=== PATIENT | female | born 1935 | race Caucasian/White ===

== ENCOUNTER 2017-03-08 11:25 | Inpatient (IN) ==
[2017-03-08] MEDS ORDERED: DOCUSATE SODIUM 100 MG CAPSULE PO PRN (12:14)
[2017-03-08] MEDS ORDERED: DEXTROSE 50% 25 GM/50 ML VIAL IV PRN (12:14)
[2017-03-08] MEDS ORDERED: ACETAMINOPHEN 325 MG TABLET PO PRN (12:14)
[2017-03-08] MEDS ORDERED: ONDANSETRON 4 MG/2 ML VIAL IV PRN (12:14)
[2017-03-08] MEDS ORDERED: GLUCAGON 1 MG VIAL IM PRN (12:14)
--- NOTE | 2017-03-08 12:40 | EKG Report ---
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
[2017-03-08 12:46] LABS: Basophils % 0.3 % (0.0-0.8); Eosinophils # 0.1 10*3/uL (0.0-0.87); Hematocrit 35.5 VOL% (35.7-47.0); Hemoglobin 11.8 GM/DL (12.0-16.0); Immature Granulocytes % 0.4 %; Immature Granulocytes Absolute 0.04 #; Lymphocytes # 1.5 10*3/uL (1.4-4.0); Lymphocytes % 14.7 % (21.3-54.2); Mean Corpuscular HGB Conc 33.2 GM/DL (32-36); Mean Corpuscular Hemoglobin 30 PG (27-34); Mean Corpuscular Volume 91.5 FL (87-102); Mean Platelet Volume 10.9 FL (9.6-12.0); Monocytes # 1.1 10*3/uL (0.11-0.8); Monocytes % 10.6 % (1.7-12.7); Neutrophils # 7.4 10*3/uL (1.4-7.4); Platelet Count 221 T/CUMM (130-400); Red Blood Count 3.88 MC/CUMM (3.8-5.5); White Blood Count 10.2 T/CUMM (4-12)
[2017-03-08 13:15] LABS: Albumin 3.2 G/DL (3.4-5.0); Bilirubin,Total 0.5 MG/DL (0.2-1.0); Calcium 10.2 MG/DL (8.5-10.1); Osmolality,Calculated 282.3 MOS/KG (273-304); Total Protein 6.6 G/DL (6.4-8.3)
--- NOTE | 2017-03-08 13:20 | Family Practice History&Phys ---
Assessment and Plan (1) Atrial fibrillation Status: Acute Assessment and plan: 03/08/2017: We are slowing her heart rate down some beta-blair and will get cardiology consult in the morning. We are checking some lab tonight Current Visit: No (2) Debility Status: Acute Assessment and plan: 03/08/2017. 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 Rice is a 81 year old female Lives at [facility]. Primary care patient of Dr. Corona. She has a history of intermittent atrial fibrillation. (Lately he has been in sinus rhythm), has a history of pacemaker. She is on beta-blair for this currently. Nonetheless she was very weak and noted to be back in atrial fibrillation and has some associated shortness of breath. She initially had a little chest fullness but never had any trell chest pain.. She also has a history of diabetes which is fairly well controlled with p.o. medications. At this time she also may have a urinary tract infection and we are going to treat this. Her culture did grow back halvnia lindsey and it is sensitive to Cipro which we will keep her on. Go with this time is to slow her rate down by increasing her beta-blair. I will get a cardiology consult in the morning Home Medications Medication Instructions Recorded Confirmed Type Cholecalciferol (Vitamin D3) 1,000 mg PO DAILY 06/25/16 03/08/17 History [Vitamin D3] Cyanocobalamin (Vitamin B-12) 1,000 mcg PO DAILY 06/25/16 03/08/17 History [Vitamin B-12] Estrogens(Conj) Tab [Premarin Tab] 0.625 mg PO DAILY 06/25/16 03/08/17 History Glimepiride [Amaryl] 2 mg PO BID 06/25/16 03/08/17 History Lidocaine [Lidocaine 5% Patch] 1 patch TOP DAILY 06/25/16 03/08/17 History Meloxicam [Mobic] 7.5 mg PO DAILY 06/25/16 03/08/17 History Sotalol HCl [Sotalol] 80 mg PO BID 06/25/16 03/08/17 History metFORMIN [Glucophage] 500 mg PO BID 06/25/16 03/08/17 History Acetaminophen Tab [Tylenol Tab] 650 mg PO Q6H PRN #0 tablet 07/08/16 03/08/17 Rx Gabapentin Cap/Tab [Neurontin 200 mg PO 1600 capsule 07/08/16 03/08/17 Rx Cap/Tab] Gabapentin Cap/Tab [Neurontin 300 mg PO BEDTIME capsule 07/08/16 03/08/17 Rx Cap/Tab] Magnesium Chloride [Slow Mag] 64 mg PO BID tablet 07/08/16 03/08/17 Rx Sertraline [Zoloft] 100 mg PO BEDTIME tablet 07/08/16 03/08/17 Rx Zaleplon [Sonata] 5 mg PO BEDTIME PRN #15 capsule 07/08/16 03/08/17 Rx cloNIDine TAB [Catapres Tab] 0.1 mg PO Q6H PRN #0 tablet 07/08/16 03/08/17 Rx clonazePAM TAB [KlonoPIN] 0.25 mg PO BEDTIME #15 tablet 07/08/16 03/08/17 Rx Aspirin EC Tab 325 mg PO DAILY #30 tablet 07/16/16 03/08/17 Rx Glimepiride 2 mg PO AC SUPPER #0 07/16/16 03/08/17 Rx OLANZapine [Olanzapine] 2.5 mg PO AC SUPPER #30 tablet 07/16/16 03/08/17 Rx OLANZapine TAB [ZyPREXA Tab] 5 mg PO Q8HR 03/08/17 03/08/17 History Allergies Allergy/AdvReac Type Severity Reaction Status Date / Time Penicillins Allergy Unknown/Unable Verified 07/05/16 02:19 to obtain potassium Allergy Anxiety Verified 06/25/16 12:26 penicillin V AdvReac Unknown Anxiety Verified 06/25/16 12:26 12 point system: reviewed and no additional remarkable complaints except as stated (That mentioned in the history and physical) Medical,Surgical,& Family Hx - Medical History Cardio: History of: Cardiac Dysrhythmia (A-Fib), Hypertension, Pacemaker Psychological: History of: Anxiety Disorders, Behavior Problems (pt has episodes of combativeness), Depression, Psychiatric Problems Comment Only: Violent Behavior (reported hx) Neurology: History of: Dementia No history of: Brain Aneurysm, Cerebral Hemorrhage, Cerebrovascular Accident , Cerebral Palsy, Migraine, Multiple Sclerosis, Parkinson's Disease, Peripheral Neuropathy, Seizures, TIA, Vertigo, Neurologocal Cancer Endocrine: History of: Diabetes Mellitus (IDDM), Diabetes Mellitus (NIDDM), Thyroid Disorder Gastrointestinal: History of: Diverticulitis/ Diverticulosis Musculoskeletal: History of: Back/Neck Problems, Degenerative Disk Disease - Surgical History Neurologic Surgeries: Patient denies: Brain Aneurysm, Cerebral Hemorrhage HEENT Surgeries: Surgical HX of: Tonsilectomy & Adenoidectomy Abdominal Surgeries: Surgical HX of: Abdominal Surgery, Cholecystectomy Reproductive Surgeries: Surgical HX of;: Hysterectomy (complete), Tubal Ligation - Social History Smoking Status: Former smoker Exam - Constitutional Exam: Patient very sluggish, weak unable to stand. Is somewhat confused at present HEENT pupils are equal reactive to light neck is supple trachea midline Cardiovascular rate is regular there is 1/6 systolic ejection murmur no gallop or rub Lungs clear except for a few basal rales Abdomen soft nondistended Extremities no clubbing cyanosis edema some week pedal pulses but positive Results - Labs CBC & BMP: 03/08/17 12:30
--- NOTE | 2017-03-08 13:24 | XRay Report ---
XR chest 1V portable Indication: Shortness of breath Comparison: Chest x-ray 07/04/2016 Technique: Portable AP chest was performed. Findings: The heart size appears within normal limits. Atherosclerotic calcification of the aortic knob appears stable. Cardiac pacemaker appears stable. Pulmonary vasculature demonstrates no specific abnormality. Hilar structures demonstrate fairly symmetric appearance. The lungs demonstrate little change from comparison study. Calcified nodules are suggested within the mid upper right lung. These nodules appear stable. Bones and soft tissues demonstrate no evidence of acute pathology. Impression: 1. No evidence of acute pathology. 03/08/2017 1:18 PM PROCEDURE INTERPRETED AT [facility] DEPARTMENT OF RADIOLOGY Final Report Signed by: Dr. Rocco Hansen
[2017-03-08] MEDS ORDERED: ENOXAPARIN 30 MG/0.3 ML SYRINGE SUBCUT SCH (13:30)
[2017-03-08] MEDS: SODIUM CHLORIDE 0.9% 1,000 ML IV SCH (13:32)
[2017-03-08 13:45] LABS: Free T4 (Free Thyroxine) 1.12 NG/DL (0.76-1.46); Magnesium 1.3 MG/DL (1.8-2.4); Troponin I Only < 0.015 NG/ML (0.00-0.045)
[2017-03-08] MEDS ORDERED: MAGNESIUM SULF RIDER 2 GM in PREMIX 1 EACH IV ONE (13:51)
[2017-03-08] MEDS ORDERED: OLANZapine 5 MG TABLET PO SCH (14:00)
[2017-03-08 14:58] LABS: Apearance,Urine CLEAR (Clear); Bilirubin,Urine Negative (Negative); Blood, Urine Negative (Negative); Glucose,Urine (UA) Negative (Negative); Hyaline Casts,Urine 3 /LPF (0-3); Ketones,Urine 5 mg/dL (Negative); Mucus,Urine Occasional /LPF (Occasional); Nitrite,Urine Negative (Negative); Protein,Urine Negative; RBC,Urine 2 /HPF (0-4); Squamous Epithelial Cell,Urine Occasional /HPF (0-10); Urine Color Yellow (Yellow); Urine Specific Gravity 1.012 (1.001-1.035); Urine Urobilinogen < 2.0 EU/DL (0.2-1.0); WBC,Urine 3 /HPF (0-6)
[2017-03-08] MEDS: INSULIN LISPRO 100 UNIT/ML SUBCUT SCH ×2 (17:02→20:20)
[2017-03-08] MEDS ORDERED: SOTALOL 80 MG TABLET PO ONE (19:16)
[2017-03-08] MEDS: SOTALOL 80 MG TABLET PO SCH (20:18)
[2017-03-08] MEDS: metFORMIN 500 MG TABLET PO SCH (20:20)
[2017-03-08] MEDS: GLIMEPIRIDE 2 MG TABLET PO SCH (21:23)
[2017-03-08] MEDS: clonazePAM 0.5 MG TABLET PO SCH (21:24)
[2017-03-08] MEDS: OLANZapine 5 MG TABLET PO SCH (21:25)
[2017-03-08] MEDS: SERTRALINE 100 MG TABLET PO SCH (21:25)
[2017-03-08] MEDS: MAGNESIUM CHLORIDE 64 MG TABLET PO SCH (21:25)
[2017-03-08] MEDS: CIPROFLOXACIN 500 MG TABLET PO SCH (21:25)
[2017-03-08] MEDS: GABAPENTIN 300 MG CAPSULE PO SCH (21:25)
[2017-03-09 06:12] LABS: Calcium 9.2 MG/DL (8.5-10.1); Magnesium 1.7 MG/DL (1.8-2.4); Osmolality,Calculated 281.3 MOS/KG (273-304)
[2017-03-09] MEDS: INSULIN LISPRO 100 UNIT/ML SUBCUT SCH ×4 (08:40→20:53)
--- NOTE | 2017-03-09 08:47 | Cardiology Consult Note ---
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 Status: Chronic Assessment and plan: SEE PLAN OF CARE LISTED BELOW Current Visit: No (5) Type 2 diabetes mellitus Status: Chronic Assessment and plan: SEE PLAN OF CARE LISTED BELOW Current Visit: No (6) Debility Status: Chronic Assessment and plan: SEE PLAN OF CARE LISTED BELOW Current Visit: No (7) S/P placement of cardiac pacemaker Status: Chronic Assessment and plan: SEE PLAN OF CARE LISTED BELOW Current Visit: Yes (8) Hypomagnesemia Status: Acute Assessment and plan: SEE PLAN OF CARE LISTED BELOW Current Visit: Yes History of Present Illness - Data of Consult Patient: new to practice (formerly a patient of Dr. Whitmore) Consult date: 03/08/17 Requesting Physician: Mann Rice Primary care physician: Taiwo Estevez - Consult Narrative Reason for consult: Afib w/ RVR History of present illness: HEAD NURSE: FORMERLY DR. WHITMORE PCP: DR. ESTEVEZ Ms. Rice is a 81 year old female who is formally followed by Dr. Paulo Whitmore. She has a history of paroxysmal atrial fibrillation, tachybradycardia syndrome status post dual-chamber pacemaker, chronic long-term dementia related to Alzheimer's, hypertension, type 2 diabetes, peripheral neuropathy. Risk factors are significant for: Age, hypertension, diabetes, sedentary lifestyle. The patient is the mother of Dr. Mann Rice. She resides at [facility] living [facility] in the memory care [facility]. Her daughter is at the bedside and helps in providing much of the history as the patient does have an impaired memory. Ms. Rice was admitted to the hospital yesterday with weakness, atrial fibrillation, and shortness of breath. Apparently Ms. Rice has been having weakness for the past week or so and has been undergoing treatment for urinary tract infection. Despite treatment, she has been getting weaker. Yesterday, the staff noticed that she was a little more short of breath than usual and when her [id number] went out to check on her, she noted that her heart rate was irregular and in the 120s. She denies any trell chest pain or chest discomfort, but her daughter is present and notes that she had some mild chest fullness. Patient has poor memory and does not recall these events very well. She has been on Sotalol 80mg PO BID and her dose has since been increased to 160mg PO BID. She is not currently on any chronic anticoagulation although her daughter reports she was on Aggrenox when she was fixing her medications approximately 8 months ago. To her knowledge, she has not had any overt bleeding episodes. Her H&H is currently stable. She has no other complaints presently and the daughter denies any knowledge of dizziness, lightheadedness, syncope. According to previous records by Dr. Whitmore, she has had a remote history of heart catheterization but it did not reveal any coronary artery disease. Dr. Mackay to follow with further plan and addendum. ASSESSMENT/PLAN: 1. PAROXYSMAL ATRIAL FIBRILLATION - Has been in and out of sinus rhythm. Currently in atrial fibrillation per cabbage salter. She was in NSR at approximately 0809 this morning and went back into AF a few minutes later. Her dose of Sotalol has been increased to 160mg PO BID. She is not currently on chronic anticoagulation which we will start her on. We'll start her on a beta blair to see if we can better control her heart rate. 2. HYPERTENSION - Currently well controlled. Will continue to monitor and adjust medications as directed. 3. URINARY TRACT INFECTION - Culture revealed halvnia lindsey and is sensitive to Cipro. Family medicine is following. 4. EARLY ONSET ALZHEIMER'S - She has chronic long-term dementia and is a resident of the memory care [facility] at [facility]. 5. TYPE 2 DIABETES MELLITUS - She has been started on sliding scale insulin. Family medicine is following. 6. DEBILITY - Physical therapy and Occupational therapy has been consulted to see her. 7. 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 Gonzalez on 12/27/13. 8. HYPOMAGNESEMIA - This is being replaced. CC: Taiwo Estevez MD - Home Medications and Allergies Home Medications: Home Medications Medication Instructions Recorded Confirmed Type Cholecalciferol (Vitamin D3) 1,000 mg PO DAILY 06/25/16 03/08/17 History [Vitamin D3] Cyanocobalamin (Vitamin B-12) 1,000 mcg PO DAILY 06/25/16 03/08/17 History [Vitamin B-12] Estrogens(Conj) Tab [Premarin Tab] 0.625 mg PO DAILY 06/25/16 03/08/17 History Glimepiride [Amaryl] 2 mg PO BID 06/25/16 03/08/17 History Lidocaine [Lidocaine 5% Patch] 1 patch TOP DAILY 06/25/16 03/08/17 History Meloxicam [Mobic] 7.5 mg PO DAILY 06/25/16 03/08/17 History Sotalol HCl [Sotalol] 80 mg PO BID 06/25/16 03/08/17 History metFORMIN [Glucophage] 500 mg PO BID 06/25/16 03/08/17 History Acetaminophen Tab [Tylenol Tab] 650 mg PO Q6H PRN #0 tablet 07/08/16 03/08/17 Rx Gabapentin Cap/Tab [Neurontin 200 mg PO 1600 capsule 07/08/16 03/08/17 Rx Cap/Tab] Gabapentin Cap/Tab [Neurontin 300 mg PO BEDTIME capsule 07/08/16 03/08/17 Rx Cap/Tab] Magnesium Chloride [Slow Mag] 64 mg PO BID tablet 07/08/16 03/08/17 Rx Sertraline [Zoloft] 100 mg PO BEDTIME tablet 07/08/16 03/08/17 Rx Zaleplon [Sonata] 5 mg PO BEDTIME PRN #15 capsule 07/08/16 03/08/17 Rx cloNIDine TAB [Catapres Tab] 0.1 mg PO Q6H PRN #0 tablet 07/08/16 03/08/17 Rx clonazePAM TAB [KlonoPIN] 0.25 mg PO BEDTIME #15 tablet 07/08/16 03/08/17 Rx Aspirin EC Tab 325 mg PO DAILY #30 tablet 07/16/16 03/08/17 Rx Glimepiride 2 mg PO AC SUPPER #0 07/16/16 03/08/17 Rx OLANZapine [Olanzapine] 2.5 mg PO AC SUPPER #30 tablet 07/16/16 03/08/17 Rx OLANZapine TAB [ZyPREXA Tab] 5 mg PO Q8HR 03/08/17 03/08/17 History Allergies/Adverse Reactions: Allergies Allergy/AdvReac Type Severity Reaction Status Date / Time Penicillins Allergy Unknown/Unable Verified 07/05/16 02:19 to obtain potassium Allergy Anxiety Verified 06/25/16 12:26 penicillin V AdvReac Unknown Anxiety Verified 06/25/16 12:26 ROS unobtainable: due to mental status, due to dementia 12 point system: reviewed and no additional remarkable complaints except as stated Medical,Surgical,& Family Hx - Medical History Cardio: History of: Cardiac Dysrhythmia (A-Fib), Hypertension, Pacemaker (dual chamber) Psychological: History of: Anxiety Disorders, Behavior Problems (pt has episodes of combativeness), Depression, Psychiatric Problems Comment Only: Violent Behavior (reported hx) Neurology: History of: Dementia No history of: Brain Aneurysm, Cerebral Hemorrhage, Cerebrovascular Accident , Cerebral Palsy, Migraine, Multiple Sclerosis, Parkinson's Disease, Peripheral Neuropathy, Seizures, TIA, Vertigo, Neurologocal Cancer Endocrine: History of: Diabetes Mellitus (IDDM), Diabetes Mellitus (NIDDM), Thyroid Disorder Gastrointestinal: History of: Diverticulitis/ Diverticulosis Musculoskeletal: History of: Back/Neck Problems, Degenerative Disk Disease - Surgical History Neurologic Surgeries: Patient denies: Brain Aneurysm, Cerebral Hemorrhage HEENT Surgeries: Surgical HX of: Tonsilectomy & Adenoidectomy Abdominal Surgeries: Surgical HX of: Abdominal Surgery, Cholecystectomy Reproductive Surgeries: Surgical HX of;: Hysterectomy (complete), Tubal Ligation - Social History Smoking Status: Former smoker Frequency of Alcohol Use: None (former alcohol use) Type of Drug Use: None Marital Status: Lives With:: [facility] Functional capacity: uses cane/walker Physical Examination Vital Signs Temp Pulse Resp BP Pulse Ox 99.9 F H 113 H 18 129/69 95 03/08/17 17:04 03/08/17 17:04 03/08/17 17:04 03/08/17 17:04 03/08/17 17:04 Other: General appearance: Pleasant and cooperative. Normal weight, no acute distress. Memory impairment. - Head Head exam: Present: normal inspection, normocephalic, atraumatic. Absent: hematoma, laceration - Eye Eye exam: Present: EOMI. Absent: conjunctival injection, nystagmus, periorbital swelling, scleral icterus, laceration to eyelids Pupils: Present: PERRL. Absent: constricted, dilated, fixed, irregular, unequal - ENT ENT exam: Present: normal exam, normal external ear exam - Neck Neck exam: Present: normal inspection. Absent: lymphadenopathy, meningismus, tenderness, thyromegaly - Respiratory Respiratory exam: Present: clear to auscultation bilaterally. Absent: accessory muscle use, chest wall tenderness - Cardiovascular Cardiovascular exam: Present: Irregular rate and rhythm, tachycardia. Absent: carotid bruit, gallop, JVD, rubs, murmur - GI/Abdominal GI/Abdominal exam: Present: normal bowel sounds, soft. Absent: distended, firm , guarding, hernia, mass, tenderness, rebound. - Extremities Exam Extremities exam: Present: normal inspection, normal capillary refill. Upper extremity pulses 2+. Lower extremity pulses 2+. Absent: calf tenderness, edema -Musculoskeletal Exam Musculoskeletal: Present: No Fluid Collection, No Pain, Normal Range of Motion - Back Exam Back exam: Present: normal inspection. Absent: muscle spasm, vertebral tenderness - Neurological Exam Neurological exam: Present: alert, oriented to person, grossly intact without resting or essential tremor, moderate memory impairment - Psychiatric Psychiatric exam: Present: normal affect, normal mood - Skin Skin exam: Present: normal color, warm, dry, intact. Absent: cyanosis, diaphoretic, rash, urticaria Result/EKG - Labs CBC & BMP: 03/08/17 12:30 03/09/17 04:21 Lab Results: I have reviewed the past 24 hour labs Labs: Laboratory Results - last 24 hr 03/08/17 03/08/17 03/08/17 12:28 12:30 12:30 WBC 10.2 RBC 3.88 Hgb 11.8 L Hct 35.5 L MCV 91.5 MCH 30 MCHC 33.2 RDW 13.0 Plt Count 221 MPV 10.9 Neut % (Auto) 73.0 Lymph % (Auto) 14.7 L [place] % (Auto) 10.6 Eos % (Auto) 1.0 Baso % (Auto) 0.3 Neut # (Auto) 7.4 Lymph # (Auto) 1.5 [place] # (Auto) 1.1 H Eos # (Auto) 0.1 Baso # (Auto) 0.0 Immature Gran % 0.4 Nucleated RBC % 0.0 Immature Gran # 0.04 Nucleated RBCs # 0.00 Sodium 141 Potassium 4.0 Chloride 103 Carbon Dioxide 29 Anion Gap 13.0 BUN 14 Creatinine 0.80 GFR Calculation 59 BUN/Creatinine Ratio 17.00 Glucose 110 H POC Glucose 121 H Calculated Osmolality 282.3 Calcium 10.2 H Magnesium Total Bilirubin 0.50 AST 13 ALT 11 L Alkaline Phosphatase 87 Total Creatine Kinase CK-MB (CK-2) Troponin I B-Natriuretic Peptide Total Protein 6.6 Albumin 3.2 L Globulin 3.4 Albumin/Globulin Ratio 0.9 L Free T4 TSH 3rd Generation Urine Color Urine Appearance Urine pH Ur Specific [place] Urine Protein Urine Glucose (UA) Urine Ketones Urine Blood Urine Nitrate Urine Bilirubin Urine Urobilinogen Urine Leukocytes Urine RBC Urine WBC Ur Squamous Epith Cells Hyaline Casts Urine Mucus Ur Culture Indicated? 03/08/17 03/08/17 03/08/17 12:30 12:30 14:41 WBC RBC Hgb Hct MCV MCH MCHC RDW Plt Count MPV Neut % (Auto) Lymph % (Auto) [place] % (Auto) Eos % (Auto) Baso % (Auto) Neut # (Auto) Lymph # (Auto) [place] # (Auto) Eos # (Auto) Baso # (Auto) Immature Gran % Nucleated RBC % Immature Gran # Nucleated RBCs # Sodium Potassium Chloride Carbon Dioxide Anion Gap BUN Creatinine GFR Calculation BUN/Creatinine Ratio Glucose POC Glucose Calculated Osmolality Calcium Magnesium 1.3 L Total Bilirubin AST ALT Alkaline Phosphatase Total Creatine Kinase 30 CK-MB (CK-2) < 1.0 Troponin I < 0.015 B-Natriuretic Peptide 93 Total Protein Albumin Globulin Albumin/Globulin Ratio Free T4 1.12 TSH 3rd Generation 1.930 Urine Color Yellow Urine Appearance Clear Urine pH 5.0 Ur Specific [place] 1.012 Urine Protein Negative Urine Glucose (UA) Negative Urine Ketones 5 Urine Blood Negative Urine Nitrate Negative Urine Bilirubin Negative Urine Urobilinogen < 2.0 H Urine Leukocytes Negative Urine RBC 2 Urine WBC 3 Ur Squamous Epith Cells Occasional Hyaline Casts 3 Urine Mucus Occasional Ur Culture Indicated? Not indicated 03/08/17 03/08/17 03/09/17 16:10 20:15 04:21 WBC RBC Hgb Hct MCV MCH MCHC RDW Plt Count MPV Neut % (Auto) Lymph % (Auto) [place] % (Auto) Eos % (Auto) Baso % (Auto) Neut # (Auto) Lymph # (Auto) [place] # (Auto) Eos # (Auto) Baso # (Auto) Immature Gran % Nucleated RBC % Immature Gran # Nucleated RBCs # Sodium 141 Potassium 4.0 Chloride 105 Carbon Dioxide 27 Anion Gap 13.0 BUN 12 Creatinine 0.80 GFR Calculation 59 BUN/Creatinine Ratio 15.00 Glucose 110 H POC Glucose 276 H 85 Calculated Osmolality 281.3 Calcium 9.2 Magnesium 1.7 L Total Bilirubin AST ALT Alkaline Phosphatase Total Creatine Kinase CK-MB (CK-2) Troponin I B-Natriuretic Peptide Total Protein Albumin Globulin Albumin/Globulin Ratio Free T4 TSH 3rd Generation Urine Color Urine Appearance Urine pH Ur Specific [place] Urine Protein Urine Glucose (UA) Urine Ketones Urine Blood Urine Nitrate Urine Bilirubin Urine Urobilinogen Urine Leukocytes Urine RBC Urine WBC Ur Squamous Epith Cells Hyaline Casts Urine Mucus Ur Culture Indicated? 03/09/17 07:58 WBC RBC Hgb Hct MCV MCH MCHC RDW Plt Count MPV Neut % (Auto) Lymph % (Auto) [place] % (Auto) Eos % (Auto) Baso % (Auto) Neut # (Auto) Lymph # (Auto) [place] # (Auto) Eos # (Auto) Baso # (Auto) Immature Gran % Nucleated RBC % Immature Gran # Nucleated RBCs # Sodium Potassium Chloride Carbon Dioxide Anion Gap BUN Creatinine GFR Calculation BUN/Creatinine Ratio Glucose POC Glucose 140 H Calculated Osmolality Calcium Magnesium Total Bilirubin AST ALT Alkaline Phosphatase Total Creatine Kinase CK-MB (CK-2) Troponin I B-Natriuretic Peptide Total Protein Albumin Globulin Albumin/Globulin Ratio Free T4 TSH 3rd Generation Urine Color Urine Appearance Urine pH Ur Specific [place] Urine Protein Urine Glucose (UA) Urine Ketones Urine Blood Urine Nitrate Urine Bilirubin Urine Urobilinogen Urine Leukocytes Urine RBC Urine WBC Ur Squamous Epith Cells Hyaline Casts Urine Mucus Ur Culture Indicated? - EKG EKG results: interpreted by me EKG shows: atrial fibrillation
[2017-03-09] MEDS: OLANZapine 5 MG TABLET PO SCH ×3 (08:51→20:56)
[2017-03-09] MEDS: CYANOCOBALAMIN 500 MCG TABLET PO SCH (08:51)
[2017-03-09] MEDS: CHOLECALCIFEROL 1,000 UNIT TABLET PO SCH (08:51)
[2017-03-09] MEDS: ESTROGENS (CONJ) 0.625 MG TABLET PO SCH (08:51)
[2017-03-09] MEDS: ASPIRIN EC 325 MG TABLET PO SCH (08:52)
[2017-03-09] MEDS: CIPROFLOXACIN 500 MG TABLET PO SCH ×2 (08:52→21:02)
[2017-03-09] MEDS: MAGNESIUM CHLORIDE 64 MG TABLET PO SCH ×2 (08:52→21:02)
[2017-03-09] MEDS: metFORMIN 500 MG TABLET PO SCH ×2 (08:52→21:02)
[2017-03-09] MEDS: GLIMEPIRIDE 2 MG TABLET PO SCH ×2 (08:52→20:58)
[2017-03-09] MEDS: PANTOPRAZOLE 40 MG TABLET PO SCH (08:52)
[2017-03-09] MEDS: SOTALOL 80 MG TABLET PO SCH ×2 (08:52→20:59)
[2017-03-09] MEDS: MELOXICAM 7.5 MG TABLET PO SCH (08:53)
[2017-03-09] MEDS: SODIUM CHLORIDE 0.9% 1,000 ML IV SCH (08:54)
--- NOTE | 2017-03-09 09:06 | Internal Med Progress Note ---
Assessment and Plan (1) Atrial fibrillation Status: Acute Assessment and plan: 81-year-old female admitted to acute care * Atrial fibrillation with rapid ventricular rate. She has history of paroxysmal atrial fibrillation. She is on Lovenox and her sotalol was increased. Cardiology will see the patient * UTI. Patient will be continued on Cipro. Her cultures were done in the office. * Diabetes. Patient will be continued on metformin and glimepiride * Alzheimer's dementia. Patient will continue on olanzapine. * Discussed with her son and daughter Current Visit: No (2) Urinary tract infection Status: Acute Current Visit: Yes (3) Hypertension Status: Acute Current Visit: No (4) Type 2 diabetes mellitus Status: Acute Current Visit: No Internal Medicine - PN: Subj Interval history: Patient seen and examined. She was admitted yesterday with A. fib and rapid ventricular rate. Patient's sotalol was increased by Dr. Rice. She denies any complaints. Patient has advanced dementia and is unable to provide any history. She denies any chest pain or shortness of breath. She denies any nausea or vomiting Exam (Progress Note) - Constitutional Vitals: Period Temp Pulse Resp BP Sys/Sykes Pulse Ox Last 24 Hr 97.8 F-100.8 F 81-131 12-21 109-169/57-90 90-95 Exam: Examination: GENERAL: NAD. HEENT: PERRLA. EOMI. Mucous membranes are moist. NECK: Neck is supple. No JVD. No carotid bruit. CVS: Rhythm is irregularly irregular. S1 and S2 are normal RESPIRATORY: Lungs are clear. No rales or rhonchi. ABDOMEN: Soft and nontender. Bowel sounds are present. EXT: No edema. Peripheral pulses are present. PAY AGENT: Patient is awake and alert but extremely confused. She is moving both upper and lower extremities SKIN: Warm and dry. MSK: No obvious deformity. Results - Labs CBC & BMP: 03/08/17 12:30 03/09/17 04:21 Lab Results: I have reviewed the past 24 hour labs
[2017-03-09] MEDS ORDERED: APIXABAN 2.5 MG TABLET PO SCH (09:30)
[2017-03-09] MEDS ORDERED: METOPROLOL TARTRATE 25 MG TABLET PO SCH (09:30)
--- NOTE | 2017-03-09 09:33 | EKG Report ---
Stationary ECG Study [facility] Test Date: 03/09/2017 9:32:31 AM Pat Name: SAMINA ROMERO Department: Room: 289 Gender: F Rn Admissions: JERONIMO : 1935 Requested by: Tsering Christie Order Number: [id number] Reading MD: ALBA HANDLEY Intervals [place] Rate: 114 P: 249 NV: 238 QRS: -87 QRSD: 117 T: 58 QT: 383 QTc: 450 Interpretive Statements ECTOPIC ATRIAL TACHYCARDIA WITH PROLONGED [place] INTERVAL RIGHT BUNDLE BRANCH BLOCK POSSIBLE ANTERIOR MYOCARDIAL INFARCTION, OF INDETERMINATE AGE IF PRESENT INFERIOR MYOCARDIAL INFARCTION, PROBABLY OLD Electronically Signed On 03-09-17 11:54:06 CDT by ALBA HANDLEY [email or web address]
[2017-03-09] MEDS ORDERED: MAGNESIUM SULF RIDER 2 GM in PREMIX 1 EACH IV PRN (10:01)
[2017-03-09] MEDS ORDERED: MAGNESIUM SULF RIDER 4 GM in PREMIX 1 EACH IV PRN (10:01)
[2017-03-09] MEDS: DILTIAZEM CD 120 MG CAPSULE PO SCH (10:40)
[2017-03-09] MEDS: clonazePAM 0.5 MG TABLET PO SCH (20:55)
[2017-03-09] MEDS: GABAPENTIN 300 MG CAPSULE PO SCH (20:56)
[2017-03-09] MEDS: SERTRALINE 100 MG TABLET PO SCH (20:56)
[2017-03-10] MEDS: SODIUM CHLORIDE 0.9% 1,000 ML IV SCH (05:27)
[2017-03-10 06:12] LABS: Basophils % 0.3 % (0.0-0.8); Eosinophils # 0.2 10*3/uL (0.0-0.87); Hematocrit 34.8 VOL% (35.7-47.0); Hemoglobin 11.4 GM/DL (12.0-16.0); Immature Granulocytes % 0.4 %; Immature Granulocytes Absolute 0.03 #; Lymphocytes % 13.5 % (21.3-54.2); Mean Corpuscular HGB Conc 32.8 GM/DL (32-36); Mean Corpuscular Hemoglobin 31 PG (27-34); Mean Corpuscular Volume 93.5 FL (87-102); Mean Platelet Volume 11.1 FL (9.6-12.0); Monocytes # 0.7 10*3/uL (0.11-0.8); Neutrophils # 5.6 10*3/uL (1.4-7.4); Neutrophils % 74.8 % (38.7-73.9); Platelet Count 235 T/CUMM (130-400); Red Blood Count 3.72 MC/CUMM (3.8-5.5); Red Cell Distribution Width 12.9 % (9.3-17.3); White Blood Count 7.5 T/CUMM (4-12)
[2017-03-10 06:32] LABS: Platelet Estimate Adequate
[2017-03-10 06:53] LABS: Calcium 8.8 MG/DL (8.5-10.1); Magnesium 1.9 MG/DL (1.8-2.4); Osmolality,Calculated 286.8 MOS/KG (273-304); Potassium 4.2 MMOL/L (3.5-5.1)
--- NOTE | 2017-03-10 08:13 | EKG Report ---
Stationary ECG Study [facility] Test Date: 03/10/2017 7:35:12 AM Pat Name: SAMINA ROMERO Department: Room: 289 Gender: F Counselor Manager: JERONIMO : 1935 Requested by: sTering Christie Order Number: [id number] Reading MD: ALBA HANDLEY Intervals [place] Rate: 100 P: 999 ME: 0 QRS: 213 QRSD: 121 T: 44 QT: 396 QTc: 453 Interpretive Statements ATRIAL FIBRILLATION WITH RAPID VENTRICULAR RESPONSE MARKED RIGHT AXIS DEVIATION INFERIOR MYOCARDIAL INFARCTION, PROBABLY OLD Electronically Signed On 03-10-17 14:41:27 CDT by ALBA HANDLEY [id number]
[2017-03-10] MEDS: CIPROFLOXACIN 500 MG TABLET PO SCH ×2 (08:59→21:07)
[2017-03-10] MEDS: PANTOPRAZOLE 40 MG TABLET PO SCH (08:59)
[2017-03-10] MEDS: GLIMEPIRIDE 2 MG TABLET PO SCH ×2 (08:59→21:07)
[2017-03-10] MEDS: OLANZapine 5 MG TABLET PO SCH ×3 (08:59→21:07)
[2017-03-10] MEDS: CYANOCOBALAMIN 500 MCG TABLET PO SCH (08:59)
[2017-03-10] MEDS: ESTROGENS (CONJ) 0.625 MG TABLET PO SCH (08:59)
[2017-03-10] MEDS: ASPIRIN EC 325 MG TABLET PO SCH (08:59)
[2017-03-10] MEDS: MELOXICAM 7.5 MG TABLET PO SCH (09:00)
[2017-03-10] MEDS: SOTALOL 80 MG TABLET PO SCH ×2 (09:00→21:07)
[2017-03-10] MEDS: CHOLECALCIFEROL 1,000 UNIT TABLET PO SCH (09:00)
[2017-03-10] MEDS: INSULIN LISPRO 100 UNIT/ML SUBCUT SCH ×4 (09:00→21:08)
[2017-03-10] MEDS: metFORMIN 500 MG TABLET PO SCH ×2 (09:00→21:07)
[2017-03-10] MEDS: MAGNESIUM CHLORIDE 64 MG TABLET PO SCH ×2 (09:00→21:07)
[2017-03-10] MEDS: DILTIAZEM CD 120 MG CAPSULE PO SCH (09:00)
--- NOTE | 2017-03-10 09:48 | Internal Med Progress Note ---
Assessment and Plan (1) Atrial fibrillation Status: Acute Assessment and plan: 81-year-old female admitted to acute care * Atrial fibrillation with rapid ventricular rate. Cardizem was added. Heart rate is better controlled but still elevated. * UTI. Patient will be continued on Cipro. * Diabetes. Patient will be continued on metformin and glimepiride * Alzheimer's dementia. Patient will continue on olanzapine. * Discussed with her daughter Current Visit: No (2) Urinary tract infection Status: Acute Current Visit: Yes (3) Hypertension Status: Chronic Current Visit: No (4) Type 2 diabetes mellitus Status: Chronic Current Visit: No Internal Medicine - PN: Subj Interval history: She is feeling better this morning. She is more clear. No chest pain or shortness of breath. No nausea vomiting or diarrhea. Exam (Progress Note) - Constitutional Vitals: Period Temp Pulse Resp BP Sys/Sykes Pulse Ox Last 24 Hr 96.9 F-99.8 F 62-118 16-20 106-128/58-74 90-96 Exam: Examination: GENERAL: NAD. NECK: Neck is supple. CVS: Rhythm is irregularly irregular. S1 and S2 are normal RESPIRATORY: Lungs are clear. No rales or rhonchi. ABDOMEN: Soft and nontender. EXT: No edema. UNDER SHERIFF: Patient is awake and alert but extremely confused. SKIN: Warm and dry. Results - Labs CBC & BMP: 03/10/17 05:21 03/10/17 05:21 Lab Results: I have reviewed the past 24 hour labs
--- NOTE | 2017-03-10 15:30 | Cardiology Progress Note ---
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 WHITMORE, will need F/U with DR. HANDLEY PCP: DR. WAGNER Ms. Rice is a 81 year old female who was admitted to the hospital yesterday with weakness, atrial fibrillation, and shortness of breath. She has a history of paroxysmal atrial fibrillation, tachybradycardia syndrome status post dual-chamber pacemaker, chronic long-term dementia related to Alzheimer's, hypertension, type 2 diabetes, peripheral neuropathy. Ms. Rice was admitted with A. fib/RVR, UTI, dehydration, hypomagnesemia, malaise and chest pain. Symptoms improved with electrolyte and fluid repletion, antibiotics. We continued her Sotalol at 80mg PO BID and started her on Cardizem CD 120mg po daily. She has a CHADSVASC 7. Previously, she could not tolerate even Aggrenox due to very frail skin. She is not a candidate for anticoagulation or VASYL closure. We will continue aspirin. Overall, she is improved today. She seems a little stronger. She is much more talkative today although she still has a significant memory impairment. Dr. Mackay to follow with further plan and addendum. Upon discharge, she will need follow up with Dr. Handley. ASSESSMENT/PLAN: 1. PAROXYSMAL ATRIAL FIBRILLATION - Has been in and out of sinus rhythm. Currently sinus rhythm per lab scientist. Rates are better controlled since adding Cardizem. She has been running in the 90's this afternoon. She did complain of some chest pain but has had a negative CAD evaluation in the past. Her RVR may have contributed to this. We will continue to pursue medical management at this time. 2. HYPERTENSION - Currently well controlled. Will continue to monitor and adjust medications as directed. 3. URINARY TRACT INFECTION - Culture revealed halvnia lindsey and is sensitive to Cipro. Family medicine is following. 4. EARLY ONSET ALZHEIMER'S - She has chronic long-term dementia and is a resident of the memory care [facility] at [facility]. 5. TYPE 2 DIABETES MELLITUS - She has been started on sliding scale insulin. Family medicine is following. 6. DEBILITY - Physical therapy and Occupational therapy have been consulted to see her. Given her weakened state, neonatal social worker has discussed with her daughter the possibility of transfer to a rehab facility or swingbed unit prior to her return to assisted living. I was present for this discussion today and her daughter seemed agreeable to this plan. 7. 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 Handley on 12/27/13. We will have her PM interrogated. 8. HYPOMAGNESEMIA - Continue replacement. Exam (Progress Note) - Constitutional Vitals: Period Temp Pulse Resp BP Sys/Sykes Pulse Ox Last 24 Hr 96.9 F-99.8 F 62-118 16-18 106-128/58-74 92-96 Exam: General appearance: Pleasant and cooperative. Normal weight, no acute distress. Memory impairment. - Head Head exam: Present: normal inspection, normocephalic, atraumatic. Absent: hematoma, laceration - Eye Eye exam: Present: EOMI. Absent: conjunctival injection, nystagmus, periorbital swelling, scleral icterus, laceration to eyelids Pupils: Present: PERRL. Absent: constricted, dilated, fixed, irregular, unequal - ENT ENT exam: Present: normal exam, normal external ear exam - Neck Neck exam: Present: normal inspection. Absent: lymphadenopathy, meningismus, tenderness, thyromegaly - Respiratory Respiratory exam: Present: clear to auscultation bilaterally. Absent: accessory muscle use, chest wall tenderness - Cardiovascular Cardiovascular exam: Present: Regular rate and rhythm. Absent: carotid bruit, gallop, JVD, rubs, murmur - GI/Abdominal GI/Abdominal exam: Present: normal bowel sounds, soft. Absent: distended, firm , guarding, hernia, mass, tenderness, rebound. - Extremities Exam Extremities exam: Present: normal inspection, normal capillary refill. Upper extremity pulses 2+. Lower extremity pulses 2+. Absent: calf tenderness, edema -Musculoskeletal Exam Musculoskeletal: Present: No Fluid Collection, No Pain, Normal Range of Motion - Back Exam Back exam: Present: normal inspection. Absent: muscle spasm, vertebral tenderness - Neurological Exam Neurological exam: Present: alert, oriented to person, grossly intact without resting or essential tremor, moderate memory impairment - Psychiatric Psychiatric exam: Present: normal affect, normal mood - Skin Skin exam: Present: normal color, warm, dry, intact. Absent: cyanosis, diaphoretic, rash, urticaria Result/EKG - Labs CBC & BMP: 03/10/17 05:21 03/10/17 05:21 Lab Results: I have reviewed the past 24 hour labs Labs: Laboratory Results - last 24 hr 03/09/17 03/09/17 03/09/17 12:32 16:54 20:23 WBC RBC Hgb Hct MCV MCH MCHC RDW Plt Count MPV Neut % (Auto) Lymph % (Auto) [place] % (Auto) Eos % (Auto) Baso % (Auto) Neut # (Auto) Lymph # (Auto) [place] # (Auto) Eos # (Auto) Baso # (Auto) Immature Gran % Nucleated RBC % Immature Gran # Nucleated RBCs # Platelet Estimate Morphology Comment Sodium Potassium Chloride Carbon Dioxide Anion Gap BUN Creatinine GFR Calculation BUN/Creatinine Ratio Glucose POC Glucose 160 H 167 H 315 H Calculated Osmolality Calcium Magnesium 03/10/17 03/10/17 03/10/17 05:21 05:21 07:55 WBC 7.5 RBC 3.72 L Hgb 11.4 L Hct 34.8 L MCV 93.5 MCH 31 MCHC 32.8 RDW 12.9 Plt Count 235 MPV 11.1 Neut % (Auto) 74.8 H Lymph % (Auto) 13.5 L [place] % (Auto) 9.0 Eos % (Auto) 2.0 Baso % (Auto) 0.3 Neut # (Auto) 5.6 Lymph # (Auto) 1.0 L [place] # (Auto) 0.7 Eos # (Auto) 0.2 Baso # (Auto) 0.0 Immature Gran % 0.4 Nucleated RBC % 0.0 Immature Gran # 0.03 Nucleated RBCs # 0.00 Platelet Estimate Adequate Morphology Comment Sodium 144 Potassium 4.2 Chloride 110 H Carbon Dioxide 25 Anion Gap 13.2 BUN 14 Creatinine 0.80 GFR Calculation 59 BUN/Creatinine Ratio 17.00 Glucose 98 POC Glucose 108 H Calculated Osmolality 286.8 Calcium 8.8 Magnesium 1.9 03/10/17 11:26 WBC RBC Hgb Hct MCV MCH MCHC RDW Plt Count MPV Neut % (Auto) Lymph % (Auto) [place] % (Auto) Eos % (Auto) Baso % (Auto) Neut # (Auto) Lymph # (Auto) [place] # (Auto) Eos # (Auto) Baso # (Auto) Immature Gran % Nucleated RBC % Immature Gran # Nucleated RBCs # Platelet Estimate Morphology Comment Sodium Potassium Chloride Carbon Dioxide Anion Gap BUN Creatinine GFR Calculation BUN/Creatinine Ratio Glucose POC Glucose 230 H Calculated Osmolality Calcium Magnesium - EKG EKG results: interpreted by me, sinus rhythm
[2017-03-10] MEDS: DOCUSATE SODIUM 100 MG CAPSULE PO SCH (21:06)
[2017-03-10] MEDS: SERTRALINE 100 MG TABLET PO SCH (21:07)
[2017-03-10] MEDS: clonazePAM 0.5 MG TABLET PO SCH (21:07)
[2017-03-10] MEDS: GABAPENTIN 300 MG CAPSULE PO SCH (21:08)
[2017-03-11 06:16] LABS: Basophils % 0.5 % (0.0-0.8); Eosinophils # 0.2 10*3/uL (0.0-0.87); Eosinophils % 3.1 % (0.00-10.9); Hematocrit 31.4 VOL% (35.7-47.0); Immature Granulocytes % 0.3 %; Immature Granulocytes Absolute 0.02 #; Lymphocytes # 1.2 10*3/uL (1.4-4.0); Lymphocytes % 18.7 % (21.3-54.2); Mean Corpuscular HGB Conc 31.8 GM/DL (32-36); Mean Corpuscular Hemoglobin 30 PG (27-34); Mean Corpuscular Volume 93.2 FL (87-102); Mean Platelet Volume 11.4 FL (9.6-12.0); Monocytes # 0.8 10*3/uL (0.11-0.8); Monocytes % 12.6 % (1.7-12.7); Neutrophils # 4.2 10*3/uL (1.4-7.4); Neutrophils % 64.8 % (38.7-73.9); Platelet Count 263 T/CUMM (130-400); Red Blood Count 3.37 MC/CUMM (3.8-5.5); White Blood Count 6.5 T/CUMM (4-12)
[2017-03-11 06:45] LABS: Calcium 8.5 MG/DL (8.5-10.1); Osmolality,Calculated 288.6 MOS/KG (273-304); Potassium 4.3 MMOL/L (3.5-5.1)
--- NOTE | 2017-03-11 07:52 | EKG Report ---
Stationary ECG Study [facility] Test Date: 03/11/2017 7:51:59 AM Pat Name: SAMINA ROMERO Department: Room: 289 Gender: F Lunchroom Operator: JERONIMO : 1935 Requested by: Tsering Christie Order Number: [id number] Reading MD: DUNCAN TOUSSAINT Intervals [place] Rate: 108 P: 999 SD: 0 QRS: 259 QRSD: 105 T: 64 QT: 349 QTc: 412 Interpretive Statements ATRIAL FIBRILLATION WITH RAPID VENTRICULAR RESPONSE MARKED RIGHT AXIS DEVIATION LOW QRS VOLTAGE IN EXTREMITY LEADS ANTEROSEPTAL MYOCARDIAL INFARCTION, OF INDETERMINATE AGE Electronically Signed On 03-11-17 21:54:22 CDT by DUNCAN TOUSSAINT [email or web address]
--- NOTE | 2017-03-11 08:52 | Internal Med Progress Note ---
Assessment and Plan (1) Atrial fibrillation Status: Acute Assessment and plan: 81-year-old female admitted to acute care * Atrial fibrillation with rapid ventricular rate. Patient converted to sinus rhythm yesterday. Her heart rate has been well controlled except for this morning. * UTI. Patient will be continued on Cipro. * Diabetes. Patient will be continued on metformin and glimepiride * Alzheimer's dementia. Patient will continue on olanzapine. * Constipation. Will give her MiraLAX as needed. Hopefully home later today or tomorrow. * Discussed with her daughter Current Visit: No (2) Urinary tract infection Status: Acute Current Visit: Yes (3) Hypertension Status: Chronic Current Visit: No (4) Type 2 diabetes mellitus Status: Chronic Current Visit: No Internal Medicine - PN: Subj Interval history: She is feeling better this morning. No specific complaints. No bowel movement for several days Exam (Progress Note) - Constitutional Vitals: Period Temp Pulse Resp BP Sys/Sykes Pulse Ox Last 24 Hr 96.7 F-100.5 F 65-111 16-22 104-154/60-79 90-96 Exam: Examination: GENERAL: NAD. NECK: Neck is supple. CVS: Rhythm is regular. She is tachycardic. S1 and S2 are normal RESPIRATORY: Lungs are clear. No rales or rhonchi. ABDOMEN: Soft and nontender. EXT: No edema. PSYCHIATRIC SOCIAL WORKER SUPERVISOR: Patient is awake and alert with decreased confusion SKIN: Warm and dry. Results - Labs CBC & BMP: 03/11/17 04:19 03/11/17 04:19 Lab Results: I have reviewed the past 24 hour labs
[2017-03-11] MEDS: CYANOCOBALAMIN 500 MCG TABLET PO SCH (10:34)
[2017-03-11] MEDS: metFORMIN 500 MG TABLET PO SCH ×2 (10:35→23:06)
[2017-03-11] MEDS: SOTALOL 80 MG TABLET PO SCH ×2 (10:35→23:06)
[2017-03-11] MEDS: DILTIAZEM CD 120 MG CAPSULE PO SCH (10:35)
[2017-03-11] MEDS: OLANZapine 5 MG TABLET PO SCH ×3 (10:35→23:06)
[2017-03-11] MEDS: DOCUSATE SODIUM 100 MG CAPSULE PO SCH ×2 (10:35→23:03)
[2017-03-11] MEDS: CHOLECALCIFEROL 1,000 UNIT TABLET PO SCH (10:35)
[2017-03-11] MEDS: ASPIRIN EC 325 MG TABLET PO SCH (10:35)
[2017-03-11] MEDS: PANTOPRAZOLE 40 MG TABLET PO SCH (10:35)
[2017-03-11] MEDS: MELOXICAM 7.5 MG TABLET PO SCH (10:35)
[2017-03-11] MEDS: CIPROFLOXACIN 500 MG TABLET PO SCH ×2 (10:36→23:03)
[2017-03-11] MEDS: INSULIN LISPRO 100 UNIT/ML SUBCUT SCH ×4 (10:36→23:02)
[2017-03-11] MEDS: GLIMEPIRIDE 2 MG TABLET PO SCH ×2 (10:36→23:03)
[2017-03-11] MEDS: MAGNESIUM CHLORIDE 64 MG TABLET PO SCH ×2 (10:36→23:03)
[2017-03-11] MEDS: ESTROGENS (CONJ) 0.625 MG TABLET PO SCH (10:36)
[2017-03-11] MEDS: POLYETHYLENE GLYCOL POWDER 17 GM PACK PO PRN (10:37)
--- NOTE | 2017-03-11 16:24 | Cardiology Progress Note ---
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 WHITMORE, will need F/U with DR. HANDLEY PCP: DR. WAGNER Ms. Rice is a 81 year old female who was admitted to the hospital yesterday with weakness, atrial fibrillation, and shortness of breath. She has a history of paroxysmal atrial fibrillation, tachybradycardia syndrome status post dual-chamber pacemaker, chronic long-term dementia related to Alzheimer's, hypertension, type 2 diabetes, peripheral neuropathy. Ms. Rice was admitted with A. fib/RVR, UTI, dehydration, hypomagnesemia, malaise and chest pain. Symptoms improved with electrolyte and fluid repletion, antibiotics. We continued her Sotalol at 80mg PO BID and started her on Cardizem CD 120mg po daily. She has a CHADSVASC 7. Previously, she could not tolerate even Aggrenox due to very frail skin. She is not a candidate for anticoagulation or VASYL closure. We will continue aspirin. Overall, she is improved today. She seems a little stronger. She is much more talkative today although she still has a significant memory impairment. She did have some elevated heart rates today, but these were noted after showering and after walking in the halls. At rest, she still is borderline tachycardic. We'll increase her Cardizem to 180mg po daily. I believe she will be discharged home tomorrow. ASSESSMENT/PLAN: 1. PAROXYSMAL ATRIAL FIBRILLATION - Has been in and out of sinus rhythm. Currently sinus rhythm per software developer intern. Rates are better controlled since adding Cardizem. She has been running in the 90's this afternoon. She did complain of some chest pain but has had a negative CAD evaluation in the past. Her RVR may have contributed to this. We will continue to pursue medical management at this time. 2. HYPERTENSION - Currently well controlled. Will continue to monitor and adjust medications as directed. 3. URINARY TRACT INFECTION - Culture revealed halvnia lindsey and is sensitive to Cipro. Family medicine is following. 4. EARLY ONSET ALZHEIMER'S - She has chronic long-term dementia and is a resident of the memory care [facility] at [facility]. 5. TYPE 2 DIABETES MELLITUS - She has been started on sliding scale insulin. Family medicine is following. 6. DEBILITY - Physical therapy and Occupational therapy have been consulted to see her. Given her weakened state, social work associate has discussed with her daughter the possibility of transfer to a rehab facility or swingbed unit prior to her return to assisted living. I was present for this discussion today and her daughter seemed agreeable to this plan. 7. 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 Handley on 12/27/13. We will have her PM interrogated. 8. HYPOMAGNESEMIA - Continue replacement. Dr. Mackay to follow with further plan and addendum. Upon discharge, she will need follow up with Dr. Handley. Exam (Progress Note) - Constitutional Vitals: Period Temp Pulse Resp BP Sys/Sykes Pulse Ox Last 24 Hr 96.7 F-100.5 F 65-114 16-22 117-154/60-79 90-96 Exam: General appearance: Pleasant and cooperative. Normal weight, no acute distress. Memory impairment. - Head Head exam: Present: normal inspection, normocephalic, atraumatic. Absent: hematoma, laceration - Eye Eye exam: Present: EOMI. Absent: conjunctival injection, nystagmus, periorbital swelling, scleral icterus, laceration to eyelids Pupils: Present: PERRL. Absent: constricted, dilated, fixed, irregular, unequal - ENT ENT exam: Present: normal exam, normal external ear exam - Neck Neck exam: Present: normal inspection. Absent: lymphadenopathy, meningismus, tenderness, thyromegaly - Respiratory Respiratory exam: Present: clear to auscultation bilaterally. Absent: accessory muscle use, chest wall tenderness - Cardiovascular Cardiovascular exam: Present: Regular rate and rhythm. Absent: carotid bruit, gallop, JVD, rubs, murmur - GI/Abdominal GI/Abdominal exam: Present: normal bowel sounds, soft. Absent: distended, firm , guarding, hernia, mass, tenderness, rebound. - Extremities Exam Extremities exam: Present: normal inspection, normal capillary refill. Upper extremity pulses 2+. Lower extremity pulses 2+. Absent: calf tenderness, edema -Musculoskeletal Exam Musculoskeletal: Present: No Fluid Collection, No Pain, Normal Range of Motion - Back Exam Back exam: Present: normal inspection. Absent: muscle spasm, vertebral tenderness - Neurological Exam Neurological exam: Present: alert, oriented to person, grossly intact without resting or essential tremor, moderate memory impairment - Psychiatric Psychiatric exam: Present: normal affect, normal mood - Skin Skin exam: Present: normal color, warm, dry, intact. Absent: cyanosis, diaphoretic, rash, urticaria Result/EKG - Labs CBC & BMP: 03/11/17 04:19 03/11/17 04:19 Lab Results: I have reviewed the past 24 hour labs Labs: Laboratory Results - last 24 hr 03/10/17 03/10/17 03/11/17 16:06 20:02 04:19 WBC 6.5 RBC 3.37 L Hgb 10.0 L Hct 31.4 L MCV 93.2 MCH 30 MCHC 31.8 L RDW 13.0 Plt Count 263 MPV 11.4 Neut % (Auto) 64.8 Lymph % (Auto) 18.7 L [place] % (Auto) 12.6 Eos % (Auto) 3.1 Baso % (Auto) 0.5 Neut # (Auto) 4.2 Lymph # (Auto) 1.2 L Iron # (Auto) 0.8 Eos # (Auto) 0.2 Baso # (Auto) 0.0 Immature Gran % 0.3 Nucleated RBC % 0.0 Immature Gran # 0.02 Nucleated RBCs # 0.00 Sodium Potassium Chloride Carbon Dioxide Anion Gap BUN Creatinine GFR Calculation BUN/Creatinine Ratio Glucose POC Glucose 144 H 255 H Calculated Osmolality Calcium 03/11/17 03/11/1717 04:19 07:17 11:13 WBC RBC Hgb Hct MCV MCH MCHC RDW Plt Count MPV Neut % (Auto) Lymph % (Auto) [place] % (Auto) Eos % (Auto) Baso % (Auto) Neut # (Auto) Lymph # (Auto) [place] # (Auto) Eos # (Auto) Baso # (Auto) Immature Gran % Nucleated RBC % Immature Gran # Nucleated RBCs # Sodium 146 H Potassium 4.3 Chloride 113 H Carbon Dioxide 23 Anion Gap 14.3 BUN 12 Creatinine 0.90 GFR Calculation 51 BUN/Creatinine Ratio 13.00 Glucose 83 POC Glucose 91 248 H Calculated Osmolality 288.6 Calcium 8.5 - EKG EKG results: interpreted by me (AV paced with underlying sinus rhythm, occasional tachycardia)
[2017-03-11] MEDS: clonazePAM 0.5 MG TABLET PO SCH (22:58)
[2017-03-11] MEDS: GABAPENTIN 300 MG CAPSULE PO SCH (23:03)
[2017-03-11] MEDS: SERTRALINE 100 MG TABLET PO SCH (23:06)
[2017-03-12] MEDS ORDERED: LACTULOSE 20 GM/30 ML UDCUP PO PRN (08:16)
[2017-03-12] MEDS ORDERED: BISACODYL 10 MG SUPP RECTAL PRN (08:17)
[2017-03-12] MEDS: metFORMIN 500 MG TABLET PO SCH ×2 (08:47→22:43)
[2017-03-12] MEDS: INSULIN LISPRO 100 UNIT/ML SUBCUT SCH ×4 (08:47→22:41)
[2017-03-12] MEDS: GLIMEPIRIDE 2 MG TABLET PO SCH ×2 (08:47→22:43)
[2017-03-12] MEDS: POLYETHYLENE GLYCOL POWDER 17 GM PACK PO PRN (09:56)
[2017-03-12] MEDS: CYANOCOBALAMIN 500 MCG TABLET PO SCH (09:56)
[2017-03-12] MEDS: DILTIAZEM CD 180 MG CAPSULE PO SCH (09:56)
[2017-03-12] MEDS: DOCUSATE SODIUM 100 MG CAPSULE PO SCH ×2 (09:56→22:41)
[2017-03-12] MEDS: ESTROGENS (CONJ) 0.625 MG TABLET PO SCH (09:57)
[2017-03-12] MEDS: ASPIRIN EC 325 MG TABLET PO SCH (09:57)
[2017-03-12] MEDS: CHOLECALCIFEROL 1,000 UNIT TABLET PO SCH (09:57)
[2017-03-12] MEDS: PANTOPRAZOLE 40 MG TABLET PO SCH (09:57)
[2017-03-12] MEDS: MELOXICAM 7.5 MG TABLET PO SCH (09:57)
[2017-03-12] MEDS: MAGNESIUM CHLORIDE 64 MG TABLET PO SCH ×2 (09:57→22:42)
[2017-03-12] MEDS: CIPROFLOXACIN 500 MG TABLET PO SCH ×2 (09:57→22:43)
[2017-03-12] MEDS: OLANZapine 5 MG TABLET PO SCH ×3 (09:57→22:42)
[2017-03-12] MEDS: SOTALOL 80 MG TABLET PO SCH ×2 (09:57→22:43)
--- NOTE | 2017-03-12 12:20 | Internal Med Progress Note ---
Assessment and Plan (1) Atrial fibrillation Status: Acute Assessment and plan: 81-year-old female admitted to acute care * Atrial fibrillation with rapid ventricular rate. Patient converted to sinus rhythm yesterday. Doing fairly well * UTI. Patient will be continued on Cipro. * Patient is running low-grade fever. Will repeat blood cultures along with urinalysis. Clinically she is doing fairly well * Diabetes. Patient will be continued on metformin and glimepiride * Alzheimer's dementia. Patient will continue on olanzapine. * Constipation. Will give her MiraLAX as needed. * Discussed with her daughter Current Visit: No (2) Urinary tract infection Status: Acute Current Visit: Yes (3) Hypertension Status: Chronic Current Visit: No (4) Type 2 diabetes mellitus Status: Chronic Current Visit: No Internal Medicine - PN: Subj Interval history: She is feeling better this morning. Still has no bowel movement Exam (Progress Note) - Constitutional Vitals: Period Temp Pulse Resp BP Sys/Sykes Pulse Ox Last 24 Hr 99.2 F-100.4 F 101-114 14-20 95-159/57-93 92-100 Exam: Examination: GENERAL: NAD. NECK: Neck is supple. CVS: Rhythm is regular. S1 and S2 are normal RESPIRATORY: Lungs are clear. No rales or rhonchi. ABDOMEN: Soft and nontender. EXT: No edema. RETAIL SERVICES PROFESSIONAL: Patient is awake and alert with decreased confusion SKIN: Warm and dry. Results - Labs CBC & BMP: 03/11/17 04:19 03/11/17 04:19 Lab Results: I have reviewed the past 24 hour labs
--- NOTE | 2017-03-12 18:35 | Cardiology Progress Note ---
Assessment and Plan (1) Paroxysmal atrial fibrillation Status: Chronic Assessment and plan: 81-year-old female, with sick sinus, paroxysmal atrial fibrillation, dual- chamber pacemaker implantation, paroxysmal atrial fibrillation, dementia, h/o CVA, T2DM. She was admitted with A. fib/RVR, UTI, dehydration, hypomagnesemia, malaise and chest pain. Symptoms improved with electrolyte and fluid repletion, antibiotics. -Continue magnesium supplements. -Keep the sotalol at 80 mg twice daily. GFR 50-60. -Cont Cardizem CD. May increase if AF/RVR recurs and BP allows -CHADSVASC 7. She could not tolerate even Aggrenox in the past, due to very frail skin. She is not a candidate for anticoagulation or VASYL closure. Continue aspirin. -Normal DDD PM function -CP. Had negative CAD eval in the past. RVR may have contributed. Will pursue medical management for now. -She will need to resume FU with cardiology. Set up FU with dr. Gonzalez. From a cardiac perspective, OK to d/c to rehab Current Visit: Yes (2) Urinary tract infection Status: Acute Current Visit: Yes (3) S/P placement of cardiac pacemaker Status: Chronic Current Visit: Yes (4) Hypertension Status: Chronic Current Visit: No Cardiology - PN: Subj Interval history: She had elevated temperature, otherwise is feeling fine. Heart rate trend is much better. Atrial paced rhythm, PACs. Exam (Progress Note) - Constitutional Vitals: Period Temp Pulse Resp BP Sys/Sykes Pulse Ox Last 24 Hr 96.2 F-100.4 F 66-112 14-20 118-159/63-93 93-100 General appearance: normal weight, no acute distress - Head Head exam: Present: normal inspection, normocephalic - Eye Eye exam: Absent: conjunctival injection Pupils: Absent: dilated - ENT ENT exam: Present: normal external ear exam - Neck Neck exam: Present: normal inspection - Respiratory Respiratory exam: Present: clear to auscultation bilaterally - Cardiovascular Cardiovascular exam: Present: irregular rhythm, systolic murmur, tachycardia - GI/Abdominal GI/Abdominal exam: Present: normal bowel sounds - Extremities Exam Extremities exam: Present: normal inspection, normal capillary refill. Absent: edema - Neurological Exam Neurological exam: Present: alert - Psychiatric Psychiatric exam: Present: normal affect, normal mood - Skin Skin exam: Present: normal color, warm. Absent: cyanosis Result/EKG - Labs CBC & BMP: 03/11/17 04:19 03/11/17 04:19 Lab Results: I have reviewed the past 24 hour labs Labs: Laboratory Results - last 24 hr 03/11/17 03/12/17 03/12/17 20:58 07:36 11:23 POC Glucose 218 H 103 251 H 03/12/17 16:56 POC Glucose 187 H - EKG EKG results: interpreted by me
[2017-03-12 21:07] LABS: Apearance,Urine CLOUDY (Clear); Bacteria,Urine Moderate /HPF (Few); Bilirubin,Urine Negative (Negative); Blood, Urine Negative (Negative); Glucose,Urine (UA) Negative (Negative); Ketones,Urine Negative (Negative); Nitrite,Urine Negative (Negative); Protein,Urine Negative; RBC,Urine 14 /HPF (0-4); Squamous Epithelial Cell,Urine Many /HPF (0-10); Transitional Epi Cells,Urine Few /HPF (<1); Urine Color Yellow (Yellow); Urine Specific Gravity 1.013 (1.001-1.035); Urine Urobilinogen < 2.0 EU/DL (0.2-1.0); WBC,Urine 229 /HPF (0-6)
[2017-03-12] MEDS: clonazePAM 0.5 MG TABLET PO SCH (22:42)
[2017-03-12] MEDS: GABAPENTIN 300 MG CAPSULE PO SCH (22:42)
[2017-03-12] MEDS: SERTRALINE 100 MG TABLET PO SCH (22:43)
[2017-03-13 06:23] LABS: Basophils % 0.6 % (0.0-0.8); Eosinophils # 0.2 10*3/uL (0.0-0.87); Eosinophils % 2.2 % (0.00-10.9); Hematocrit 34.6 VOL% (35.7-47.0); Hemoglobin 11.4 GM/DL (12.0-16.0); Immature Granulocytes % 0.3 %; Immature Granulocytes Absolute 0.02 #; Lymphocytes % 14.7 % (21.3-54.2); Mean Corpuscular HGB Conc 32.9 GM/DL (32-36); Mean Corpuscular Hemoglobin 31 PG (27-34); Mean Corpuscular Volume 92.8 FL (87-102); Mean Platelet Volume 10.8 FL (9.6-12.0); Monocytes # 0.6 10*3/uL (0.11-0.8); Monocytes % 8.7 % (1.7-12.7); Neutrophils # 5.1 10*3/uL (1.4-7.4); Neutrophils % 73.5 % (38.7-73.9); Platelet Count 284 T/CUMM (130-400); Red Blood Count 3.73 MC/CUMM (3.8-5.5); Red Cell Distribution Width 12.8 % (9.3-17.3); White Blood Count 6.9 T/CUMM (4-12)
[2017-03-13 06:45] LABS: Eosinophils 3 % (0-10); Hypochromasia Slight; Lymphocytes 16 % (20-55); Platelet Estimate Adequate; Segmented Neutrophils 68 % (50-85); Total Cells Counted 100
[2017-03-13 06:52] LABS: Calcium 8.9 MG/DL (8.5-10.1); Potassium 4.3 MMOL/L (3.5-5.1)
--- NOTE | 2017-03-13 08:25 | XRay Report ---
XR chest 2V Date: 03/13/2017 4:00 AM History: Fever Comparison: 03/08/2017 Technique: PA and lateral chest Findings: The heart is normal in size with stable left subclavian atrioventricular pacemaker. Calcified granulomata/nodes with chronic scarring. Infiltration in the right middle lobe with associated atelectasis and small right pleural effusion. Degenerative changes are noted with prior cholecystectomy. Impression: Right middle lobe pneumonia with associated atelectasis and small right pleural effusion. Left subclavian atrioventricular permanent pacemaker. PROCEDURE INTERPRETED AT [facility] DEPARTMENT OF RADIOLOGY Final Report Signed by: Dr. Jyoti Alfonso
--- NOTE | 2017-03-13 08:40 | Internal Med Progress Note ---
Assessment and Plan (1) Atrial fibrillation Status: Acute Assessment and plan: 81-year-old female admitted to acute care * Atrial fibrillation with rapid ventricular rate. Patient converted to sinus rhythm yesterday. Doing fairly well * Low-grade fever for several days. Repeat urinalysis shows numerous WBCs and large leukocytes. Her chest x-ray shows possible right middle lobe pneumonia. I am concerned about aspiration. Will check bedside swallowing evaluation. Will change her antibiotics to IV Levaquin and clindamycin pending cultures. Blood cultures are negative so far * Diabetes. Patient will be continued on metformin and glimepiride * Alzheimer's dementia. Patient will continue on olanzapine. * Constipation. Resolved * Discussed with her daughter and son Current Visit: No (2) Urinary tract infection Status: Acute Current Visit: Yes (3) Hypertension Status: Chronic Current Visit: No (4) Type 2 diabetes mellitus Status: Chronic Current Visit: No Internal Medicine - PN: Subj Interval history: She is feeling okay this morning. She has had several bowel movements yesterday. Her daughter has noticed that she coughs sometimes after eating. Exam (Progress Note) - Constitutional Vitals: Period Temp Pulse Resp BP Sys/Sykes Pulse Ox Last 24 Hr 96.2 F-99.4 F 66-117 12-20 103-130/60-77 92-97 Exam: Examination: GENERAL: NAD. NECK: Neck is supple. CVS: Rhythm is regular. S1 and S2 are normal RESPIRATORY: Lungs are clear. Few rhonchi right middle lung ABDOMEN: Soft and nontender. EXT: No edema. 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 Results - Labs CBC & BMP: 03/13/17 05:47 03/13/17 05:47 Lab Results: I have reviewed the past 24 hour labs
[2017-03-13] MEDS: OLANZapine 5 MG TABLET PO SCH ×3 (09:11→22:14)
[2017-03-13] MEDS: INSULIN LISPRO 100 UNIT/ML SUBCUT SCH ×4 (09:11→22:13)
[2017-03-13] MEDS: CYANOCOBALAMIN 500 MCG TABLET PO SCH (09:11)
[2017-03-13] MEDS: MELOXICAM 7.5 MG TABLET PO SCH (09:11)
[2017-03-13] MEDS: DOCUSATE SODIUM 100 MG CAPSULE PO SCH ×2 (09:11→22:15)
[2017-03-13] MEDS: ASPIRIN EC 325 MG TABLET PO SCH (09:11)
[2017-03-13] MEDS: DILTIAZEM CD 180 MG CAPSULE PO SCH (09:12)
[2017-03-13] MEDS: metFORMIN 500 MG TABLET PO SCH ×2 (09:12→22:15)
[2017-03-13] MEDS: MAGNESIUM CHLORIDE 64 MG TABLET PO SCH ×2 (09:12→22:15)
[2017-03-13] MEDS: SOTALOL 80 MG TABLET PO SCH ×2 (09:12→22:14)
[2017-03-13] MEDS: CHOLECALCIFEROL 1,000 UNIT TABLET PO SCH (09:12)
[2017-03-13] MEDS: PANTOPRAZOLE 40 MG TABLET PO SCH (09:12)
[2017-03-13] MEDS: GLIMEPIRIDE 2 MG TABLET PO SCH ×2 (09:13→22:14)
[2017-03-13] MEDS: ESTROGENS (CONJ) 0.625 MG TABLET PO SCH (09:15)
[2017-03-13] MEDS: LEVOFLOXACIN INJ 500 MG in PREMIX 1 EACH IV SCH (10:39)
[2017-03-13] MEDS: CLINDAMYCIN INJ 300 MG in PREMIX 1 EACH IV SCH ×2 (11:14→16:18)
--- NOTE | 2017-03-13 17:20 | Cardiology Progress Note ---
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 WHITMORE, will need F/U with DR. HANDLEY PCP: DR. WAGNER Ms. Rice is a 81 year old female who was admitted to the hospital yesterday with weakness, atrial fibrillation, and shortness of breath. She has a history of paroxysmal atrial fibrillation, tachybradycardia syndrome status post dual-chamber pacemaker, chronic long-term dementia related to Alzheimer's, hypertension, type 2 diabetes, peripheral neuropathy. Ms. Rice was admitted with A. fib/RVR, UTI, dehydration, hypomagnesemia, malaise and chest pain. Symptoms improved with electrolyte and fluid repletion, antibiotics. We continued her Sotalol at 80mg PO BID and started her on Cardizem CD 120mg po daily. She has a CHADSVASC 7. Previously, she could not tolerate even Aggrenox due to very frail skin. She is not a candidate for anticoagulation or VASYL closure. We will continue aspirin. At rest, she still is borderline tachycardic. Her Cardizem has been increased. She has had a low grade fever. Repeat urinalysis shows numerous WBCs and large leukocytes. Chest x-ray shows possible right middle lobe pneumonia. Her antibiotics have been changed. There was concern for aspiration. Bedside swallow eval was performed followed by Modified Barium swallow. It is recommended she be on a mechanical soft diet with chopped meats, eat sitting upright at 90 degrees, take small bites and sips. ASSESSMENT/PLAN: 1. PAROXYSMAL ATRIAL FIBRILLATION - Has been in and out of sinus rhythm. Continue Sotalol at 80mg PO BID. GFR 50-60. We have increased her Cardizem to 180mg PO Daily. She did complain of some chest pain but has had a negative CAD evaluation in the past. Her RVR may have contributed to this. We will continue to pursue medical management at this time. 2. HYPERTENSION - Currently well controlled. Will continue to monitor and adjust medications as directed. 3. URINARY TRACT INFECTION - Culture revealed halvnia lindsey and is sensitive to Cipro. Family medicine is following. 4. EARLY ONSET ALZHEIMER'S - She has chronic long-term dementia and is a resident of the memory care [facility] at [facility]. 5. TYPE 2 DIABETES MELLITUS - She has been started on sliding scale insulin. Family medicine is following. 6. DEBILITY - Physical therapy and Occupational therapy are working with her. 7. 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 Handley on 12/27/13. Her pacemaker was interrogated and she has normal DDD PM function. 8. HYPOMAGNESEMIA - Continue replacement. Dr. Mackay to follow with further plan and addendum. Upon discharge, she will need follow up with Dr. Handley. Exam (Progress Note) - Constitutional Vitals: Period Temp Pulse Resp BP Sys/Sykes Pulse Ox Last 24 Hr 96.8 F-98.9 F 69-117 12-20 88-122/57-77 92-99 Exam: General appearance: Pleasant and cooperative. Normal weight, no acute distress. Memory impairment. - Head Head exam: Present: normal inspection, normocephalic, atraumatic. Absent: hematoma, laceration - Eye Eye exam: Present: EOMI. Absent: conjunctival injection, nystagmus, periorbital swelling, scleral icterus, laceration to eyelids Pupils: Present: PERRL. Absent: constricted, dilated, fixed, irregular, unequal - ENT ENT exam: Present: normal exam, normal external ear exam - Neck Neck exam: Present: normal inspection. Absent: lymphadenopathy, meningismus, tenderness, thyromegaly - Respiratory Respiratory exam: Present: clear to auscultation bilaterally. Absent: accessory muscle use, chest wall tenderness - Cardiovascular Cardiovascular exam: Present: Regular rate and rhythm. Absent: carotid bruit, gallop, JVD, rubs, murmur - GI/Abdominal GI/Abdominal exam: Present: normal bowel sounds, soft. Absent: distended, firm , guarding, hernia, mass, tenderness, rebound. - Extremities Exam Extremities exam: Present: normal inspection, normal capillary refill. Upper extremity pulses 2+. Lower extremity pulses 2+. Absent: calf tenderness, edema -Musculoskeletal Exam Musculoskeletal: Present: No Fluid Collection, No Pain, Normal Range of Motion - Back Exam Back exam: Present: normal inspection. Absent: muscle spasm, vertebral tenderness - Neurological Exam Neurological exam: Present: alert, oriented to person, grossly intact without resting or essential tremor, moderate memory impairment - Psychiatric Psychiatric exam: Present: normal affect, normal mood - Skin Skin exam: Present: normal color, warm, dry, intact. Absent: cyanosis, diaphoretic, rash, urticaria Result/EKG - Labs CBC & BMP: 03/13/17 05:47 03/13/17 05:47 Lab Results: I have reviewed the past 24 hour labs Labs: Laboratory Results - last 24 hr 03/12/17 03/12/17 03/12/17 16:56 20:40 21:00 WBC RBC Hgb Hct MCV MCH MCHC RDW Plt Count MPV Neut % (Auto) Lymph % (Auto) [place] % (Auto) Eos % (Auto) Baso % (Auto) Neut # (Auto) Lymph # (Auto) [place] # (Auto) Eos # (Auto) Baso # (Auto) Total Counted Immature Gran % Nucleated RBC % Immature Gran # Segmented Neutrophils Lymphocytes Monocytes Eosinophils Nucleated RBCs # Platelet Estimate Hypochromasia Morphology Comment Sodium Potassium Chloride Carbon Dioxide Anion Gap BUN Creatinine GFR Calculation BUN/Creatinine Ratio Glucose POC Glucose 187 H 239 H Calculated Osmolality Calcium Urine Color Yellow Urine Appearance Cloudy Urine pH 5.0 Ur Specific [place] 1.013 Urine Protein Negative Urine Glucose (UA) Negative Urine Ketones Negative Urine Blood Negative Urine Nitrate Negative Urine Bilirubin Negative Urine Urobilinogen < 2.0 H Urine Leukocytes Large H Urine RBC 14 Urine WBC 229 Ur Squamous Epith Cells Many Ur Transition Epith Cell Few Urine Bacteria Moderate Ur Culture Indicated? Results to follow 03/13/17 03/13/17 03/13/17 05:47 05:47 08:08 WBC 6.9 RBC 3.73 L Hgb 11.4 L Hct 34.6 L MCV 92.8 MCH 31 MCHC 32.9 RDW 12.8 Plt Count 284 MPV 10.8 Neut % (Auto) 73.5 Lymph % (Auto) 14.7 L [place] % (Auto) 8.7 Eos % (Auto) 2.2 Baso % (Auto) 0.6 Neut # (Auto) 5.1 Lymph # (Auto) 1.0 L [place] # (Auto) 0.6 Eos # (Auto) 0.2 Baso # (Auto) 0.0 Total Counted 100 Immature Gran % 0.3 Nucleated RBC % 0.0 Immature Gran # 0.02 Segmented Neutrophils 68 Lymphocytes 16 L Monocytes 13 Eosinophils 3 Nucleated RBCs # 0.00 Platelet Estimate Adequate Hypochromasia Slight Morphology Comment Sodium 143 Potassium 4.3 Chloride 110 H Carbon Dioxide 26 Anion Gap 11.3 BUN 14 Creatinine 0.90 GFR Calculation 51 BUN/Creatinine Ratio 15.00 Glucose 93 POC Glucose 144 H Calculated Osmolality 285.0 Calcium 8.9 Urine Color Urine Appearance Urine pH Ur Specific [place] Urine Protein Urine Glucose (UA) Urine Ketones Urine Blood Urine Nitrate Urine Bilirubin Urine Urobilinogen Urine Leukocytes Urine RBC Urine WBC Ur Squamous Epith Cells Ur Transition Epith Cell Urine Bacteria Ur Culture Indicated? 03/13/17 11:35 WBC RBC Hgb Hct MCV MCH MCHC RDW Plt Count MPV Neut % (Auto) Lymph % (Auto) [place] % (Auto) Eos % (Auto) Baso % (Auto) Neut # (Auto) Lymph # (Auto) [place] # (Auto) Eos # (Auto) Baso # (Auto) Total Counted Immature Gran % Nucleated RBC % Immature Gran # Segmented Neutrophils Lymphocytes Monocytes Eosinophils Nucleated RBCs # Platelet Estimate Hypochromasia Morphology Comment Sodium Potassium Chloride Carbon Dioxide Anion Gap BUN Creatinine GFR Calculation BUN/Creatinine Ratio Glucose POC Glucose 270 H Calculated Osmolality Calcium Urine Color Urine Appearance Urine pH Ur Specific [place] Urine Protein Urine Glucose (UA) Urine Ketones Urine Blood Urine Nitrate Urine Bilirubin Urine Urobilinogen Urine Leukocytes Urine RBC Urine WBC Ur Squamous Epith Cells Ur Transition Epith Cell Urine Bacteria Ur Culture Indicated? - EKG EKG results: interpreted by me, sinus rhythm (with occasional paroxysmal atrial fibrillation)
[2017-03-13] MEDS: clonazePAM 0.5 MG TABLET PO SCH (22:14)
[2017-03-13] MEDS: GABAPENTIN 300 MG CAPSULE PO SCH (22:15)
[2017-03-13] MEDS: SERTRALINE 100 MG TABLET PO SCH (22:15)
[2017-03-14] MEDS: CLINDAMYCIN INJ 300 MG in PREMIX 1 EACH IV SCH ×3 (01:18→17:12)
[2017-03-14 05:55] LABS: Basophils # 0.1 10*3/uL (0.0-0.2); Basophils % 0.8 % (0.0-0.8); Eosinophils # 0.2 10*3/uL (0.0-0.87); Eosinophils % 3.4 % (0.00-10.9); Hemoglobin 10.3 GM/DL (12.0-16.0); Immature Granulocytes % 0.3 %; Immature Granulocytes Absolute 0.02 #; Lymphocytes # 1.4 10*3/uL (1.4-4.0); Lymphocytes % 22.4 % (21.3-54.2); Mean Corpuscular HGB Conc 32.2 GM/DL (32-36); Mean Corpuscular Hemoglobin 30 PG (27-34); Monocytes # 0.6 10*3/uL (0.11-0.8); Monocytes % 9.7 % (1.7-12.7); Neutrophils % 63.4 % (38.7-73.9); Platelet Count 299 T/CUMM (130-400); Red Blood Count 3.48 MC/CUMM (3.8-5.5); Red Cell Distribution Width 12.9 % (9.3-17.3); White Blood Count 6.3 T/CUMM (4-12)
[2017-03-14 06:18] LABS: Magnesium 1.4 MG/DL (1.8-2.4); Osmolality,Calculated 286.8 MOS/KG (273-304); Potassium 4.3 MMOL/L (3.5-5.1)
--- NOTE | 2017-03-14 08:13 | Family Practice Progress Note ---
Family Practice - PN: Subj Interval history: Patient had uneventful night and her sitter tells me she had a good appetite last evening. Repeat chest x-ray shows right middle lobe pneumonia. She appears to be in sinus rhythm on the monitor this morning. She denies any pain or discomfort and is sleeping soundly when I entered the room. Exam (Progress Note) - Constitutional Vitals: Period Temp Pulse Resp BP Sys/Sykes Pulse Ox Last 24 Hr 97.2 F-99.1 F 94-117 16-20 88-126/57-77 93-99 Exam: Objectively well-developed white female no acute distress. She certainly has no dyspnea at rest. Cardiovascular: Heart rates regular I hear no murmurs or gallops. Respiratory: Patient has scattered rhonchi bilaterally. Abdomen: Abdomen soft and nontender to palpation. Results - Labs CBC & BMP: 03/14/17 04:53 03/14/17 04:53 Lab Results: I have reviewed the past 24 hour labs Assessment and Plan (1) Community acquired pneumonia Status: Acute Assessment and plan: 03/14/2017: Patient presently on antibiotics. Current Visit: Yes (2) Atrial fibrillation Status: Acute Assessment and plan: 03/14/2017: Patient is back in a normal sinus rhythm. Current Visit: No
[2017-03-14] MEDS: MAGNESIUM CHLORIDE 64 MG TABLET PO SCH ×2 (09:28→21:03)
[2017-03-14] MEDS: MELOXICAM 7.5 MG TABLET PO SCH (09:28)
[2017-03-14] MEDS: OLANZapine 5 MG TABLET PO SCH ×3 (09:28→21:03)
[2017-03-14] MEDS: GLIMEPIRIDE 2 MG TABLET PO SCH ×2 (09:28→21:03)
[2017-03-14] MEDS: CYANOCOBALAMIN 500 MCG TABLET PO SCH (09:28)
[2017-03-14] MEDS: ESTROGENS (CONJ) 0.625 MG TABLET PO SCH (09:28)
[2017-03-14] MEDS: CHOLECALCIFEROL 1,000 UNIT TABLET PO SCH (09:28)
[2017-03-14] MEDS: SOTALOL 80 MG TABLET PO SCH ×2 (09:28→21:02)
[2017-03-14] MEDS: DILTIAZEM CD 180 MG CAPSULE PO SCH (09:29)
[2017-03-14] MEDS: PANTOPRAZOLE 40 MG TABLET PO SCH (09:29)
[2017-03-14] MEDS: INSULIN LISPRO 100 UNIT/ML SUBCUT SCH ×4 (09:29→21:32)
[2017-03-14] MEDS: DOCUSATE SODIUM 100 MG CAPSULE PO SCH ×2 (09:29→21:03)
[2017-03-14] MEDS: metFORMIN 500 MG TABLET PO SCH ×2 (09:29→21:03)
[2017-03-14] MEDS: ASPIRIN EC 325 MG TABLET PO SCH (09:29)
[2017-03-14] MEDS: LEVOFLOXACIN INJ 500 MG in PREMIX 1 EACH IV SCH (10:00)
[2017-03-14] MEDS: GABAPENTIN 300 MG CAPSULE PO SCH (21:03)
[2017-03-14] MEDS: SERTRALINE 100 MG TABLET PO SCH (21:03)
[2017-03-14] MEDS: clonazePAM 0.5 MG TABLET PO SCH (21:38)
[2017-03-15] MEDS: CLINDAMYCIN INJ 300 MG in PREMIX 1 EACH IV SCH ×3 (01:39→16:57)
[2017-03-15 04:13] LABS: Basophils # 0.1 10*3/uL (0.0-0.2); Basophils % 0.9 % (0.0-0.8); Eosinophils # 0.2 10*3/uL (0.0-0.87); Eosinophils % 3.4 % (0.00-10.9); Hematocrit 32.2 VOL% (35.7-47.0); Hemoglobin 10.4 GM/DL (12.0-16.0); Immature Granulocytes % 0.3 %; Immature Granulocytes Absolute 0.02 #; Lymphocytes # 1.5 10*3/uL (1.4-4.0); Lymphocytes % 24.7 % (21.3-54.2); Mean Corpuscular HGB Conc 32.3 GM/DL (32-36); Mean Corpuscular Hemoglobin 30 PG (27-34); Mean Corpuscular Volume 93.1 FL (87-102); Mean Platelet Volume 10.7 FL (9.6-12.0); Monocytes # 0.6 10*3/uL (0.11-0.8); Monocytes % 10.1 % (1.7-12.7); Neutrophils # 3.6 10*3/uL (1.4-7.4); Neutrophils % 60.6 % (38.7-73.9); Platelet Count 281 T/CUMM (130-400); Red Blood Count 3.46 MC/CUMM (3.8-5.5); Red Cell Distribution Width 12.9 % (9.3-17.3); White Blood Count 5.9 T/CUMM (4-12)
[2017-03-15 04:39] LABS: Calcium 8.8 MG/DL (8.5-10.1); Magnesium 1.3 MG/DL (1.8-2.4); Osmolality,Calculated 284.1 MOS/KG (273-304); Potassium 4.4 MMOL/L (3.5-5.1)
--- NOTE | 2017-03-15 08:18 | Family Practice Progress Note ---
Family Practice - PN: Subj Interval history: Patient had a good night according to the sitter she is also had a good appetite. She has no dyspnea at rest. She is afebrile and her vital signs have been stable. I think I will repeat her chest x-ray in the morning as she is certainly clinically improved. Exam (Progress Note) - Constitutional Vitals: Period Temp Pulse Resp BP Sys/Sykes Pulse Ox Last 24 Hr 97 F-99.1 F 67-105 18-22 103-122/64-78 92-96 Exam: Objectively well-developed white female no acute distress. She certainly has no dyspnea at rest. Cardiovascular: Heart rates regular I hear no murmurs or gallops. Respiratory: Patient has scattered rhonchi bilaterally. Abdomen: Abdomen soft and nontender to palpation. Results - Labs CBC & BMP: 03/15/17 03:44 03/15/17 03:44 Lab Results: I have reviewed the past 24 hour labs Assessment and Plan (1) Community acquired pneumonia Status: Acute Assessment and plan: 03/14/2017: Patient presently on antibiotics. 03/07/2017: We will repeat chest x-ray in the a.m. Patient is clinically improved. Current Visit: Yes (2) Atrial fibrillation Status: Acute Assessment and plan: 03/14/2017: Patient is back in a normal sinus rhythm. 03/07/2000 septic: Patient is maintaining normal sinus rhythm. Current Visit: No
[2017-03-15] MEDS: INSULIN LISPRO 100 UNIT/ML SUBCUT SCH ×4 (09:26→21:22)
[2017-03-15] MEDS: PANTOPRAZOLE 40 MG TABLET PO SCH (09:26)
[2017-03-15] MEDS: CYANOCOBALAMIN 500 MCG TABLET PO SCH (09:26)
[2017-03-15] MEDS: GLIMEPIRIDE 2 MG TABLET PO SCH ×2 (09:27→21:23)
[2017-03-15] MEDS: OLANZapine 5 MG TABLET PO SCH ×3 (09:27→21:23)
[2017-03-15] MEDS: ESTROGENS (CONJ) 0.625 MG TABLET PO SCH (09:27)
[2017-03-15] MEDS: DILTIAZEM CD 180 MG CAPSULE PO SCH (09:27)
[2017-03-15] MEDS: DOCUSATE SODIUM 100 MG CAPSULE PO SCH ×2 (09:27→21:23)
[2017-03-15] MEDS: ASPIRIN EC 325 MG TABLET PO SCH (09:27)
[2017-03-15] MEDS: CHOLECALCIFEROL 1,000 UNIT TABLET PO SCH (09:27)
[2017-03-15] MEDS: MAGNESIUM CHLORIDE 64 MG TABLET PO SCH ×2 (09:28→21:23)
[2017-03-15] MEDS: SOTALOL 80 MG TABLET PO SCH ×2 (09:28→21:24)
[2017-03-15] MEDS: metFORMIN 500 MG TABLET PO SCH ×2 (09:28→21:23)
[2017-03-15] MEDS: MELOXICAM 7.5 MG TABLET PO SCH (09:28)
[2017-03-15] MEDS: LEVOFLOXACIN INJ 500 MG in PREMIX 1 EACH IV SCH (09:46)
[2017-03-15] MEDS: clonazePAM 0.5 MG TABLET PO SCH (21:24)
[2017-03-15] MEDS: SERTRALINE 100 MG TABLET PO SCH (21:24)
[2017-03-15] MEDS: GABAPENTIN 300 MG CAPSULE PO SCH (21:30)
[2017-03-16] MEDS: CLINDAMYCIN INJ 300 MG in PREMIX 1 EACH IV SCH ×3 (01:31→16:59)
[2017-03-16 06:03] LABS: Basophils % 0.7 % (0.0-0.8); Eosinophils # 0.3 10*3/uL (0.0-0.87); Eosinophils % 4.8 % (0.00-10.9); Hematocrit 36.8 VOL% (35.7-47.0); Hemoglobin 11.9 GM/DL (12.0-16.0); Immature Granulocytes % 0.4 %; Immature Granulocytes Absolute 0.02 #; Lymphocytes # 1.3 10*3/uL (1.4-4.0); Lymphocytes % 22.3 % (21.3-54.2); Mean Corpuscular HGB Conc 32.3 GM/DL (32-36); Mean Corpuscular Hemoglobin 30 PG (27-34); Mean Corpuscular Volume 91.8 FL (87-102); Mean Platelet Volume 10.8 FL (9.6-12.0); Monocytes # 0.5 10*3/uL (0.11-0.8); Monocytes % 8.6 % (1.7-12.7); Neutrophils # 3.5 10*3/uL (1.4-7.4); Neutrophils % 63.2 % (38.7-73.9); Platelet Count 330 T/CUMM (130-400); Red Blood Count 4.01 MC/CUMM (3.8-5.5); Red Cell Distribution Width 12.8 % (9.3-17.3); White Blood Count 5.6 T/CUMM (4-12)
[2017-03-16 06:37] LABS: Magnesium 2.1 MG/DL (1.8-2.4); Osmolality,Calculated 279.3 MOS/KG (273-304); Potassium 4.5 MMOL/L (3.5-5.1)
[2017-03-16] MEDS ORDERED: cloNIDine 0.1 MG TABLET PO PRN (07:13)
[2017-03-16] MEDS ORDERED: ZALEPLON 5 MG CAPSULE PO PRN (07:13)
[2017-03-16] MEDS: INSULIN LISPRO 100 UNIT/ML SUBCUT SCH ×4 (07:57→20:46)
[2017-03-16] MEDS ORDERED: SOTALOL 80 MG TABLET PO SCH (09:00)
--- NOTE | 2017-03-16 09:08 | Family Practice Progress Note ---
Family Practice - PN: Subj Interval history: Patient certainly seems to be doing much better this morning. She had good appetite yesterday according to her daughter. She is not dyspneic and not having any cough. Repeat chest x-ray this morning showed haziness in the right base but no effusion. Clinically she certainly much improved. I offered discharge to her this morning but she wanted to stay another day. Exam (Progress Note) - Constitutional Vitals: Period Temp Pulse Resp BP Sys/Sykes Pulse Ox Last 24 Hr 96.6 F-98.3 F 66-101 16-20 99-147/58-77 94-98 Exam: Objectively well-developed white female no acute distress. She certainly has no dyspnea at rest. She is much more alert this morning. Cardiovascular: Heart rates regular I hear no murmurs or gallops. Respiratory: Patient has scattered rhonchi bilaterally. Abdomen: Abdomen soft and nontender to palpation. Results - Labs CBC & BMP: 03/16/17 05:26 03/16/17 05:26 Lab Results: I have reviewed the past 24 hour labs Assessment and Plan (1) Community acquired pneumonia Status: Acute Assessment and plan: 03/14/2017: Patient presently on antibiotics. 03/15/2017: We will repeat chest x-ray in the a.m. Patient is clinically improved. 03/16/2017: Patient is clinically much improved Current Visit: Yes (2) Atrial fibrillation Status: Acute Assessment and plan: 03/14/2017: Patient is back in a normal sinus rhythm. 03/15/2017: Patient is maintaining normal sinus rhythm. 03/16/2017: Patient's in a paced rhythm Current Visit: No
[2017-03-16] MEDS: LEVOFLOXACIN INJ 500 MG in PREMIX 1 EACH IV SCH (10:11)
[2017-03-16] MEDS: LIDOCAINE 5% PATCH TRANSDERM SCH (10:12)
[2017-03-16] MEDS: GLIMEPIRIDE 2 MG TABLET PO SCH ×2 (10:14→20:45)
[2017-03-16] MEDS: ASPIRIN EC 325 MG TABLET PO SCH (10:14)
[2017-03-16] MEDS: DILTIAZEM CD 180 MG CAPSULE PO SCH (10:14)
[2017-03-16] MEDS: OLANZapine 5 MG TABLET PO SCH ×3 (10:14→20:45)
[2017-03-16] MEDS: ESTROGENS (CONJ) 0.625 MG TABLET PO SCH (10:14)
[2017-03-16] MEDS: PANTOPRAZOLE 40 MG TABLET PO SCH (10:15)
[2017-03-16] MEDS: MAGNESIUM CHLORIDE 64 MG TABLET PO SCH ×2 (10:15→20:45)
[2017-03-16] MEDS: MELOXICAM 7.5 MG TABLET PO SCH (10:15)
[2017-03-16] MEDS: CYANOCOBALAMIN 500 MCG TABLET PO SCH (10:15)
[2017-03-16] MEDS: metFORMIN 500 MG TABLET PO SCH ×2 (10:15→20:45)
[2017-03-16] MEDS: DOCUSATE SODIUM 100 MG CAPSULE PO SCH ×2 (10:15→20:45)
[2017-03-16] MEDS: SOTALOL 80 MG TABLET PO SCH ×2 (10:15→20:45)
[2017-03-16] MEDS: CHOLECALCIFEROL 1,000 UNIT TABLET PO SCH (10:15)
--- NOTE | 2017-03-16 10:30 | XRay Report ---
Portable chest Date: 03/16/2017 Clinical history: Pneumonia Comparison: 03/13/2017 Technique: Portable AP sitting chest Findings: The heart is mildly enlarged with left subclavian atrioventricular permanent pacemaker. Progressive infiltration in the right middle lobe. Calcified granulomata. Stable mediastinum and osseous structures. Impression: Progressive right middle lobe pneumonia with increased atelectasis. Possible small right pleural effusion. Left subclavian atrioventricular permanent pacemaker. PROCEDURE INTERPRETED AT [facility] DEPARTMENT OF RADIOLOGY Final Report Signed by: Dr. Jyoti Alfonso
[2017-03-16] MEDS: GABAPENTIN 300 MG CAPSULE PO SCH (20:45)
[2017-03-16] MEDS: SERTRALINE 100 MG TABLET PO SCH (20:45)
[2017-03-17] MEDS: CLINDAMYCIN INJ 300 MG in PREMIX 1 EACH IV SCH ×2 (01:30→10:09)
[2017-03-17 08:39] VITALS: BP 147/71
[2017-03-17] MEDS: INSULIN LISPRO 100 UNIT/ML SUBCUT SCH (08:39)
[2017-03-17] MEDS: ASPIRIN EC 325 MG TABLET PO SCH (08:53)
[2017-03-17] MEDS: MELOXICAM 7.5 MG TABLET PO SCH (08:53)
[2017-03-17] MEDS: SOTALOL 80 MG TABLET PO SCH (08:53)
[2017-03-17] MEDS: MAGNESIUM CHLORIDE 64 MG TABLET PO SCH (08:54)
[2017-03-17] MEDS: CYANOCOBALAMIN 500 MCG TABLET PO SCH (08:54)
[2017-03-17] MEDS: DILTIAZEM CD 180 MG CAPSULE PO SCH (08:54)
[2017-03-17] MEDS: CHOLECALCIFEROL 1,000 UNIT TABLET PO SCH (08:54)
[2017-03-17] MEDS: GLIMEPIRIDE 2 MG TABLET PO SCH (08:54)
[2017-03-17] MEDS: OLANZapine 5 MG TABLET PO SCH (08:54)
[2017-03-17] MEDS: PANTOPRAZOLE 40 MG TABLET PO SCH (08:54)
[2017-03-17] MEDS: metFORMIN 500 MG TABLET PO SCH (08:54)
[2017-03-17] MEDS: DOCUSATE SODIUM 100 MG CAPSULE PO SCH (08:54)
[2017-03-17] MEDS: ESTROGENS (CONJ) 0.625 MG TABLET PO SCH (08:55)
[2017-03-17] MEDS: LIDOCAINE 5% PATCH TRANSDERM SCH (09:02)
[2017-03-17] MEDS: LEVOFLOXACIN INJ 500 MG in PREMIX 1 EACH IV SCH (09:03)
--- NOTE | 2017-03-17 09:38 | Discharge Summary ---
Hospital Course - Hospital Course Hospital Course: Patient is 81-year-old female with history of chronic A. fib, status post pacemaker placement, severe Alzheimer dementia, diabetes, hypertension, depression who was admitted with shortness of breath and was found to be in A. fib with rapid ventricular late. Her sotalol was increased. She was seen in consultation by cardiology and was started on Cardizem CD. Patient's heart rate was better controlled. She had a urinary tract infection as outpatient which was being treated. She continued to run fever and on the chest x-ray was found to have right middle and lower lobe pneumonia. She was evaluated for aspiration pneumonia. Her antibiotics were changed to Levaquin and clindamycin. She has improved over last 4 or 5 days. Her chest x-ray is still not clear. Clinically she is better. Her blood sugars have been low at times. It is felt that she has reached maximum hospital benefit. She will be transferred back to the memory unit at [facility]. I will see her in office in 10 days with a chest x-ray. Discussed with patient's daughter. Diagnosis - Discharge Diagnosis (1) Atrial fibrillation Status: Acute (2) Urinary tract infection Status: Acute (3) Hypertension Status: Chronic (4) Type 2 diabetes mellitus Status: Chronic Discharge Plan - Discharge Data Disposition: Home Health Service Condition at Discharge: Stable Discharge Diet: advance to your usual diet Activity: resume usual activities as tolerated - Discharge Medications New Clindamycin Cap [Cleocin Cap] 300 mg PO Q8HR #14 capsule Levofloxacin Tab [Levaquin Tab] 500 mg PO DAILY #7 tablet OLANZapine TAB [ZyPREXA Tab] 5 mg PO TID tablet Diltiazem Cd Cap [Cardizem CD] 180 mg PO DAILY #30 capsule Sotalol [Betapace] 80 mg PO BID #60 tablet Continue Cholecalciferol (Vitamin D3) [Vitamin D3] 1,000 mg PO DAILY metFORMIN [Glucophage] 500 mg PO BID Cyanocobalamin (Vitamin B-12) [Vitamin B-12] 1,000 mcg PO DAILY Meloxicam [Mobic] 7.5 mg PO DAILY Estrogens(Conj) Tab [Premarin Tab] 0.625 mg PO DAILY Glimepiride [Amaryl] 2 mg PO BID Lidocaine [Lidocaine 5% Patch] 1 patch TOP DAILY Acetaminophen Tab [Tylenol Tab] 650 mg PO Q6H PRN #0 tablet PRN Reason: Pain Mild(1-3), MILLER, Temp>100.4 Gabapentin Cap/Tab [Neurontin Cap/Tab] 300 mg PO BEDTIME capsule Magnesium Chloride [Slow Mag] 64 mg PO BID tablet Sertraline [Zoloft] 100 mg PO BEDTIME tablet Zaleplon [Sonata] 5 mg PO BEDTIME PRN #15 capsule PRN Reason: Sleep cloNIDine TAB [Catapres Tab] 0.1 mg PO Q6H PRN #0 tablet PRN Reason: Hypertension clonazePAM TAB [KlonoPIN] 0.25 mg PO BEDTIME #15 tablet Aspirin EC Tab 325 mg PO DAILY #30 tablet Discontinued OLANZapine TAB [ZyPREXA Tab] 5 mg PO Q8HR Sotalol HCl [Sotalol] 80 mg PO BID Gabapentin Cap/Tab [Neurontin Cap/Tab] 200 mg PO 1600 capsule OLANZapine [Olanzapine] 2.5 mg PO AC SUPPER #30 tablet Glimepiride 2 mg PO AC SUPPER #0 - Follow Up or Referral - Forms/Instructions Additional Discharge Instructions: Appointment in office in 10 days with CBC, BMP, urinalysis and a chest x-ray PA and lateral. Call in the new and changed medications to the pharmacy Exam - Constitutional Vitals: Period Temp Pulse Resp BP Sys/Sykes Pulse Ox Last 24 Hr 96.9 F-98.6 F 75-96 16-22 115-147/61-77 95-98 Exam: Examination: GENERAL: NAD. NECK: Neck is supple. CVS: Rhythm is regular. S1 and S2 are normal RESPIRATORY: Lungs are clear. ABDOMEN: Soft and nontender. EXT: No edema. SKIN: Warm and dry. Discharge Results Labs on day of discharge: Labs from last 24 hours 03/17/17 03/16/17 03/16/17 08:09 19:23 16:05 POC Glucose 53 L 126 H 139 H 03/16/17 03/16/17 11:54 10:11 POC Glucose 211 H 171 H DS: Provider Date of admission: 03/08/17 11:55 Primary care physician: Zenobia Murry MD Attending physician on admission: Taiwo Estevez MD Consults: 03/08/17 12:14 Consult to Case Mgmt/Social Srvs [CONS] Routine Reason for Case Mgmt/Social Srvs: Discharge Planning 03/08/17 13:02 Consult to Wound Care - [place] [CONS] Routine Reason for Wound Care: Wound Care Management Consult Comment: heel decubitus 03/08/17 13:04 Consult to Physician [CONS] Routine Comment: afib ....consult Thursday03/09/2017 Consulting Provider: Cardiology - [facility] Consult to Specialist Group: Cardiology Person Notified: HERNAN Date Notified: 03/09/17 Time Notified: 08:35 03/08/17 13:25 Consult to Occupational Therapy [CONS] Routine Reason for Occupational Therapy: Evaluate and Treat Consult to Physical Therapy [CONS] Routine Reason for Physical Therapy: Evaluate and Treat Discharging clinician: Taiwo Estevez MD
== END 2017-03-17 12:16 | disposition home health service (06) | DRG 308 ==
LOC: N.TELEN 11:55
PROVIDERS: ADMIT Internal Medicine; ATTEND Internal Medicine

== ENCOUNTER 2017-06-17 12:52 | Inpatient (IN) ==
[2017-06-17] MEDS ORDERED: ONDANSETRON 4 MG/2 ML VIAL ONE (13:09)
[2017-06-17] MEDS ORDERED: LEVOFLOXACIN 500 MG TABLET PO STA (13:20)
[2017-06-17] MEDS ORDERED: SODIUM CHLORIDE 0.9% 1,000 ML IV STA (13:20)
[2017-06-17] MEDS ORDERED: ONDANSETRON 4 MG/2 ML VIAL IV STA (13:20)
[2017-06-17] MEDS ORDERED: CLINDAMYCIN INJ 600 MG in PREMIX 1 EACH IV STA (13:20)
[2017-06-17] MEDS ORDERED: methylPREDNISolone SOD SUC 125 MG/2 ML VIAL IV STA (13:20)
--- NOTE | 2017-06-17 13:24 | EKG Report ---
Stationary ECG Study [facility] ER Test Date: 06/17/2017 1:10:50 PM Pat Name: SAMINA ROMERO Department: Room: Gender: F [employer] Supervisor: : [id number] Requested by: Azam Preston Order Number: [id number] Reading MD: TENNILLE GRIGSBY Intervals [place] Rate: 120 P: 999 WI: 0 QRS: 173 QRSD: 122 T: 56 QT: 344 QTc: 415 Interpretive Statements ATRIAL FIBRILLATION WITH RAPID VENTRICULAR RESPONSE RIGHT AXIS DEVIATION ANTEROSEPTAL MYOCARDIAL INFARCTION, OF INDETERMINATE AGE Electronically Signed On 06-17-17 17:01:51 CDT by TENNILLE GRIGSBY [email or web address]
[2017-06-17] MEDS ORDERED: methylPREDNISolone SOD SUC 125 MG/2 ML VIAL ONE (13:26)
[2017-06-17] MEDS ORDERED: ALBUTEROL 2.5 MG/3 ML NEB RESP TX SCH (13:30)
--- NOTE | 2017-06-17 13:32 | Emergency Department Note ---
Irving Villalba Emily, am scribing for, and in the presence of, Azam Yung MD 13:23. Aga Villalba James D, MD, personally performed the services described in this documentation, ascribed by Rossy Villatoro in my presence, and it is both accurate and complete [id number] . Arrival - Arrival Chief Complaint: Shortness of Breath Stated Complaint: SOB/ CP ED Nursing Triage Note: PT TO ER 11 VIA EMS COMING FROM [place] WITH C/O HAVING SOB AND CHEST PAIN. EMS STATES THAT UPON ARRIVAL PT 02 SAT WAS 80% ON RA. PT WAS PLACED ON NONREBREATHER . PT STATED PAIN WAS WORSE WITH INSPIRATIONS AND PALPATION. Mode of Arrival: Stretcher Limitations: Altered Mental Status, Physical Limitation Source: Family Time Seen by Provider: 06/17/17 13:06 - History of Present Illness HPI Narrative: Pt is a 81 y/o female who was transferred from [facility] to ED by EMS with c/o SOB with chest pain that started today. Family thinks she needs to be on a soft diet and not eating foods like cornbread due to unable to swallowing well. Pt is on a nonbreather in ED and upon EMS arrival pt was 80% room air. Pt's BP was 164/115 in ED. Pt has been in [place] since August 2016. PMHx of recent pacemaker and Afib, NIDDM & IDDM. Onset (ago): hour(s) Consistency: constant Severity: moderate Severity scale (1-10): 7 Quality: fullness Allergies/Adverse Reactions: Allergies Allergy/AdvReac Type Severity Reaction Status Date / Time Penicillins Allergy Unknown/Unable Verified 06/17/17 13:11 to obtain potassium Allergy Anxiety Verified 06/17/17 13:11 penicillin V AdvReac Unknown Anxiety Verified 06/17/17 13:11 Home Medications: Home Medications Medication Instructions Recorded Confirmed Type Cholecalciferol (Vitamin D3) 1,000 mg PO DAILY 06/25/16 06/17/17 History [Vitamin D3] Cyanocobalamin (Vitamin B-12) 1,000 mcg PO DAILY 06/25/16 06/17/17 History [Vitamin B-12] Estrogens(Conj) Tab [Premarin Tab] 0.625 mg PO DAILY 06/25/16 06/17/17 History Glimepiride [Amaryl] 2 mg PO BID 06/25/16 06/17/17 History Meloxicam [Mobic] 7.5 mg PO DAILY 06/25/16 06/17/17 History metFORMIN [Glucophage] 500 mg PO BID 06/25/16 06/17/17 History Acetaminophen Tab [Tylenol Tab] 650 mg PO Q6H PRN #0 tablet 07/08/16 06/17/17 Rx Gabapentin Cap/Tab [Neurontin 300 mg PO BEDTIME capsule 07/08/16 06/17/17 Rx Cap/Tab] Magnesium Chloride [Slow Mag] 64 mg PO BID tablet 07/08/16 06/17/17 Rx Sertraline [Zoloft] 100 mg PO BEDTIME tablet 07/08/16 06/17/17 Rx Zaleplon [Sonata] 5 mg PO BEDTIME PRN #15 capsule 07/08/16 06/17/17 Rx cloNIDine TAB [Catapres Tab] 0.1 mg PO Q6H PRN #0 tablet 07/08/16 06/17/17 Rx clonazePAM TAB [KlonoPIN] 0.25 mg PO BEDTIME #15 tablet 07/08/16 06/17/17 Rx Aspirin EC Tab 325 mg PO DAILY #30 tablet 07/16/16 06/17/17 Rx Diltiazem Cd Cap [Cardizem CD] 180 mg PO DAILY #30 capsule 03/17/17 06/17/17 Rx OLANZapine TAB [ZyPREXA Tab] 5 mg PO TID tablet 03/17/17 06/17/17 Rx Sotalol [Betapace] 80 mg PO BID #60 tablet 03/17/17 06/17/17 Rx Review of System - Review of System 12 point system: reviewed and no additional remarkable complaints except as stated - Review of System Constitutional: Present: weakness. Absent: chills, fever Respiratory: Present: cough, respiratory distress Cardiovascular: Present: chest pain. Absent: syncope Gastrointestinal: Absent: abdominal pain, vomiting Musculoskeletal: Absent: arm pain Skin: Absent: rash Medical,Surgical,& Family Hx - Medical History Cardio: History of: Cardiac Dysrhythmia (A-Fib), Hypertension, Pacemaker (dual chamber) Psychological: History of: Anxiety Disorders, Behavior Problems (pt has episodes of combativeness), Depression, Psychiatric Problems Comment Only: Violent Behavior (reported hx) Neurology: History of: Dementia No history of: Brain Aneurysm, Cerebral Hemorrhage, Cerebrovascular Accident , Cerebral Palsy, Migraine, Multiple Sclerosis, Parkinson's Disease, Peripheral Neuropathy, Seizures, TIA, Vertigo, Neurologocal Cancer Endocrine: History of: Diabetes Mellitus (IDDM), Diabetes Mellitus (NIDDM), Thyroid Disorder Gastrointestinal: History of: Diverticulitis/ Diverticulosis Musculoskeletal: History of: Back/Neck Problems, Degenerative Disk Disease - Surgical History Neurologic Surgeries: Patient denies: Brain Aneurysm, Cerebral Hemorrhage HEENT Surgeries: Surgical HX of: Tonsilectomy & Adenoidectomy Abdominal Surgeries: Surgical HX of: Abdominal Surgery, Cholecystectomy Reproductive Surgeries: Surgical HX of;: Hysterectomy (complete), Tubal Ligation - Social History Smoking Status: Never smoker Frequency of Alcohol Use: None Type of Drug Use: None Exam Vital Signs: Vital Signs Temperature 98.4 F 06/17/17 12:53 Pulse Rate 90 06/17/17 13:30 Respiratory Rate 24 06/17/17 13:30 Blood Pressure 180/109 06/17/17 12:53 O2 Sat by Pulse Oximetry 98 06/17/17 13:30 GENERAL: This is a well-nourished well-developed conically ill-appearing white female in no apparent distress. VITAL SIGNS: Reviewed HEENT: Head is atraumatic and normocephalic. Pupils are equal round react to light. Extraocular movements are intact. Oropharynx is benign with moist mucous membranes. NECK: Neck is soft and supple without tenderness. There are no masses. There is no lymphadenopathy. LUNGS: Coarse breath sounds in all lung clarke. Chest rises symmetrically. There is no chest wall tenderness. CV: Heart is irregularly irregular rate and rhythm without murmurs rubs or gallops. ABDOMEN: Abdomen is soft, nontender to palpation. There are no abdominal abnormal masses palpated. There is no organomegaly. Bowel sounds are present and active. SKIN: Skin is warm and dry. No rash. EXTREMITIES: Patient has full range of motion without tenderness. There is no pedal edema. NEUROLOGIC: Awake, nonverbal. Cranial nerves II through XII are grossly intact. Motor is 5 over 5 in all extremities bilaterally. Results - Labs CBC & BMP: 06/17/17 14:06 06/17/17 14:06 Lab Results: I have reviewed the patients labs Labs: Laboratory Tests 06/17/17 14:06 WBC 12.6 H RBC 3.96 Hgb 12.0 Hct 37.1 Plt Count 254 Neut # (Auto) 8.6 H Laboratory Tests 06/17/17 14:06 Troponin I 0.171 H Laboratory Tests 06/17/17 06/17/17 06/17/17 14:06 14:06 14:06 Sodium 141 Potassium 4.5 Chloride 107 Carbon Dioxide 26 Anion Gap 12.5 BUN 22 H Creatinine 1.00 GFR Calculation 46 BUN/Creatinine Ratio 22.00 H Glucose 257 H Calculated Osmolality 292.3 Lactic Acid 2.4 H Calcium 8.2 L Magnesium 1.6 L Total Bilirubin < 0.39 AST 15 ALT 17 Alkaline Phosphatase 79 Troponin I 0.171 H B-Natriuretic Peptide 411 H Total Protein 6.3 L Albumin 2.8 L Globulin 3.5 Albumin/Globulin Ratio 0.8 L Urine Color Urine Appearance Urine pH Ur Specific Garrett Urine Protein Urine Glucose (UA) Urine Blood Urine Nitrate Urine Urobilinogen Urine RBC Urine WBC Ur Squamous Epith Cells Amorphous Crystals Urine Bacteria Urine Mucus 06/17/17 14:06 Sodium Potassium Chloride Carbon Dioxide Anion Gap BUN Creatinine GFR Calculation BUN/Creatinine Ratio Glucose Calculated Osmolality Lactic Acid Calcium Magnesium Total Bilirubin AST ALT Alkaline Phosphatase Troponin I B-Natriuretic Peptide Total Protein Albumin Globulin Albumin/Globulin Ratio Urine Color Yellow Urine Appearance Clear Urine pH 5.0 Ur Specific Garrett 1.010 Urine Protein 100 Urine Glucose (UA) 150 Urine Blood Negative Urine Nitrate Negative Urine Urobilinogen 0.2 Urine RBC 2 Urine WBC 1 Ur Squamous Epith Cells Occasional Amorphous Crystals Occasional Urine Bacteria Occasional Urine Mucus Occasional - EKG EKG results: interpreted by ERMD - Impressions EKG: Atrial flutter with rate of 118, rapid ventricular response, quality of EKG limits further interpretation. Nonspecific ST-T wave changes. - Diagnostic Findings Procedure: Chest x-ray: image reviewed by me (No infiltrates at present, no cardiomegaly, pacemaker in place with leads in place.) Disposition Clinical Impression: Aspiration pneumonia, Elevated troponin, Alzheimer's type dementia, Atrial fibrillation Case discussed with: patient, patient's family Disposition: Still a Patient Condition: Guarded Time of Disposition: 15:11
--- NOTE | 2017-06-17 13:46 | XRay Report ---
History: Shortness of breath Date: 06/17/2017 Study: Chest x-ray AP portable Comparison exam: March 16, 2017 A left subclavian multiple lead transvenous pacemaker is stable in appearance. There is mild coronary cardiomegaly. The mediastinal contours are unchanged. There is mild to moderate aortic arch calcification. The pulmonary vasculature is not engorged. Some calcified granulomata overlie the right upper lung. There is no acute pulmonary infiltrate. There is no gross pleural effusion. Osseous structures are unchanged. Impression: No evidence of acute cardiopulmonary process compared to the previous study. Mild cardiomegaly as before. Pacemaker as before PROCEDURE INTERPRETED AT [facility] DEPARTMENT OF RADIOLOGY Final Report Signed by: Dr. Suzanna Delgadillo
[2017-06-17 14:21] LABS: Basophils # 0.1 10*3/uL (0.0-0.2); Basophils % 0.4 % (0.0-0.8); Eosinophils # 0.2 10*3/uL (0.0-0.87); Eosinophils % 1.2 % (0.00-10.9); Hematocrit 37.1 VOL% (35.7-47.0); Immature Granulocytes % 0.5 %; Immature Granulocytes Absolute 0.06 #; Lymphocytes % 23.7 % (21.3-54.2); Mean Corpuscular HGB Conc 32.3 GM/DL (32-36); Mean Corpuscular Hemoglobin 30 PG (27-34); Mean Corpuscular Volume 93.7 FL (87-102); Mean Platelet Volume 10.8 FL (9.6-12.0); Monocytes # 0.7 10*3/uL (0.11-0.8); Monocytes % 5.6 % (1.7-12.7); Neutrophils # 8.6 10*3/uL (1.4-7.4); Neutrophils % 68.6 % (38.7-73.9); Platelet Count 254 T/CUMM (130-400); Red Blood Count 3.96 MC/CUMM (3.8-5.5); Red Cell Distribution Width 13.6 % (9.3-17.3); White Blood Count 12.6 T/CUMM (4-12)
[2017-06-17 14:33] LABS: PT Patient Result 10.7 SECS; Partial Thromboplastin Time 24.5 SECS (0-40)
[2017-06-17] MEDS ORDERED: CLINDAMYCIN INJ 50 ML IV ONE (14:34)
[2017-06-17 14:41] LABS: Alanine Aminotransferase 17 U/L (13-56); Albumin 2.8 G/DL (3.4-5.0); Alkaline Phosphatase 79 U/L (45-117); Aspartate Amino Transferase 15 U/L (0-37); Bilirubin,Total < 0.39 MG/DL (0.2-1.0); Blood Urea Nitrogen 22 MG/DL (7-18); Calcium 8.2 MG/DL (8.5-10.1); Glucose 257 MG/DL (74-106); Magnesium 1.6 MG/DL (1.8-2.4); Osmolality,Calculated 292.3 MOS/KG (273-304); Potassium 4.5 MMOL/L (3.5-5.1); Sodium 141 MMOL/L (136-145); Total Protein 6.3 G/DL (6.4-8.3)
[2017-06-17 14:46] LABS: Troponin I Only 0.171 NG/ML (0.00-0.045)
[2017-06-17 14:54] LABS: Amorphous Crystals,Urine Occasional /HPF (Few); Bacteria,Urine Occasional /HPF (Few); Bilirubin,Urine Negative (Negative); Blood, Urine NEGATIVE (Negative); Glucose,Urine (UA) 150 mg/dL (Negative); Ketones,Urine Negative (Negative); Mucus,Urine Occasional /LPF (Occasional); Nitrite,Urine Negative (Negative); Protein,Urine 100 MG/DL; RBC,Urine 2 /HPF (0-4); Squamous Epithelial Cell,Urine Occasional /HPF (0-10); Urine Color Yellow (Yellow); WBC,Urine 1 /HPF (0-6)
[2017-06-17 14:57] LABS: Apearance,Urine CLEAR (Clear); Urine Urobilinogen 0.2 EU/DL (0.2-1.0)
[2017-06-17] MEDS ORDERED: LEVOFLOXACIN INJ 500 MG in PREMIX 1 EACH IV STA (15:01)
[2017-06-17] MEDS ORDERED: KETOROLAC 30 MG/1 ML VIAL IV STA (15:01)
[2017-06-17] MEDS ORDERED: LEVOFLOXACIN INJ 100 ML IV ONE (15:04)
[2017-06-17] MEDS ORDERED: KETOROLAC 30 MG/1 ML VIAL ONE (15:04)
--- NOTE | 2017-06-17 16:39 | Family Practice History&Phys ---
Assessment and Plan (1) Aspiration pneumonia Status: Acute Assessment and plan: Will continue levofloxacin, clindamycin, and breathing treatments, will follow blood cultures. Will get swallow evaluation in a.m., will put on full liquid diet for now. 2. Cardiac dysrhythmia/A. fib: We will get EKG, start back her home medications , Betapace, Cardizem. We will get serial troponins, EKG, consult cardiology, continue monitoring 3. Hypertension, improving, 4. Diabetes, will add sliding scale and monitor blood glucose 5. Anxiety/insomnia, will restart her home Zoloft, Klonopin, and Sonata as needed Current Visit: Yes (2) Cardiac dysrhythmia Status: Acute Current Visit: Yes (3) Atrial fibrillation Status: Chronic Current Visit: Yes Qualifiers: Atrial fibrillation type: paroxysmal Qualified Code(s): I48.0 - Paroxysmal atrial fibrillation (4) Elevated troponin Status: Acute Current Visit: Yes (5) Hypertension Status: Chronic Current Visit: Yes (6) Alzheimer's type dementia Status: Chronic Current Visit: Yes (7) S/P placement of cardiac pacemaker Status: Chronic Current Visit: Yes (8) Type 2 diabetes mellitus Status: Chronic Current Visit: Yes (9) Anxiety Status: Chronic Current Visit: Yes (10) Debility Status: Chronic Current Visit: Yes History of Present Illness Chief complaint: shortness of breath ,chest discomfort History of present illness: Ms. Rice is a 81 year old female PCP : , pt admitted for aspiration pneumonia, tachycardia, Alzheimer's dementia, patient is DNR. Patient is in [facility] since August 2016, Has h/o DM, HTN , has pacemaker in place, anxiety, insomnia, debility ,history of A.Fib, Alzheimer's dementia, Last cardiac pacemaker check 2015 as per history Patient is a poor historian, history obtained from the nurse, ER notes, her family. Patient is mother of Dr. Mann Rice , pt is brought from [facility], to ER by EMS for shortness of breath and chest discomfort, for having discomfort swallowing possibly choking, On arrival, she was found to be 80% saturating at room air, concern of aspiration,was symptomatically treated right away in ER, her saturation improved , i was consulted to admit for further evaluation and management, On inquiring, patient mentions she is not feeling well, she feels uncomfortable overall. Could not give further detailed symptoms. In the ER she received IV bolus of fluids, methylprednisolone, Zofran, levofloxacin, clindamycin, Patient shortness of breath, chest discomfort mildly improved after treatment in the ER. Routine labs, cardiac labs were drawn, troponin noted to be 0.171, BNP not significant, blood cultures were drawn. Patient was admitted to the monitor bed for further management. Home Medications Medication Instructions Recorded Confirmed Type Cholecalciferol (Vitamin D3) 1,000 mg PO DAILY 06/25/16 06/17/17 History [Vitamin D3] Cyanocobalamin (Vitamin B-12) 1,000 mcg PO DAILY 06/25/16 06/17/17 History [Vitamin B-12] Estrogens(Conj) Tab [Premarin Tab] 0.625 mg PO DAILY 06/25/16 06/17/17 History Glimepiride [Amaryl] 2 mg PO BID 06/25/16 06/17/17 History Meloxicam [Mobic] 7.5 mg PO DAILY 06/25/16 06/17/17 History metFORMIN [Glucophage] 500 mg PO BID 06/25/16 06/17/17 History Acetaminophen Tab [Tylenol Tab] 650 mg PO Q6H PRN #0 tablet 07/08/16 06/17/17 Rx Gabapentin Cap/Tab [Neurontin 300 mg PO BEDTIME capsule 07/08/16 06/17/17 Rx Cap/Tab] Magnesium Chloride [Slow Mag] 64 mg PO BID tablet 07/08/16 06/17/17 Rx Sertraline [Zoloft] 100 mg PO BEDTIME tablet 07/08/16 06/17/17 Rx Zaleplon [Sonata] 5 mg PO BEDTIME PRN #15 capsule 07/08/16 06/17/17 Rx cloNIDine TAB [Catapres Tab] 0.1 mg PO Q6H PRN #0 tablet 07/08/16 06/17/17 Rx clonazePAM TAB [KlonoPIN] 0.25 mg PO BEDTIME #15 tablet 07/08/16 06/17/17 Rx Aspirin EC Tab 325 mg PO DAILY #30 tablet 07/16/16 06/17/17 Rx Diltiazem Cd Cap [Cardizem CD] 180 mg PO DAILY #30 capsule 03/17/17 06/17/17 Rx OLANZapine TAB [ZyPREXA Tab] 5 mg PO TID tablet 03/17/17 06/17/17 Rx Sotalol [Betapace] 80 mg PO BID #60 tablet 03/17/17 06/17/17 Rx Allergies Allergy/AdvReac Type Severity Reaction Status Date / Time Penicillins Allergy Unknown/Unable Verified 06/17/17 13:11 to obtain potassium Allergy Anxiety Verified 06/17/17 13:11 penicillin V AdvReac Unknown Anxiety Verified 06/17/17 13:11 - Constitutional Constitutional: Present: as per HPI - EENT Eyes: Present: as per HPI Ears: Present: as per HPI Nose, mouth and throat: Present: as per HPI - Cardiovascular Cardiovascular: Present: as per HPI - Respiratory Respiratory: Present: as per HPI - Gastrointestinal Gastrointestinal: Present: as per HPI - Genitourinary Genitourinary: Present: as per HPI - Musculoskeletal Musculoskeletal: Present: as per HPI - Neurological Neurological: Present: as per HPI - Psychiatric Psychiatric: Present: as per HPI - Endocrine Endocrine: Present: as per HPI - Hematologic/Lymphatic Hematologic/Lymphatic: Present: as per HPI Medical,Surgical,& Family Hx - Medical History Cardio: History of: Cardiac Dysrhythmia (A-Fib), Hypertension, Pacemaker (dual chamber) Psychological: History of: Anxiety Disorders, Behavior Problems (pt has episodes of combativeness), Depression, Psychiatric Problems Comment Only: Violent Behavior (reported hx) Neurology: History of: Dementia No history of: Brain Aneurysm, Cerebral Hemorrhage, Cerebrovascular Accident , Cerebral Palsy, Migraine, Multiple Sclerosis, Parkinson's Disease, Peripheral Neuropathy, Seizures, TIA, Vertigo, Neurologocal Cancer Endocrine: History of: Diabetes Mellitus (IDDM), Diabetes Mellitus (NIDDM), Thyroid Disorder Gastrointestinal: History of: Diverticulitis/ Diverticulosis Musculoskeletal: History of: Back/Neck Problems, Degenerative Disk Disease - Surgical History Neurologic Surgeries: Patient denies: Brain Aneurysm, Cerebral Hemorrhage HEENT Surgeries: Surgical HX of: Tonsilectomy & Adenoidectomy Abdominal Surgeries: Surgical HX of: Abdominal Surgery, Cholecystectomy Reproductive Surgeries: Surgical HX of;: Hysterectomy (complete), Tubal Ligation - Social History Smoking Status: Never smoker Frequency of Alcohol Use: None Type of Drug Use: None Exam - Constitutional Vitals: Period Temp Pulse Resp BP Sys/Sykes Pulse Ox Last 24 Hr 98.4 F-98.4 F 90-111 22-24 180-180/109-109 92-100 Exam: Examination: Patient seen and examined in the ER GENERAL: Alert, awake, follows simple commands, in mild distress, elderly female pt, mildly confused. lying in the bed,O2 NC 2 lit, is having dry cough spells on and off when examining. HEENT: Moderately decreased hearing,PERRLA. EOMI. has subconjunctival hemorrhage at left inferior palpebral conjunctiva, possibly from coughing. Mucous membranes are moist. NECK: Neck is supple. JVD+, No carotid bruit. No thyromegaly. CVS: Tachycardic, ranging from 115-130 average on monitor, regular rhythm. S1 and S2 are normal. RESPIRATORY: Mild tachypnea, clear to ausculation bilaterally? , No wheezes, rales or rhonchi. ABDOMEN: Soft and nontender. Bowel sounds are present. No hepatosplenomegaly. EXT: No edema., has healing morning to 1x1 cm ulcer at left heel, no active discharge, no erythema, no tenderness STAFF RN: Patient is awake, alert, oriented 1, Cranial nerves 2-12 grossly intact. Motor strength normal. Results - Labs CBC & BMP: 06/17/17 14:06 06/17/17 14:06 Lab Results: I have reviewed the past 24 hour labs - Diagnostic Findings Procedure: Chest x-ray: report reviewed by me
[2017-06-17] MEDS ORDERED: ONDANSETRON 4 MG/2 ML VIAL IV PRN (17:34)
[2017-06-17] MEDS ORDERED: ACETAMINOPHEN 325 MG TABLET PO PRN (17:34)
[2017-06-17] MEDS ORDERED: SODIUM CHLORIDE 0.9% 1,000 ML IV SCH (17:34)
[2017-06-17] MEDS ORDERED: SOTALOL 80 MG TABLET PO SCH (18:05)
[2017-06-17] MEDS ORDERED: DILTIAZEM 90 MG TABLET PO ONE (18:07)
--- NOTE | 2017-06-17 18:09 | EKG Report ---
Please refer to the EKG image. Final interpretation is pending.
[2017-06-17] MEDS: SODIUM CHLORIDE 0.9% 1,000 ML IV SCH (18:16)
[2017-06-17] MEDS ORDERED: DEXTROSE 50% 25 GM/50 ML SYRINGE IV PRN (18:23)
[2017-06-17] MEDS ORDERED: GLUCAGON 1 MG VIAL IM PRN (18:23)
[2017-06-17] MEDS ORDERED: ENOXAPARIN 60 MG/0.6 ML SYRINGE SUBCUT ONE (18:49)
[2017-06-17] MEDS ORDERED: DILTIAZEM 50 MG/10 ML VIAL IV ONE (18:50)
[2017-06-17] MEDS ORDERED: ZALEPLON 5 MG CAPSULE PO PRN (19:04)
[2017-06-17] MEDS: DILTIAZEM INJ 100 MG in SODIUM CHLORIDE 0.9% 100 ML IV SCH (19:16)
[2017-06-17 19:22] LABS: Troponin I Only 0.746 NG/ML (0.00-0.045)
--- NOTE | 2017-06-17 19:24 | Event Note ---
Received a call around 1804, patient is having distress, and monitor is showing ventricular tachycardia, irregular heart rate, heart rate ranging from 120s-150s , patient getting diaphoretic, Stat EKG was done, Cardizem, Betapace, p.o. 1, home medicine was advised to give stat Advised the nurse to move the patient to the ICU, for further monitoring Patient seen and examined in ICU, GENERAL: Awake, in mild acute distress , elderly female pt, lying in the bed, lui 's in place, O2 NC 2 lit CVS: Tachycardic, with heart rate of 140-150, on monitor, RESPIRATORY: Mildly tachypneic, clear to auscultation bilaterally? ABDOMEN: Soft and nontender. Bowel sounds are present. No hepatosplenomegaly. EXT: No edema. 1. started Cardizem drip titrated to effect 2. Hold Betapace for now, 3. Serial EKGs, troponins Will get cardiology consult Recheck patient around, 1914, Patient is in no acute distress, Cardizem drip going on, heart rate 95 on monitor, blood pressure, 98/75, pulse ox 97% Informed the nurse to hold Cardizem drip, and can be used as needed if heart rate increases overnight.
[2017-06-17] MEDS: ALBUTEROL 2.5 MG/3 ML NEB RESP TX SCH (20:11)
[2017-06-17] MEDS: ALBUTEROL/IPRATROPIUM 3 ML NEB RESP TX SCH (20:11)
[2017-06-17] MEDS: DOCUSATE SODIUM 100 MG CAPSULE PO SCH (20:35)
[2017-06-17] MEDS: clonazePAM 0.5 MG TABLET PO SCH (20:35)
[2017-06-17] MEDS: MAGNESIUM CHLORIDE 64 MG TABLET PO SCH (20:35)
[2017-06-17] MEDS: GABAPENTIN 300 MG CAPSULE PO SCH (20:36)
[2017-06-17] MEDS: SERTRALINE 100 MG TABLET PO SCH (20:36)
[2017-06-17] MEDS: INSULIN LISPRO 100 UNIT/ML SUBCUT SCH (20:46)
[2017-06-17 21:02] LABS: Burr Cells Few; Hypochromasia 1+; Platelet Estimate Normal; Poikilocytosis Slight
[2017-06-17 22:24] LABS: Bacteria,Urine Occasional /HPF (Few); Bilirubin,Urine Negative (Negative); Blood, Urine NEGATIVE (Negative); Glucose,Urine (UA) 500 mg/dL (Negative); Hyaline Casts,Urine 1 /LPF (0-3); Ketones,Urine 25 mg/dL (Negative); Mucus,Urine Occasional /LPF (Occasional); Nitrite,Urine Negative (Negative); Protein,Urine 30 MG/DL; RBC,Urine 14 /HPF (0-4); Squamous Epithelial Cell,Urine Occasional /HPF (0-10); Urine Color Yellow (Yellow); Urine Specific Gravity 1.015 (1.001-1.035); WBC,Urine 9 /HPF (0-6)
[2017-06-17 22:25] LABS: Apearance,Urine Clear (Clear); Urine Urobilinogen 0.2 EU/DL (0.2-1.0)
[2017-06-18 01:58] LABS: Troponin I Only 0.465 NG/ML (0.00-0.045)
--- NOTE | 2017-06-18 02:32 | EKG Report ---
Stationary ECG Study [facility] Test Date: 06/18/2017 1:20:59 AM Pat Name: SAMINA ROMERO Department: Room: 121 Gender: F Skip Load Driver: : [id number] Requested by: Alice Meredith Order Number: [id number] Reading MD: TENNILLE GRIGSBY Intervals [place] Rate: 60 P: 158 ND: 207 QRS: -75 QRSD: 204 T: 120 QT: 539 QTc: 540 Interpretive Statements ELECTRONIC VENTRICULAR PACEMAKER ATRIAL FIBERILLATION Electronically Signed On 06-19-17 15:33:05 CDT by TENNILLE GRIGSBY [email or web address]
--- NOTE | 2017-06-18 02:32 | EKG Report ---
Please refer to the EKG image. Final interpretation is pending.
[2017-06-18 06:08] LABS: Hematocrit 34.1 VOL% (35.7-47.0); Hemoglobin 11.2 GM/DL (12.0-16.0); Immature Granulocytes % 0.4 %; Immature Granulocytes Absolute 0.04 #; Lymphocytes # 0.6 10*3/uL (1.4-4.0); Lymphocytes % 7.1 % (21.3-54.2); Mean Corpuscular HGB Conc 32.8 GM/DL (32-36); Mean Corpuscular Hemoglobin 30 PG (27-34); Mean Corpuscular Volume 92.2 FL (87-102); Mean Platelet Volume 11.3 FL (9.6-12.0); Monocytes # 0.2 10*3/uL (0.11-0.8); Monocytes % 1.7 % (1.7-12.7); Neutrophils # 8.1 10*3/uL (1.4-7.4); Neutrophils % 90.8 % (38.7-73.9); Platelet Count 235 T/CUMM (130-400); Red Cell Distribution Width 13.9 % (9.3-17.3)
[2017-06-18] MEDS: ALBUTEROL/IPRATROPIUM 3 ML NEB RESP TX SCH ×3 (06:18→12:59)
[2017-06-18] MEDS: ALBUTEROL 2.5 MG/3 ML NEB RESP TX SCH ×3 (06:18→15:43)
[2017-06-18 06:36] LABS: Calcium 8.1 MG/DL (8.5-10.1); Osmolality,Calculated 293.1 MOS/KG (273-304); Potassium 4.3 MMOL/L (3.5-5.1)
[2017-06-18 06:44] LABS: Band Neutrophils 4 % (0-10); Burr Cells Slight; Giant Platelets Few; Hypochromasia 1+; Lymphocytes 11 % (20-55); Platelet Estimate Adequate; Segmented Neutrophils 84 % (50-85); Total Cells Counted 100
[2017-06-18 06:47] LABS: Free T4 (Free Thyroxine) 0.82 NG/DL (0.76-1.46); Thyroid Stimulating Hormone 0.978 uIU/ml (0.358-3.74)
[2017-06-18 07:22] LABS: Troponin I Only 0.352 NG/ML (0.00-0.045)
[2017-06-18] MEDS: SODIUM CHLORIDE 0.9% 1,000 ML IV SCH (07:54)
--- NOTE | 2017-06-18 07:54 | XRay Report ---
Exam: XR chest 1V Date: 06/18/2017 4:00 AM Comparison: 06/17/2017 Indication: Pneumonia Technique:[Portable AP sitting chest] Findings: The heart is minimally enlarged with left subclavian atrioventricular pacemaker. Chronic scarring in the lungs with progressive parenchymal findings in the right lower lung zone. Calcified granulomata/nodes with stable mediastinum and osseous structures. Impression: Progressive parenchymal findings in the right lower lung zones consistent with pneumonia. Additional underlying chronic scarring with minimal atelectasis at the left lung base. Minimal cardiomegaly with left subclavian atrioventricular permanent pacemaker. PROCEDURE INTERPRETED AT [facility] DEPARTMENT OF RADIOLOGY Final Report Signed by: Dr. Jyoti Alfonso
--- NOTE | 2017-06-18 08:36 | Cardiology Consult Note ---
Addendum entered and electronically signed by Tsering Christie NP 06/18/17 14:43 : Ms. Rice's pacemaker was interrogated and she was noted to have 6 days with more than 6 hours of AT/AF. She has previously been unable to tolerate anticoagulation; however, with this increase in atrial dysrhythmia, this may need to be readdressed. Will further discuss with Dr. Esteban and await additional recommendations regarding anticoagulation. We have given her IV digoxin and will start her on PO to see if we can get her HR<100. Original Note: Assessment and Plan - Time spent with patient Time spent with patient: Greater than 30 minutes (due to assessment, plan, and documentation) (1) Paroxysmal atrial fibrillation Status: Chronic Assessment and plan: See plan of care listed below. Current Visit: No (2) Aspiration pneumonia Status: Acute Assessment and plan: See plan of care listed below. Current Visit: Yes (3) Elevated troponin Status: Acute Assessment and plan: See plan of care listed below. Current Visit: Yes (4) Hypertension Status: Chronic Assessment and plan: See plan of care listed below. Current Visit: Yes (5) Alzheimer's type dementia Status: Chronic Assessment and plan: See plan of care listed below. Current Visit: Yes (6) Type 2 diabetes mellitus Status: Chronic Assessment and plan: See plan of care listed below. Current Visit: Yes (7) Debility Status: Chronic Assessment and plan: See plan of care listed below. Current Visit: Yes (8) S/P placement of cardiac pacemaker Status: Chronic Assessment and plan: See plan of care listed below. 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 Gonzalez (placement of PM) PCP: Dr. Estevez Ms. Rice is a 81 y/o WF who has a history of paroxysmal atrial fibrillation , tachybradycardia syndrome status post dual-chamber pacemaker, chronic long- term dementia related to Alzheimer's, hypertension, type 2 diabetes, peripheral neuropathy. Risk factors are significant for: Age, hypertension, diabetes, sedentary lifestyle. The patient is the mother of Dr. Mann Rice. She resides at [facility] in the memory care roca. The patient is being seen in the CCU. Much of the history is being obtained from the chart as Ms. Rice does have an impaired memory and there is currently no family at the bedside. Ms. Rice was transferred to our emergency room on 06/17/2017 for shortness of breath and chest discomfort via EMS. She is also having discomfort swallowing and it was thought that she may be choking. When she arrived to our facility, her oxygen saturation was 80% on room air and there was concern for possible aspiration. She was admitted to hospitalist service. She was admitted to the floor and yesterday evening her heart rates elevated to the 140s-150s. She was given a Cardizem bolus and started on Cardizem infusion and transferred to the CCU. We were consulted to see her. Upon review of her traffic monitor specialist strips, it appears as if she had an episode of atrial fibrillation with rapid ventricular response. Upon admission, she had a mildly elevated troponin of 0.171 with normal CPK and CK-MB. Following her episode of A. fib with RVR, her troponin harris to 0.746 and has trended down since. Throughout her troponin rise and fall, she has maintained a normal CPK and CK-MB. Chest x-ray this morning shows progressive parenchymal findings in the right lower lung sounds consistent with pneumonia. She was started on antibiotics yesterday. Her creatinine is 1.0, BNP 411 on admission. Potassium is 4.3 this morning and H&H is 11.2 and 34.1. Magnesium is 1.6 on admission. WE will start her on the magnesium replacement protocol. Will further discuss with Dr. Esteban and await additional recommendations. ASSESSMENT/PLAN: 1. PAROXYSMAL ATRIAL FIBRILLATION - CHADSVASC 5. She could not tolerate even aggrenox in the past due to very frail skin. She is not a candidate for anticoagulation. Continue aspirin for anticoagulation. Will continue with rate control medications for goal HR<100. Currently 100s-110s per traffic monitor specialist. 2. ASPIRATION PNEUMONIA - She has been started on IV antibiotics and breathing treatments. 3. ELEVATED TROPONIN - According to previous records by Dr. Keane, she has had a remote history of heart catheterization but it did not reveal any coronary artery disease. It's possible her mild elevation of troponins is related to demand ischemia from hypoxia or RVR with atrial fibrillation. We'll obtain an echocardiogram since I don't see where one has been done any time in the recent past. 4. HYPERTENSION - Currently well controlled. Will continue to monitor and adjust medications as directed. 5. EARLY ONSET ALZHEIMER'S - She has chronic long-term dementia and is a resident of the memory care roca at [facility]. 6. TYPE 2 DIABETES MELLITUS - She has been started on sliding scale insulin. Family medicine is following. 7. DEBILITY - Chronic. 8. 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 Gonzalez on 12/27/13. Pacemaker was interrogated during previous admission and was found to be functioning appropriately. CC: Taiwo Estevez MD - Home Medications and Allergies Home Medications: Home Medications Medication Instructions Recorded Confirmed Type Cholecalciferol (Vitamin D3) 1,000 mg PO DAILY 06/25/16 06/17/17 History [Vitamin D3] Cyanocobalamin (Vitamin B-12) 1,000 mcg PO DAILY 06/25/16 06/17/17 History [Vitamin B-12] Estrogens(Conj) Tab [Premarin Tab] 0.625 mg PO DAILY 06/25/16 06/17/17 History Glimepiride [Amaryl] 2 mg PO BID 06/25/16 06/17/17 History Meloxicam [Mobic] 7.5 mg PO DAILY 06/25/16 06/17/17 History metFORMIN [Glucophage] 500 mg PO BID 06/25/16 06/17/17 History Acetaminophen Tab [Tylenol Tab] 650 mg PO Q6H PRN #0 tablet 07/08/16 06/17/17 Rx Gabapentin Cap/Tab [Neurontin 300 mg PO BEDTIME capsule 07/08/16 06/17/17 Rx Cap/Tab] Magnesium Chloride [Slow Mag] 64 mg PO BID tablet 07/08/16 06/17/17 Rx Sertraline [Zoloft] 100 mg PO BEDTIME tablet 07/08/16 06/17/17 Rx Zaleplon [Sonata] 5 mg PO BEDTIME PRN #15 capsule 07/08/16 06/17/17 Rx cloNIDine TAB [Catapres Tab] 0.1 mg PO Q6H PRN #0 tablet 07/08/16 06/17/17 Rx clonazePAM TAB [KlonoPIN] 0.25 mg PO BEDTIME #15 tablet 07/08/16 06/17/17 Rx Aspirin EC Tab 325 mg PO DAILY #30 tablet 07/16/16 06/17/17 Rx Diltiazem Cd Cap [Cardizem CD] 180 mg PO DAILY #30 capsule 03/17/17 06/17/17 Rx OLANZapine TAB [ZyPREXA Tab] 5 mg PO TID tablet 03/17/17 06/17/17 Rx Sotalol [Betapace] 80 mg PO BID #60 tablet 03/17/17 06/17/17 Rx Allergies/Adverse Reactions: Allergies Allergy/AdvReac Type Severity Reaction Status Date / Time Penicillins Allergy Unknown/Unable Verified 06/17/17 13:11 to obtain potassium Allergy Anxiety Verified 06/17/17 13:11 penicillin V AdvReac Unknown Anxiety Verified 06/17/17 13:11 ROS unobtainable: due to dementia Medical,Surgical,& Family Hx - Medical History Cardio: History of: Cardiac Dysrhythmia (A-Fib), Hypertension, Pacemaker (dual chamber) No history of: CAD Psychological: History of: Anxiety Disorders, Behavior Problems (pt has episodes of combativeness), Depression, Psychiatric Problems Comment Only: Violent Behavior (reported hx) Neurology: History of: Dementia No history of: Brain Aneurysm, Cerebral Hemorrhage, Cerebrovascular Accident , Cerebral Palsy, Migraine, Multiple Sclerosis, Parkinson's Disease, Peripheral Neuropathy, Seizures, TIA, Vertigo, Neurologocal Cancer Endocrine: History of: Diabetes Mellitus (IDDM), Diabetes Mellitus (NIDDM), Thyroid Disorder Gastrointestinal: History of: Diverticulitis/ Diverticulosis Musculoskeletal: History of: Back/Neck Problems, Degenerative Disk Disease - Surgical History Neurologic Surgeries: Patient denies: Brain Aneurysm, Cerebral Hemorrhage HEENT Surgeries: Surgical HX of: Tonsilectomy & Adenoidectomy Abdominal Surgeries: Surgical HX of: Abdominal Surgery, Cholecystectomy Reproductive Surgeries: Surgical HX of;: Hysterectomy (complete), Tubal Ligation - Social History Smoking Status: Never smoker Frequency of Alcohol Use: None Type of Drug Use: None Marital Status: Lives With:: [facility] Physical Examination Vital Signs Temp Pulse Resp BP Pulse Ox 98.4 F 111 H 22 180/109 92 L 06/17/17 12:53 06/17/17 12:53 06/17/17 12:53 06/17/17 12:53 06/17/17 12:53 Exam: General appearance: Appears well. Pleasant and cooperative. no acute distress. Head exam: Present: normal inspection, normocephalic, atraumatic. Absent: hematoma, laceration Eye exam: Present: EOMI. Absent: conjunctival injection, nystagmus, periorbital swelling, scleral icterus, laceration to eyelids, jaundice Pupils: Present: PERRL. Absent: constricted, dilated, fixed, irregular, unequal ENT exam: Present: normal exam, normal external ear exam, mucous membranes moist. Neck exam: Present: normal inspection, midline trachea. Absent: masses, lymphadenopathy, tenderness, thyromegaly, carotid bruit Respiratory exam: Present: clear to auscultation bilaterally, diminished breath sounds to bilateral bases. Absent: accessory muscle use, chest wall tenderness , rales, rhonchi, wheezing. Cardiovascular exam: Present: regular rate and rhythm. Absent: gallop, JVD, rubs, murmur GI/Abdominal exam: Present: normal bowel sounds, soft. Absent: distended, firm , hernia, mass, tenderness. Extremities exam: Present: Normal Gait, No Clubbing, No Cyanosis, Upper Extr. Pulses 2+, Lower Extr. Pulses 2+, Trace BLE edema. Capillary refill less than 3 seconds. Musculoskeletal: Present: No Fluid Collection, No Pain, Normal Range of Motion Back exam: Present: normal inspection. Absent: muscle spasm, vertebral tenderness Neurological exam: Present: awake, alert, oriented X3, Moves all extremities well without hemiparesis or paralysis. Grossly intact without resting or essential tremor Psychiatric exam: Present: normal affect, normal mood Skin exam: Present: normal color, warm, dry, intact. Absent: cyanosis, diaphoretic, rash, urticaria Result/EKG - Labs CBC & BMP: 06/18/17 05:11 06/18/17 05:11 Lab Results: I have reviewed the past 24 hour labs Labs: Laboratory Results - last 24 hr 06/17/17 06/17/17 06/17/17 14:06 14:06 14:06 WBC 12.6 H RBC 3.96 Hgb 12.0 Hct 37.1 MCV 93.7 MCH 30 MCHC 32.3 RDW 13.6 Plt Count 254 MPV 10.8 Neut % (Auto) 68.6 Lymph % (Auto) 23.7 [place] % (Auto) 5.6 Eos % (Auto) 1.2 Baso % (Auto) 0.4 Neut # (Auto) 8.6 H Lymph # (Auto) 3.0 [place] # (Auto) 0.7 Eos # (Auto) 0.2 Baso # (Auto) 0.1 Total Counted Immature Gran % 0.5 Nucleated RBC % 0.0 Immature Gran # 0.06 Segmented Neutrophils Band Neutrophils Lymphocytes Monocytes Nucleated RBCs # 0.00 Platelet Estimate Normal Giant Platelets Immature Plt Fraction 0.0 Hypochromasia 1+ Poikilocytosis Slight [place] Cells Few INR 1.0 PT Patient/Control Mix 10.7 D-Dimer, Quantitative Circ Anticoag PTT 24.5 Sodium 141 Potassium 4.5 Chloride 107 Carbon Dioxide 26 Anion Gap 12.5 BUN 22 H Creatinine 1.00 GFR Calculation 46 BUN/Creatinine Ratio 22.00 H Glucose 257 H POC Glucose Calculated Osmolality 292.3 Lactic Acid Calcium 8.2 L Phosphorus Magnesium 1.6 L Total Bilirubin < 0.39 AST 15 ALT 17 Alkaline Phosphatase 79 Total Creatine Kinase CK-MB (CK-2) Troponin I 0.171 H B-Natriuretic Peptide Total Protein 6.3 L Albumin 2.8 L Globulin 3.5 Albumin/Globulin Ratio 0.8 L Free T4 TSH 3rd Generation Urine Color Urine Appearance Urine pH Ur Specific [place] Urine Protein Urine Glucose (UA) Urine Ketones Urine Blood Urine Nitrate Urine Bilirubin Urine Urobilinogen Urine Leukocytes Urine RBC Urine WBC Ur Squamous Epith Cells Amorphous Crystals Urine Bacteria Hyaline Casts Urine Mucus Ur Culture Indicated? 06/17/17 06/17/17 06/17/17 14:06 14:06 14:06 WBC RBC Hgb Hct MCV MCH MCHC RDW Plt Count MPV Neut % (Auto) Lymph % (Auto) [place] % (Auto) Eos % (Auto) Baso % (Auto) Neut # (Auto) Lymph # (Auto) [place] # (Auto) Eos # (Auto) Baso # (Auto) Total Counted Immature Gran % Nucleated RBC % Immature Gran # Segmented Neutrophils Band Neutrophils Lymphocytes Monocytes Nucleated RBCs # Platelet Estimate Giant Platelets Immature Plt Fraction Hypochromasia Poikilocytosis [place] Cells INR PT Patient/Control Mix D-Dimer, Quantitative Circ Anticoag PTT Sodium Potassium Chloride Carbon Dioxide Anion Gap BUN Creatinine GFR Calculation BUN/Creatinine Ratio Glucose POC Glucose Calculated Osmolality Lactic Acid 2.4 H Calcium Phosphorus Magnesium Total Bilirubin AST ALT Alkaline Phosphatase Total Creatine Kinase CK-MB (CK-2) Troponin I B-Natriuretic Peptide 411 H Total Protein Albumin Globulin Albumin/Globulin Ratio Free T4 TSH 3rd Generation Urine Color Yellow Urine Appearance Clear Urine pH 5.0 Ur Specific [place] 1.010 Urine Protein 100 Urine Glucose (UA) 150 Urine Ketones Negative Urine Blood Negative Urine Nitrate Negative Urine Bilirubin Negative Urine Urobilinogen 0.2 Urine Leukocytes Negative Urine RBC 2 Urine WBC 1 Ur Squamous Epith Cells Occasional Amorphous Crystals Occasional Urine Bacteria Occasional Hyaline Casts Urine Mucus Occasional Ur Culture Indicated? Not indicated 06/17/17 06/17/17 06/17/17 18:47 18:47 18:50 WBC RBC Hgb Hct MCV MCH MCHC RDW Plt Count MPV Neut % (Auto) Lymph % (Auto) [place] % (Auto) Eos % (Auto) Baso % (Auto) Neut # (Auto) Lymph # (Auto) [place] # (Auto) Eos # (Auto) Baso # (Auto) Total Counted Immature Gran % Nucleated RBC % Immature Gran # Segmented Neutrophils Band Neutrophils Lymphocytes Monocytes Nucleated RBCs # Platelet Estimate Giant Platelets Immature Plt Fraction Hypochromasia Poikilocytosis [place] Cells INR PT Patient/Control Mix D-Dimer, Quantitative Circ Anticoag PTT Sodium Potassium Chloride Carbon Dioxide Anion Gap BUN Creatinine GFR Calculation BUN/Creatinine Ratio Glucose POC Glucose Calculated Osmolality Lactic Acid 2.5 H Calcium Phosphorus 3.9 Magnesium Total Bilirubin AST ALT Alkaline Phosphatase Total Creatine Kinase 50 CK-MB (CK-2) 3.5 Troponin I 0.746 H D B-Natriuretic Peptide Total Protein Albumin Globulin Albumin/Globulin Ratio Free T4 TSH 3rd Generation Urine Color Urine Appearance Urine pH Ur Specific [place] Urine Protein Urine Glucose (UA) Urine Ketones Urine Blood Urine Nitrate Urine Bilirubin Urine Urobilinogen Urine Leukocytes Urine RBC Urine WBC Ur Squamous Epith Cells Amorphous Crystals Urine Bacteria Hyaline Casts Urine Mucus Ur Culture Indicated? 06/17/17 06/17/17 06/17/17 19:24 20:33 22:00 WBC RBC Hgb Hct MCV MCH MCHC RDW Plt Count MPV Neut % (Auto) Lymph % (Auto) [place] % (Auto) Eos % (Auto) Baso % (Auto) Neut # (Auto) Lymph # (Auto) [place] # (Auto) Eos # (Auto) Baso # (Auto) Total Counted Immature Gran % Nucleated RBC % Immature Gran # Segmented Neutrophils Band Neutrophils Lymphocytes Monocytes Nucleated RBCs # Platelet Estimate Giant Platelets Immature Plt Fraction Hypochromasia Poikilocytosis [place] Cells INR PT Patient/Control Mix D-Dimer, Quantitative 2.1 Circ Anticoag PTT Sodium Potassium Chloride Carbon Dioxide Anion Gap BUN Creatinine GFR Calculation BUN/Creatinine Ratio Glucose POC Glucose 387 H Calculated Osmolality Lactic Acid Calcium Phosphorus Magnesium Total Bilirubin AST ALT Alkaline Phosphatase Total Creatine Kinase CK-MB (CK-2) Troponin I B-Natriuretic Peptide Total Protein Albumin Globulin Albumin/Globulin Ratio Free T4 TSH 3rd Generation Urine Color Yellow Urine Appearance Clear Urine pH 5.0 Ur Specific [place] 1.015 Urine Protein 30 Urine Glucose (UA) 500 Urine Ketones 25 Urine Blood Negative Urine Nitrate Negative Urine Bilirubin Negative Urine Urobilinogen 0.2 Urine Leukocytes Trace Urine RBC 14 Urine WBC 9 Ur Squamous Epith Cells Occasional Amorphous Crystals Urine Bacteria Occasional Hyaline Casts 1 Urine Mucus Occasional Ur Culture Indicated? Ordered separately 06/17/17 06/18/17 06/18/17 23:40 01:10 05:11 WBC RBC Hgb Hct MCV MCH MCHC RDW Plt Count MPV Neut % (Auto) Lymph % (Auto) [place] % (Auto) Eos % (Auto) Baso % (Auto) Neut # (Auto) Lymph # (Auto) [place] # (Auto) Eos # (Auto) Baso # (Auto) Total Counted Immature Gran % Nucleated RBC % Immature Gran # Segmented Neutrophils Band Neutrophils Lymphocytes Monocytes Nucleated RBCs # Platelet Estimate Giant Platelets Immature Plt Fraction Hypochromasia Poikilocytosis [place] Cells INR PT Patient/Control Mix D-Dimer, Quantitative Circ Anticoag PTT Sodium Potassium Chloride Carbon Dioxide Anion Gap BUN Creatinine GFR Calculation BUN/Creatinine Ratio Glucose POC Glucose 334 H Calculated Osmolality Lactic Acid Calcium Phosphorus Magnesium Total Bilirubin AST ALT Alkaline Phosphatase Total Creatine Kinase 39 D CK-MB (CK-2) 3.2 Troponin I 0.465 H D B-Natriuretic Peptide Total Protein Albumin Globulin Albumin/Globulin Ratio Free T4 0.82 TSH 3rd Generation 0.978 Urine Color Urine Appearance Urine pH Ur Specific [place] Urine Protein Urine Glucose (UA) Urine Ketones Urine Blood Urine Nitrate Urine Bilirubin Urine Urobilinogen Urine Leukocytes Urine RBC Urine WBC Ur Squamous Epith Cells Amorphous Crystals Urine Bacteria Hyaline Casts Urine Mucus Ur Culture Indicated? 06/18/17 06/18/17 06/18/17 05:11 05:11 05:11 WBC 9.0 RBC 3.70 L Hgb 11.2 L Hct 34.1 L MCV 92.2 MCH 30 MCHC 32.8 RDW 13.9 Plt Count 235 MPV 11.3 Neut % (Auto) 90.8 H Lymph % (Auto) 7.1 L [place] % (Auto) 1.7 Eos % (Auto) 0.0 Baso % (Auto) 0.0 Neut # (Auto) 8.1 H Lymph # (Auto) 0.6 L [place] # (Auto) 0.2 Eos # (Auto) 0.0 Baso # (Auto) 0.0 Total Counted 100 Immature Gran % 0.4 Nucleated RBC % 0.0 Immature Gran # 0.04 Segmented Neutrophils 84 Band Neutrophils 4 Lymphocytes 11 L Monocytes 1 L Nucleated RBCs # 0.00 Platelet Estimate Adequate Giant Platelets Few Immature Plt Fraction 0.0 Hypochromasia 1+ Poikilocytosis [place] Cells Slight INR PT Patient/Control Mix D-Dimer, Quantitative Circ Anticoag PTT Sodium 142 Potassium 4.3 Chloride 111 H Carbon Dioxide 23 Anion Gap 12.3 BUN 23 H Creatinine 1.00 GFR Calculation 45 BUN/Creatinine Ratio 23.00 H Glucose 224 H POC Glucose Calculated Osmolality 293.1 Lactic Acid Calcium 8.1 L Phosphorus 1.8 L Magnesium Total Bilirubin AST ALT Alkaline Phosphatase Total Creatine Kinase CK-MB (CK-2) Troponin I B-Natriuretic Peptide Total Protein Albumin Globulin Albumin/Globulin Ratio Free T4 TSH 3rd Generation Urine Color Urine Appearance Urine pH Ur Specific [place] Urine Protein Urine Glucose (UA) Urine Ketones Urine Blood Urine Nitrate Urine Bilirubin Urine Urobilinogen Urine Leukocytes Urine RBC Urine WBC Ur Squamous Epith Cells Amorphous Crystals Urine Bacteria Hyaline Casts Urine Mucus Ur Culture Indicated? 06/18/17 06/18/17 05:11 08:09 WBC RBC Hgb Hct MCV MCH MCHC RDW Plt Count MPV Neut % (Auto) Lymph % (Auto) [place] % (Auto) Eos % (Auto) Baso % (Auto) Neut # (Auto) Lymph # (Auto) [place] # (Auto) Eos # (Auto) Baso # (Auto) Total Counted Immature Gran % Nucleated RBC % Immature Gran # Segmented Neutrophils Band Neutrophils Lymphocytes Monocytes Nucleated RBCs # Platelet Estimate Giant Platelets Immature Plt Fraction Hypochromasia Poikilocytosis [place] Cells INR PT Patient/Control Mix D-Dimer, Quantitative Circ Anticoag PTT Sodium Potassium Chloride Carbon Dioxide Anion Gap BUN Creatinine GFR Calculation BUN/Creatinine Ratio Glucose POC Glucose 216 H Calculated Osmolality Lactic Acid Calcium Phosphorus Magnesium Total Bilirubin AST ALT Alkaline Phosphatase Total Creatine Kinase 36 CK-MB (CK-2) 2.9 Troponin I 0.352 H D B-Natriuretic Peptide Total Protein Albumin Globulin Albumin/Globulin Ratio Free T4 TSH 3rd Generation Urine Color Urine Appearance Urine pH Ur Specific [place] Urine Protein Urine Glucose (UA) Urine Ketones Urine Blood Urine Nitrate Urine Bilirubin Urine Urobilinogen Urine Leukocytes Urine RBC Urine WBC Ur Squamous Epith Cells Amorphous Crystals Urine Bacteria Hyaline Casts Urine Mucus Ur Culture Indicated? - EKG EKG results: interpreted by me EKG shows: atrial fibrillation
[2017-06-18] MEDS: MAGNESIUM CHLORIDE 64 MG TABLET PO SCH ×2 (08:42→21:24)
[2017-06-18] MEDS: DOCUSATE SODIUM 100 MG CAPSULE PO SCH ×2 (08:44→21:25)
[2017-06-18] MEDS: INSULIN LISPRO 100 UNIT/ML SUBCUT SCH ×4 (08:46→21:46)
[2017-06-18] MEDS: PANTOPRAZOLE 40 MG TABLET PO SCH (08:47)
--- NOTE | 2017-06-18 08:48 | EKG Report ---
Stationary ECG Study [facility] Test Date: 06/18/2017 8:46:41 AM Pat Name: SAMINA ROMERO Department: Room: 121 Gender: F Director [employer] Database: SEYMOUR : 1935 Requested by: Alice Meredith Order Number: [id number] Reading MD: TENNILLE GRIGSBY Intervals [place] Rate: 109 P: 999 SD: 0 QRS: 251 QRSD: 117 T: 204 QT: 381 QTc: 445 Interpretive Statements ATRIAL FIBRILLATION WITH RAPID VENTRICULAR RESPONSE MARKED RIGHT AXIS DEVIATION POSSIBLE ANTERIOR MYOCARDIAL INFARCTION, OF INDETERMINATE AGE INFERIOR MYOCARDIAL INFARCTION, OF INDETERMINATE AGE Electronically Signed On 06-19-17 15:41:06 CDT by TENNILLE GRIGSBY [email or web address]
[2017-06-18] MEDS ORDERED: DIGOXIN 0.5 MG/2 ML AMP IV ONE (08:54)
[2017-06-18] MEDS ORDERED: SOTALOL 80 MG TABLET PO SCH (09:00)
--- NOTE | 2017-06-18 09:03 | Family Practice Progress Note ---
Family Practice - PN: Subj Interval history: Pcp : , pt admitted for aspiration pneumonia, cardiac dysrythmia, had vtach , afib episodes, yesterday, had cardizem drip breifly yesterday shayla, h/o HTN , DM, debility, alzheimer's dementia, anxiety, insomnia, pt seen and examined, is poor historian , looking better than yesterday, mentions feeling a bit better than yesterday, just feeling sore over back , no fever, nausea , vomiting , no chest pain or SOB , no cough, no overnight events reported by the nurse, Exam (Progress Note) - Constitutional Vitals: Period Temp Pulse Resp BP Sys/Sykes Pulse Ox Last 24 Hr 96.6 F-98.4 F 59-155 17-28 80-180/53-109 92-100 Exam: Examination: Patient seen and examined in the ICU GENERAL: Alert, awake, follows simple commands, in no acute distress, elderly female pt, mildly confused. lying in the bed,O2 NC 2 lit, HEENT: Moderately decreased hearing,PERRLA. EOMI. has subconjunctival hemorrhage at left inferior bulbar conjunctiva, at 5-6 O clock position , improving, Mucous membranes are moist. NECK: Neck is supple. JVD+,No carotid bruit. No thyromegaly. CVS: Tachycardic, ranging from 100-115 average on monitor, regular rhythm. S1 and S2 are normal. RESPIRATORY: clear to ausculation bilaterally except basal crackles rt>lt, No wheezes, rales or rhonchi. ABDOMEN: Soft and nontender. Bowel sounds are present. No hepatosplenomegaly. EXT: No edema.,her fingers seem mildly swollen than yesterday, has healing morning to 1x1 cm ulcer at left heel, no active discharge, no erythema, no tenderness GROUND EQUIPMENT MECHANIC: Patient is awake, alert, oriented 1, Cranial nerves 2-12 grossly intact. Motor strength normal. Results - Labs CBC & BMP: 06/18/17 05:11 06/18/17 05:11 Lab Results: I have reviewed the past 24 hour labs - Diagnostic Findings Procedure: Chest x-ray: report reviewed by me Assessment and Plan (1) Aspiration pneumonia Status: Acute Assessment and plan: Will continue levofloxacin, clindamycin, day 2 today ,and breathing treatments, will follow blood cultures. will follow recommendations for diet as per speech therapist, decrease IVF , betapace discontinued, held cardizem drip, only on oral cardizem po, 2. Cardiac dysrhythmia/A. fib: follow cardiology recommendations, pacemaker evaluation today, 3. Hypertension, improving, 4. Diabetes, sliding scale and monitor blood glucose 5. Anxiety/insomnia, will restart her home Zoloft, Klonopin, and Sonata as needed Current Visit: Yes (2) Cardiac dysrhythmia Status: Acute Current Visit: Yes (3) Atrial fibrillation Status: Chronic Current Visit: Yes Qualifiers: Atrial fibrillation type: paroxysmal Qualified Code(s): I48.0 - Paroxysmal atrial fibrillation (4) Elevated troponin Status: Acute Current Visit: Yes (5) Hypertension Status: Chronic Current Visit: Yes (6) Alzheimer's type dementia Status: Chronic Current Visit: Yes (7) S/P placement of cardiac pacemaker Status: Chronic Current Visit: Yes (8) Type 2 diabetes mellitus Status: Chronic Current Visit: Yes (9) Anxiety Status: Chronic Current Visit: Yes (10) Debility Status: Chronic Current Visit: Yes
[2017-06-18] MEDS ORDERED: MAGNESIUM SULF RIDER 4 GM in PREMIX 1 EACH IV PRN (09:11)
[2017-06-18] MEDS: CHOLECALCIFEROL 1,000 UNIT TABLET PO SCH (09:55)
[2017-06-18] MEDS: ASCORBIC ACID 500 MG TABLET PO SCH ×2 (09:55→21:25)
[2017-06-18] MEDS: CYANOCOBALAMIN 500 MCG TABLET PO SCH (09:55)
[2017-06-18] MEDS: METOPROLOL TARTRATE 25 MG TABLET PO SCH ×2 (09:55→21:29)
[2017-06-18] MEDS: NEOMYCIN/POLYMYXIN/BACITRACIN OINT 0.9 GM PACK TOP SCH (09:56)
[2017-06-18] MEDS: ASPIRIN EC 325 MG TABLET PO SCH (09:56)
[2017-06-18] MEDS: CLINDAMYCIN 300 MG CAPSULE PO SCH ×2 (10:10→21:43)
[2017-06-18] MEDS: MAGNESIUM SULF RIDER 2 GM in PREMIX 1 EACH IV PRN (12:39)
[2017-06-18] MEDS ORDERED: SODIUM PHOSPHATE INJ 15 MMOL in SODIUM CHLORIDE 0.9% 250 ML IV ONE (15:00)
[2017-06-18] MEDS ORDERED: ALBUTEROL/IPRATROPIUM 3 ML NEB RESP TX SCH (15:00)
[2017-06-18] MEDS: DIGOXIN 0.125 MG TABLET PO SCH (16:16)
[2017-06-18] MEDS: LEVOFLOXACIN 500 MG TABLET PO SCH (16:16)
--- NOTE | 2017-06-18 17:42 | ECHO Report ---
Sacha Rice Exam Date: 06/18/2017 10:39 Referring Physician: Technologist: Jada Zuñiga Age: 81 Ht (in): 61 Wt (lb): 117 Gender: F Exam Location: [facility] Echo Indications: A fib, elevated troponin, HTN, DM, dementia, debility, s/p pacemaker, SOB BP: 104 / 78 HR: 109 Rhythm: Atrial fibrillation Technical Quality: IMPRESSIONS Left ventricular ejection fraction is estimated at 45- 50% with apical hypokinesis. Mild concentric left ventricular hypertrophy. Mild bilateral atrial enlargement. Mildly thickened mitral valve with mild mitral regurgitation. Mild aortic valve sclerosis without stenosis. Trace aortic valve regurgitation. Mild tricuspid valve regurgitation. MEASUREMENTS (Male / Female) Normal Values 2D ECHO LV Diastolic Diameter PLAX 2.9 cm 4.2 - 5.9 / 3.9 - 5.3 cm LV Systolic Diameter PLAX 2.2 cm LV Fractional Shortening PLAX 24.7 % IVS Diastolic Thickness 1.3 cm 0.6 - 1.0 / 0.6 - 0.9 cm LVPW Diastolic Thickness 1.2 cm 0.6 - 1.0 / 0.6 - 0.9 cm Aortic Root Diameter 2.6 cm LA Systolic Diameter LX 3.5 cm 3.0 - 4.0 / 2.7 - 3.8 cm DOPPLER TR Peak Velocity 270.0 cm/s TR Peak Gradient 29.2 mmHg FINDINGS Left Ventricle Normal left ventricular cavity size. Mild concentric left ventricular hypertrophy. Left ventricular ejection fraction is estimated at 45- 50% with apical hypokinesis. Right Ventricle Normal right ventricular size. Right Atrium The right atrium is mildly enlarged. Left Atrium The left atrium is mildly enlarged. Mitral Valve Mildly thickened mitral valve with mild mitral regurgitation. Aortic Valve Mild aortic valve sclerosis without stenosis. Trace aortic valve regurgitation. Tricuspid Valve Morphologically normal tricuspid valve. Mild tricuspid valve regurgitation. Tricuspid regurgitation velocities suggest a PAP of 29.2 mmHg + RAP. Pulmonic Valve Pulmonic valve not well visualized. Trace pulmonary valve regurgitation. Pericardium No pericardial effusion. Aorta Normal size aortic root and proximal ascending aorta. Tobi Esteban (Electronically Signed) Final Date: 18 June 2017 17:40
[2017-06-18] MEDS ORDERED: DILTIAZEM 50 MG/10 ML VIAL IV ONE ×2 (18:49→18:56)
[2017-06-18] MEDS: DILTIAZEM INJ 100 MG in SODIUM CHLORIDE 0.9% 100 ML IV SCH (19:09)
[2017-06-18] MEDS: clonazePAM 0.5 MG TABLET PO SCH (21:25)
[2017-06-18] MEDS: GABAPENTIN 300 MG CAPSULE PO SCH (21:25)
[2017-06-18] MEDS: APIXABAN 2.5 MG TABLET PO SCH (21:25)
[2017-06-18] MEDS: SERTRALINE 100 MG TABLET PO SCH (21:25)
[2017-06-19 05:26] LABS: Basophils % 0.1 % (0.0-0.8); Eosinophils % 0.1 % (0.00-10.9); Hematocrit 34.3 VOL% (35.7-47.0); Hemoglobin 11.2 GM/DL (12.0-16.0); Immature Granulocytes % 0.6 %; Immature Granulocytes Absolute 0.07 #; Lymphocytes # 1.1 10*3/uL (1.4-4.0); Lymphocytes % 9.1 % (21.3-54.2); Mean Corpuscular HGB Conc 32.7 GM/DL (32-36); Mean Corpuscular Hemoglobin 31 PG (27-34); Mean Platelet Volume 10.6 FL (9.6-12.0); Monocytes # 0.7 10*3/uL (0.11-0.8); Monocytes % 5.6 % (1.7-12.7); Neutrophils # 10.2 10*3/uL (1.4-7.4); Neutrophils % 84.5 % (38.7-73.9); Platelet Count 217 T/CUMM (130-400); Red Blood Count 3.65 MC/CUMM (3.8-5.5); Red Cell Distribution Width 14.3 % (9.3-17.3)
[2017-06-19 06:10] LABS: Band Neutrophils 1 % (0-10); Burr Cells Slight; Eosinophils 1 % (0-10); Giant Platelets Few; Hypochromasia 1+; Lymphocytes 8 % (20-55); Platelet Estimate Adequate; Segmented Neutrophils 84 % (50-85); Total Cells Counted 100
--- NOTE | 2017-06-19 06:18 | Family Practice Progress Note ---
Family Practice - PN: Subj Interval history: Pcp : , consultants on case : Loading Manager pt admitted for aspiration pneumonia, cardiac dysrythmia, had heart rate increased, afib, yesterday, repeated cardizem drip yesterday shayla, on metoprol and cardizem , h/o HTN , DM, debility, alzheimer's dementia, anxiety, insomnia, pt seen and examined, is poor historian , in no acute distress, lying in bed,is hard of hearing, pt mentions no fever, nausea , vomiting , no chest pain or SOB , no cough, nurse mentions sometimes pt getting anxious ,continued on anxiolytics Exam (Progress Note) - Constitutional Vitals: Period Temp Pulse Resp BP Sys/Sykes Pulse Ox Last 24 Hr 97.7 F-98.2 F 66-155 14-37 82-133/49-88 96-100 Exam: Examination: Patient seen and examined in the ICU GENERAL: Alert, awake, in no acute distress, elderly female lying in the bed,O2 NC 2 lit, HEENT: Moderately decreased hearing,PERRLA. EOMI. left subconjunctival hemorrhage resolved, Mucous membranes are moist. NECK: Neck is supple. No thyromegaly. CVS: ranging from 87-98 average on monitor, irregular rhythm. RESPIRATORY: clear to ausculation bilaterally except basal crackles rt>lt, No wheezes, rales or rhonchi. ABDOMEN: Soft and nontender. Bowel sounds are present. No hepatosplenomegaly. EXT: No edema., GLUE MOUNTER OPERATOR: Patient is awake, alert, oriented 1, Cranial nerves 2-12 grossly intact. Motor strength normal. Results - Labs CBC & BMP: 06/19/17 05:08 06/19/17 05:07 Lab Results: I have reviewed the past 24 hour labs - EKG EKG shows: atrial fibrillation - Diagnostic Findings Procedure: Chest x-ray: report reviewed by me, image reviewed by me Assessment and Plan (1) Aspiration pneumonia Status: Acute Assessment and plan: Will continue levofloxacin, clindamycin, day 3 today ,blood Cx negative so far, 2. Cardiac dysrhythmia/A. fib:Will get EKG this AM , troponin repeat this AM, on lopressor, cardizem , digoxin added yesterday, follow cardiology recommendations, Mg mildly high, will hold off her Mg meds, 3. Hypertension, stable 4. Diabetes, sliding scale and monitor blood glucose 5. Anxiety/insomnia, will continue her home Zoloft, Klonopin, and Sonata as needed Current Visit: Yes (2) Cardiac dysrhythmia Status: Acute Current Visit: Yes (3) Atrial fibrillation Status: Chronic Current Visit: Yes Qualifiers: Atrial fibrillation type: paroxysmal Qualified Code(s): I48.0 - Paroxysmal atrial fibrillation (4) Elevated troponin Status: Acute Current Visit: Yes (5) Hypertension Status: Chronic Current Visit: Yes (6) Alzheimer's type dementia Status: Chronic Current Visit: Yes (7) S/P placement of cardiac pacemaker Status: Chronic Current Visit: Yes (8) Type 2 diabetes mellitus Status: Chronic Current Visit: Yes (9) Anxiety Status: Chronic Current Visit: Yes (10) Debility Status: Chronic Current Visit: Yes
[2017-06-19 06:28] LABS: Calcium 8.2 MG/DL (8.5-10.1); Magnesium 2.6 MG/DL (1.8-2.4); Osmolality,Calculated 288.7 MOS/KG (273-304); Phosphorous 2.3 MG/DL (2.5-4.9); Potassium 4.3 MMOL/L (3.5-5.1)
--- NOTE | 2017-06-19 06:28 | EKG Report ---
Stationary ECG Study [facility] Test Date: 06/19/2017 6:23:57 AM Pat Name: SAMINA ROMERO Department: Room: 121 Gender: F User Support Analyst Supervisor: SEYMOUR : 1935 Requested by: Caro Britton Order Number: [id number] Reading MD: TENNILLE GRIGSBY Intervals [place] Rate: 86 P: 999 NC: 0 QRS: 137 QRSD: 122 T: 180 QT: 460 QTc: 503 Interpretive Statements ATRIAL FIBRILLATION RIGHT BUNDLE BRANCH BLOCK LEFT POSTERIOR FASCICULAR BLOCK MARKED T-WAVE ABNORMALITY Electronically Signed On 06-19-17 15:54:54 CDT by TENNILLE GRIGSBY [email or web address]
[2017-06-19] MEDS ORDERED: METOPROLOL TARTRATE 25 MG TABLET PO ONE (06:30)
[2017-06-19 06:40] LABS: Troponin I Only 0.148 NG/ML (0.00-0.045)
[2017-06-19] MEDS: INSULIN LISPRO 100 UNIT/ML SUBCUT SCH ×4 (08:26→21:26)
--- NOTE | 2017-06-19 08:26 | Cardiology Progress Note ---
Assessment and Plan - Time spent with patient Time spent with patient: Less than 30 minutes (1) Paroxysmal atrial fibrillation Status: Chronic Assessment and plan: See plan of care listed below. Current Visit: No (2) Aspiration pneumonia Status: Acute Assessment and plan: See plan of care listed below. Current Visit: Yes (3) Elevated troponin Status: Acute Assessment and plan: See plan of care listed below. Current Visit: Yes (4) Hypertension Status: Chronic Assessment and plan: See plan of care listed below. Current Visit: Yes (5) Alzheimer's type dementia Status: Chronic Assessment and plan: See plan of care listed below. Current Visit: Yes (6) Type 2 diabetes mellitus Status: Chronic Assessment and plan: See plan of care listed below. Current Visit: Yes (7) Debility Status: Chronic Assessment and plan: See plan of care listed below. Current Visit: Yes (8) S/P placement of cardiac pacemaker Status: Chronic Assessment and plan: See plan of care listed below. Current Visit: Yes Cardiology - PN: Subj Interval history: Parts Finisher: Dr. Gonzalez (placement of PM) PCP: Dr. Estevez SUMMARY: Ms. Rice is a 81 y/o WF who was transferred to our emergency room on 06/17/2017 for shortness of breath and chest discomfort via EMS. It was thought she may have aspirated and is being treated for pneumonia. She was admitted to the floor and the evening of admission her heart rate elevated to the 140s-150s and we were consulted to see her. She was given a cardizem bolus and started on the infusion. Upon review of her wringer machine operator strips, it appears as if she had an episode of atrial fibrillation with rapid ventricular response. Upon admission, she had a mildly elevated troponin of 0.171 with normal CPK and CK-MB. Following her episode of A. fib with RVR, her troponin harris to 0.746 and has trended down since. Throughout her troponin rise and fall , she has maintained a normal CPK and CK-MB. 2016 UPDATE: This morning, Ms. Rice is feeling well, but she is noted to have some ST changes on her EKG with deepening of T-wave inversions anterolaterally. Dr. Esteban has discussed with Dr. Rice and they agree to proceed with left heart catheterization to rule out new coronary artery disease. We will hold her NPO and ask for Dr. Fortune's assistance in proceeding with [facility]. We will hold off on giving her Eliquis until we see what her cath shows. ASSESSMENT/PLAN: 1. PAROXYSMAL ATRIAL FIBRILLATION - Continue with rate controlling medications. We will increase her beta blair to hopefully better control her heart rate. She has been started on low-dose Eliquis to see how she will tolerate. Thus far her blood counts have been stable. 2. ASPIRATION PNEUMONIA - She has been started on IV antibiotics and breathing treatments. 3. ELEVATED TROPONIN - According to previous records by Dr. Keane, she has had a remote history of heart catheterization but it did not reveal any coronary artery disease. It's possible her mild elevation of troponins is related to demand ischemia from hypoxia or RVR with atrial fibrillation; however , this morning, she has had some ST changes on her EKG with deepening of T-wave inversions anterolaterally. Dr. Esteban has discussed with Dr. Rice and they agree to proceed with left heart catheterization to rule out new coronary artery disease. We will hold her NPO and ask for Dr. Fortune's assistance in proceeding with [facility]. 4. HYPERTENSION - Currently well controlled. Will continue to monitor and adjust medications as directed. 5. EARLY ONSET ALZHEIMER'S - She has chronic long-term dementia and is a resident of the memory care [facility] at [facility]. 6. TYPE 2 DIABETES MELLITUS - She has been started on sliding scale insulin. Family medicine is following. 7. DEBILITY - Chronic. 8. 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 Gonzalez on 12/27/13. Pacemaker was interrogated during previous admission and was found to be functioning appropriately. This was interrogated on 06/18/17 and she was noted to have 6 days with more than 6 hours of AT/AF. Exam (Progress Note) - Constitutional Vitals: Period Temp Pulse Resp BP Sys/Sykes Pulse Ox Last 24 Hr 97.7 F-98.2 F 66-155 14-37 82-133/49-88 96-100 Exam: General appearance: Appears well. Pleasant and cooperative. no acute distress. Head exam: Present: normal inspection, normocephalic, atraumatic. Absent: hematoma, laceration Eye exam: Present: EOMI. Absent: conjunctival injection, nystagmus, periorbital swelling, scleral icterus, laceration to eyelids, jaundice Pupils: Present: PERRL. Absent: constricted, dilated, fixed, irregular, unequal ENT exam: Present: normal exam, normal external ear exam, mucous membranes moist. Neck exam: Present: normal inspection, midline trachea. Absent: masses, lymphadenopathy, tenderness, thyromegaly, carotid bruit Respiratory exam: Present: clear to auscultation bilaterally, diminished breath sounds to bilateral bases. Absent: accessory muscle use, chest wall tenderness , rales, rhonchi, wheezing. Cardiovascular exam: Present: regular rate and rhythm. Absent: gallop, JVD, rubs, murmur GI/Abdominal exam: Present: normal bowel sounds, soft. Absent: distended, firm , hernia, mass, tenderness. Extremities exam: Present: Normal Gait, No Clubbing, No Cyanosis, Upper Extr. Pulses 2+, Lower Extr. Pulses 2+, Trace BLE edema. Capillary refill less than 3 seconds. Musculoskeletal: Present: No Fluid Collection, No Pain, Normal Range of Motion Back exam: Present: normal inspection. Absent: muscle spasm, vertebral tenderness Neurological exam: Present: awake, alert, oriented X3, Moves all extremities well without hemiparesis or paralysis. Grossly intact without resting or essential tremor Psychiatric exam: Present: normal affect, normal mood Skin exam: Present: normal color, warm, dry, intact. Absent: cyanosis, diaphoretic, rash, urticaria Result/EKG - Labs CBC & BMP: 06/19/17 05:08 06/19/17 05:07 Lab Results: I have reviewed the past 24 hour labs Labs: Laboratory Results - last 24 hr 06/18/17 06/18/17 06/18/17 11:31 17:34 21:13 WBC RBC Hgb Hct MCV MCH MCHC RDW Plt Count MPV Neut % (Auto) Lymph % (Auto) [place] % (Auto) Eos % (Auto) Baso % (Auto) Neut # (Auto) Lymph # (Auto) [place] # (Auto) Eos # (Auto) Baso # (Auto) Total Counted Immature Gran % Nucleated RBC % Immature Gran # Segmented Neutrophils Band Neutrophils Lymphocytes Monocytes Eosinophils Nucleated RBCs # Platelet Estimate Giant Platelets Immature Plt Fraction Hypochromasia [place] Cells Sodium Potassium Chloride Carbon Dioxide Anion Gap BUN Creatinine GFR Calculation BUN/Creatinine Ratio Glucose POC Glucose 300 H 253 H 203 H Calculated Osmolality Calcium Phosphorus Magnesium Total Creatine Kinase CK-MB (CK-2) Troponin I 06/19/17 06/19/17 06/19/17 05:07 05:07 05:08 WBC 12.0 D RBC 3.65 L Hgb 11.2 L Hct 34.3 L MCV 94.0 MCH 31 MCHC 32.7 RDW 14.3 Plt Count 217 MPV 10.6 Neut % (Auto) 84.5 H Lymph % (Auto) 9.1 L [place] % (Auto) 5.6 Eos % (Auto) 0.1 Baso % (Auto) 0.1 Neut # (Auto) 10.2 H Lymph # (Auto) 1.1 L [place] # (Auto) 0.7 Eos # (Auto) 0.0 Baso # (Auto) 0.0 Total Counted 100 Immature Gran % 0.6 Nucleated RBC % 0.0 Immature Gran # 0.07 Segmented Neutrophils 84 Band Neutrophils 1 Lymphocytes 8 L Monocytes 6 Eosinophils 1 Nucleated RBCs # 0.00 Platelet Estimate Adequate Giant Platelets Few Immature Plt Fraction 0.0 Hypochromasia 1+ [place] Cells Slight Sodium 145 Potassium 4.3 Chloride 113 H Carbon Dioxide 24 Anion Gap 12.3 BUN 15 Creatinine 0.70 GFR Calculation 70 BUN/Creatinine Ratio 21.00 H Glucose 95 POC Glucose Calculated Osmolality 288.7 Calcium 8.2 L Phosphorus 2.3 L Magnesium 2.6 H Total Creatine Kinase 34 CK-MB (CK-2) 2.2 Troponin I 0.148 H D 06/19/17 07:15 WBC RBC Hgb Hct MCV MCH MCHC RDW Plt Count MPV Neut % (Auto) Lymph % (Auto) [place] % (Auto) Eos % (Auto) Baso % (Auto) Neut # (Auto) Lymph # (Auto) [place] # (Auto) Eos # (Auto) Baso # (Auto) Total Counted Immature Gran % Nucleated RBC % Immature Gran # Segmented Neutrophils Band Neutrophils Lymphocytes Monocytes Eosinophils Nucleated RBCs # Platelet Estimate Giant Platelets Immature Plt Fraction Hypochromasia [place] Cells Sodium Potassium Chloride Carbon Dioxide Anion Gap BUN Creatinine GFR Calculation BUN/Creatinine Ratio Glucose POC Glucose 135 H Calculated Osmolality Calcium Phosphorus Magnesium Total Creatine Kinase CK-MB (CK-2) Troponin I - EKG EKG results: interpreted by me EKG shows: atrial fibrillation
[2017-06-19] MEDS ORDERED: diphenhydrAMINE CAP 25 MG CAPSULE PO ONE (08:33)
[2017-06-19] MEDS: LEVOFLOXACIN 500 MG TABLET PO SCH ×2 (08:59→16:35)
[2017-06-19] MEDS ORDERED: SODIUM CHLORIDE 0.45% 1,000 ML IV SCH (09:00)
[2017-06-19] MEDS: PANTOPRAZOLE 40 MG TABLET PO SCH (09:00)
[2017-06-19] MEDS ORDERED: CLINDAMYCIN 300 MG CAPSULE PO SCH (09:00)
[2017-06-19] MEDS: DILTIAZEM CD 180 MG CAPSULE PO SCH (09:00)
[2017-06-19] MEDS: ASPIRIN EC 325 MG TABLET PO SCH (09:00)
[2017-06-19] MEDS ORDERED: LIDOCAINE 1% 20 ML VIAL ONE (09:38)
[2017-06-19] MEDS ORDERED: HEPARIN/NACL 0.9% 2 UNITS/ML 1,000 ML IV ONE (09:38)
[2017-06-19] MEDS ORDERED: DIAZEPAM 5 MG TABLET PO ONE (10:00)
[2017-06-19] MEDS ORDERED: HYDROmorphone 2 MG/1 ML VIAL ONE (10:07)
[2017-06-19] MEDS ORDERED: NITROGLYCERIN DRIP 50 MG/250 ML BOTTLE IV ONE (10:09)
[2017-06-19] MEDS ORDERED: VERAPAMIL 5 MG/2 ML VIAL ONE (10:10)
[2017-06-19] MEDS ORDERED: ENOXAPARIN 30 MG/0.3 ML SYRINGE ONE (10:13)
--- NOTE | 2017-06-19 10:43 | Cardiac Catheterization ---
Date of Procedure:: 06/19/17 Procedure: CLINICAL HISTORY: Please see the scanned history and physical PROCEDURES PERFORMED: 1. Right radial percutaneous arteriotomy 2. Left heart catheterization 3. Resting hemodynamics 4. Left ventriculography. 5. Coronary arteriography 6. Hemoband placement DESCRIPTION OF PROCEDURE: After obtaining informed consent, the patient was taken to the [employer], prepped and draped in the usual sterile manner. We accessed the right radial artery using modified Seldinger technique in the usual fashion. We placed a 6-Frisian slim sheath without difficulty. We then used a Tig catheter to engage the right coronary and left main coronary arteries to perform angiography in multiple orthogonal views. There were no problems or complications during the procedure. We then used an angled pigtail catheter to perform a left heart catheterization with left ventriculogram and pressure measurement in the usual fashion. After removing the catheter, we placed a HemoBand and removed the sheath without difficulty. There were no problems during the case. HEMODYNAMICS: Please see the accompanying data sheet. CORONARIES: The left main coronary artery is a large-caliber vessel which trifurcates into the left anterior descending left circumflex and ramus intermedius branches. The left main coronary artery is angiographically free of significant obstructive disease. The left circumflex coronary artery is a moderate-sized vessel which gives off a moderate-sized obtuse marginal branch. This vessel is angiographically free of significant obstructive disease. Ramus intermedius is a moderate to large bifurcating vessel which courses over the anterolateral wall. There are mild luminal irregularities in this vessel but no significant focal obstruction is seen. The left anterior descending is a moderate to large caliber vessel which wraps the apex. There is a small proximal diagonal branch which has a 80-90% stenosis but this vessel is less than 2 mm in size. The first septal commissary assistant is a small vessel and appears to have a proximal high-grade stenosis. I do not see any other significant obstructive disease in this vessel. The right coronary artery is a moderate-sized vessel which gives off the posterior descending artery and a posterior lateral system. The right coronary artery is angiographically free of significant obstructive disease. LEFT VENTRICULOGRAPHY: Left ventriculogram shows an overall preservation of left ventricular systolic function with ejection fraction estimated at 50-55%, however there is hypokinesis of the apex. IMPRESSION: 1. I do not see any significant obstructive disease in the major epicardial vessels. There is a small septal commissary assistant and small diagonal branch with significant disease but these are not interventional candidates. 2. Overall left ventricular function is normal but there is anteroapical hypokinesis as described above. 3. Mildly elevated left ventricular end-diastolic pressure. PLAN: At this point we will continue medical management. Possible explanations for the anteroapical hypokinesis and EKG changes include transient thrombus secondary to atrial fibrillation/thromboembolic event, transient spasm, supply demand ischemia from atrial fibrillation with rapid ventricular response, or Takotsubo cardiomyopathy. I do not think she needs any sort of cardiac revascularization procedure at this time. We will continue medical management and anticoagulation for atrial fibrillation. Anesthesia: minimal conscious sedation Surgeon / Physician: Tobi Esteban Estimated blood loss: minimal Condition: stable Disposition: ICU/CCU - Medications / Follow-up
[2017-06-19] MEDS ORDERED: SODIUM CHLORIDE 0.9% 1,000 ML IV SCH (11:00)
[2017-06-19] MEDS: CHOLECALCIFEROL 1,000 UNIT TABLET PO SCH (11:15)
[2017-06-19] MEDS: ASCORBIC ACID 500 MG TABLET PO SCH ×2 (11:15→21:02)
[2017-06-19] MEDS: CYANOCOBALAMIN 500 MCG TABLET PO SCH (11:15)
[2017-06-19] MEDS: NEOMYCIN/POLYMYXIN/BACITRACIN OINT 0.9 GM PACK TOP SCH (11:15)
[2017-06-19] MEDS: APIXABAN 2.5 MG TABLET PO SCH ×2 (11:16→21:04)
[2017-06-19] MEDS: DOCUSATE SODIUM 100 MG CAPSULE PO SCH ×2 (11:16→21:02)
[2017-06-19] MEDS: METOPROLOL TARTRATE 25 MG TABLET PO SCH (11:20)
[2017-06-19] MEDS ORDERED: LEVOFLOXACIN 500 MG TABLET PO SCH (15:00)
[2017-06-19] MEDS: DIGOXIN 0.125 MG TABLET PO SCH (16:34)
[2017-06-19] MEDS: CLINDAMYCIN 300 MG CAPSULE PO SCH ×2 (16:34→21:02)
[2017-06-19] MEDS: DILTIAZEM INJ 100 MG in SODIUM CHLORIDE 0.9% 100 ML IV SCH (21:00)
[2017-06-19] MEDS ORDERED: DILTIAZEM CD 180 MG CAPSULE PO SCH (21:00)
[2017-06-19] MEDS: clonazePAM 0.5 MG TABLET PO SCH (21:01)
[2017-06-19] MEDS: METOPROLOL TARTRATE 50 MG TABLET PO SCH (21:02)
[2017-06-19] MEDS: GABAPENTIN 300 MG CAPSULE PO SCH (21:02)
[2017-06-19] MEDS: SERTRALINE 100 MG TABLET PO SCH (21:03)
[2017-06-20 05:13] LABS: Basophils % 0.5 % (0.0-0.8); Eosinophils # 0.2 10*3/uL (0.0-0.87); Eosinophils % 2.1 % (0.00-10.9); Hematocrit 34.5 VOL% (35.7-47.0); Hemoglobin 10.8 GM/DL (12.0-16.0); Immature Granulocytes % 0.4 %; Immature Granulocytes Absolute 0.03 #; Lymphocytes # 1.3 10*3/uL (1.4-4.0); Mean Corpuscular HGB Conc 31.3 GM/DL (32-36); Mean Corpuscular Hemoglobin 30 PG (27-34); Mean Corpuscular Volume 96.6 FL (87-102); Mean Platelet Volume 11.1 FL (9.6-12.0); Monocytes # 0.6 10*3/uL (0.11-0.8); Neutrophils # 6.2 10*3/uL (1.4-7.4); Platelet Count 199 T/CUMM (130-400); Red Blood Count 3.57 MC/CUMM (3.8-5.5); Red Cell Distribution Width 14.5 % (9.3-17.3); White Blood Count 8.4 T/CUMM (4-12)
[2017-06-20 05:42] LABS: Blood Urea Nitrogen 14 MG/DL (7-18); Calcium 7.7 MG/DL (8.5-10.1); Glucose 83 MG/DL (74-106); Magnesium 2.1 MG/DL (1.8-2.4); Potassium 4.4 MMOL/L (3.5-5.1); Sodium 143 MMOL/L (136-145)
[2017-06-20 05:44] LABS: Troponin I Only 0.062 NG/ML (0.00-0.045)
[2017-06-20 06:22] LABS: Hypochromasia 1+; Platelet Estimate Adequate
--- NOTE | 2017-06-20 07:44 | EKG Report ---
Stationary ECG Study [facility] Test Date: 06/20/2017 7:44 AM Pat Name: SAMINA ROMERO Department: Room: 121 Gender: F Youth Teacher: : 1935 Requested by: Shane Christie Order Number: [id number] Reading MD: TENNILLE GRIGSBY Intervals [place] Rate: 69 P: 999 NC: 0 QRS: 202 QRSD: 118 T: 246 QT: 482 QTc: 501 Interpretive Statements ATRIAL FIBRILLATION ELECTRONIC VENTRICULAR PACEMAKER ST DEVIATION AND MARKED T-WAVE ABNORMALITY Electronically Signed On 06-20-17 13:59:32 CDT by TENNILLE GRIGSBY [email or web address]
[2017-06-20] MEDS: INSULIN LISPRO 100 UNIT/ML SUBCUT SCH ×4 (07:58→21:16)
[2017-06-20] MEDS: LEVOFLOXACIN 500 MG TABLET PO SCH (09:59)
[2017-06-20] MEDS: CHOLECALCIFEROL 1,000 UNIT TABLET PO SCH (10:00)
[2017-06-20] MEDS: METOPROLOL TARTRATE 50 MG TABLET PO SCH ×2 (10:00→21:13)
[2017-06-20] MEDS: DILTIAZEM CD 180 MG CAPSULE PO SCH (10:00)
[2017-06-20] MEDS: ASPIRIN EC 325 MG TABLET PO SCH (10:00)
[2017-06-20] MEDS: CYANOCOBALAMIN 500 MCG TABLET PO SCH (10:00)
[2017-06-20] MEDS: PANTOPRAZOLE 40 MG TABLET PO SCH (10:00)
[2017-06-20] MEDS: ASCORBIC ACID 500 MG TABLET PO SCH ×2 (10:01→21:14)
[2017-06-20] MEDS: CLINDAMYCIN 300 MG CAPSULE PO SCH ×2 (10:01→21:16)
[2017-06-20] MEDS: APIXABAN 2.5 MG TABLET PO SCH ×2 (10:01→21:15)
[2017-06-20] MEDS: DOCUSATE SODIUM 100 MG CAPSULE PO SCH ×2 (10:01→21:15)
--- NOTE | 2017-06-20 10:05 | Cardiology Progress Note ---
Assessment and Plan (1) Paroxysmal atrial fibrillation Status: Chronic Assessment and plan: See HPI. Her rate is now well controlled and she is on proper stroke prophylaxis. Continue current management. She is okay to move to the floor/ telemetry later today. Current Visit: No (2) Pacemaker Status: Acute Assessment and plan: This is been interrogated and is functioning normally. Current Visit: Yes (3) Aspiration pneumonia Status: Acute Assessment and plan: Clinically she is much better. Current Visit: Yes (4) Elevated troponin Status: Acute Assessment and plan: See HPI. Cardiac catheterization did not show any significant coronary artery disease in need of revascularization. She had preserved left ventricular function. Continue current management. Current Visit: Yes (5) Alzheimer's type dementia Status: Chronic Current Visit: Yes (6) Debility Status: Chronic Current Visit: Yes (7) Hypertension Status: Chronic Current Visit: Yes Cardiology - PN: Subj Interval history: SUMMARY: Ms. Rice is a 81 y/o WF who was transferred to our emergency room on 06/17/2017 for shortness of breath and chest discomfort via EMS. It was thought she may have aspirated and is being treated for pneumonia. She was admitted to the floor and the evening of admission her heart rate elevated to the 140s-150s and we were consulted to see her. She was given a cardizem bolus and started on the infusion. 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 Upon admission, she had a mildly elevated troponin of 0.171 with normal CPK and CK-MB. Following her episode of A. fib with RVR, her troponin harris to 0.746 and has trended down since. Throughout her troponin rise and fall , she has maintained a normal CPK and CK-MB. 2016 UPDATE: This morning, Ms. Rice is feeling well, but she is noted to have some ST changes on her EKG with deepening of T-wave inversions anterolaterally. Dr. Esteban has discussed with Dr. Rice and they agree to proceed with left heart catheterization to rule out new coronary artery disease. We will hold her NPO and ask for Dr. Fortune's assistance in proceeding with [facility]. We will hold off on giving her Eliquis until we see what her cath shows. .3 2016 UPDATE: The patient is doing very well this morning. She is not having any sort of cardiac symptoms such as palpitations or chest pain. Her breathing is doing very well today. Her only complaint is of an ulcer on her left heel. This is a chronic problem which waxes and wanes in severity. Her rhythm is now well controlled. She has no problems or complications from her right radial artery cardiac catheterization site. Her laboratory tests today are stable. Overall she is much better and I think can be transferred to telemetry. ASSESSMENT/PLAN: 1. PAROXYSMAL ATRIAL FIBRILLATION -this is now well controlled on her current medications. We started her on low-dose Eliquis as well. Continue current management. 2. ASPIRATION PNEUMONIA - She has been started on IV antibiotics and breathing treatments. 3. ELEVATED TROPONIN -the patient had a slight bump in cardiac troponin which was probably secondary to the A. fib with RVR. She had new EKG changes yesterday suggestive of possible cardiac ischemia so we did a cardiac catheterization via the right radial artery. This did not reveal any significant obstructive coronary artery disease in need of intervention. She had preserved left ventricular function. At this point I suspect this was secondary to a transient spasm, transient thromboembolic event related to the atrial fibrillation, or perhaps simply supply demand mismatch. At any rate, she does not have any significant obstructive coronary disease in need of intervention and is doing well on her current management. 4. HYPERTENSION - Currently well controlled. Will continue to monitor and adjust medications as directed. 5. EARLY ONSET ALZHEIMER'S - She has chronic long-term dementia and is a resident of the memory care [facility] at [facility]. 6. TYPE 2 DIABETES MELLITUS - She has been started on sliding scale insulin. Family medicine is following. 7. DEBILITY - Chronic. 8. 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 Gonzalez on 12/27/13. Pacemaker was interrogated during previous admission and was found to be functioning appropriately. This was interrogated on 06/18/17 and she was noted to have 6 days with more than 6 hours of AT/AF. Exam (Progress Note) - Constitutional Vitals: Period Temp Pulse Resp BP Sys/Sykes Pulse Ox Last 24 Hr 97.8 F-98.8 F 60-98 11-27 76-141/47-97 94-100 Exam: General: Frail, elderly HEENT: Normocephalic, atraumatic Neck: Supple Neck, Midline Trachea Cardiac: Irregular rhythm, 2/6 systolic murmur, no gallop, no rub Lungs: Clear to Ascultation, No Wheeze, Rales, Rhonchi Neuro: Cranial Nerve 2-12 Intact, diffuse generalized weakness Abdomen: Soft, Active Bowel Sounds, No Masses, No Pulsations/Bruits Skin: Normal color, no rash Extremities: No Clubbing, No Cyanosis, No Edema, Normal Upper Extr. Pulses Radial artery: The right radial artery at the site of cardiac catheterization shows no significant problem or complication Musculoskeletal: No acute abnormality noted Psychiatric: The patient is alert and oriented. The patient has a flat affect but does not appear to be anxious or depressed. Result/EKG - Labs CBC & BMP: 06/20/17 04:35 06/20/17 04:35 Lab Results: I have reviewed the past 24 hour labs Labs: Laboratory Results - last 24 hr 06/19/17 06/19/17 06/19/17 11:10 15:57 20:52 WBC RBC Hgb Hct MCV MCH MCHC RDW Plt Count MPV Neut % (Auto) Lymph % (Auto) [place] % (Auto) Eos % (Auto) Baso % (Auto) Neut # (Auto) Lymph # (Auto) [place] # (Auto) Eos # (Auto) Baso # (Auto) Immature Gran % Nucleated RBC % Immature Gran # Nucleated RBCs # Platelet Estimate Immature Plt Fraction Hypochromasia Sodium Potassium Chloride Carbon Dioxide Anion Gap BUN Creatinine GFR Calculation BUN/Creatinine Ratio Glucose POC Glucose 147 H 124 H 158 H Calculated Osmolality Calcium Magnesium Total Creatine Kinase CK-MB (CK-2) Troponin I 06/20/17 06/20/17 06/20/17 04:35 04:35 07:29 WBC 8.4 RBC 3.57 L Hgb 10.8 L Hct 34.5 L MCV 96.6 MCH 30 MCHC 31.3 L RDW 14.5 Plt Count 199 MPV 11.1 Neut % (Auto) 74.0 H Lymph % (Auto) 16.0 L [place] % (Auto) 7.0 Eos % (Auto) 2.1 Baso % (Auto) 0.5 Neut # (Auto) 6.2 Lymph # (Auto) 1.3 L [place] # (Auto) 0.6 Eos # (Auto) 0.2 Baso # (Auto) 0.0 Immature Gran % 0.4 Nucleated RBC % 0.0 Immature Gran # 0.03 Nucleated RBCs # 0.00 Platelet Estimate Adequate Immature Plt Fraction 0.0 Hypochromasia 1+ Sodium 143 Potassium 4.4 Chloride 112 H Carbon Dioxide 24 Anion Gap 11.4 BUN 14 Creatinine 0.70 GFR Calculation 70 BUN/Creatinine Ratio 20.00 Glucose 83 POC Glucose 97 Calculated Osmolality 284.0 Calcium 7.7 L Magnesium 2.1 Total Creatine Kinase 22 L D CK-MB (CK-2) 1.3 Troponin I 0.062 H D - EKG EKG results: interpreted by me
[2017-06-20] MEDS: NEOMYCIN/POLYMYXIN/BACITRACIN OINT 0.9 GM PACK TOP SCH (10:18)
[2017-06-20] MEDS: DIGOXIN 0.125 MG TABLET PO SCH (13:25)
--- NOTE | 2017-06-20 13:42 | Family Practice Progress Note ---
Family Practice - PN: Subj Interval history: Patient has done well over the last 12 hrs. She denies any new problems. Cardiology has released patient to transfer to telemetry. Her a.m. lab studies are stable. Lung clarke are clear to auscultation, abdomen is soft. Patient is in normal sinus rhythm at present. No hematoma formation. Will transfer to telemetry and continue present treatment plan Exam (Progress Note) - Constitutional Vitals: Period Temp Pulse Resp BP Sys/Sykes Pulse Ox Last 24 Hr 97.8 F-98.8 F 60-102 11-27 89-141/51-97 94-100 Results - Labs CBC & BMP: 06/20/17 04:35 06/20/17 04:35
[2017-06-20] MEDS: clonazePAM 0.5 MG TABLET PO SCH (21:14)
[2017-06-20] MEDS: GABAPENTIN 300 MG CAPSULE PO SCH (21:14)
[2017-06-20] MEDS: MAGNESIUM CHLORIDE 64 MG TABLET PO SCH (21:15)
[2017-06-20] MEDS: SERTRALINE 100 MG TABLET PO SCH (21:15)
[2017-06-21 07:45] LABS: Calcium 7.9 MG/DL (8.5-10.1); Magnesium 1.9 MG/DL (1.8-2.4); Osmolality,Calculated 285.1 MOS/KG (273-304); Potassium 4.4 MMOL/L (3.5-5.1)
--- NOTE | 2017-06-21 07:49 | EKG Report ---
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
[2017-06-21] MEDS: INSULIN LISPRO 100 UNIT/ML SUBCUT SCH ×4 (08:41→21:27)
[2017-06-21] MEDS: CYANOCOBALAMIN 500 MCG TABLET PO SCH (08:42)
[2017-06-21] MEDS: LEVOFLOXACIN 500 MG TABLET PO SCH (08:43)
[2017-06-21] MEDS: PANTOPRAZOLE 40 MG TABLET PO SCH (08:43)
[2017-06-21] MEDS: CLINDAMYCIN 300 MG CAPSULE PO SCH ×3 (08:43→21:19)
[2017-06-21] MEDS: DILTIAZEM CD 180 MG CAPSULE PO SCH (08:43)
[2017-06-21] MEDS: ASPIRIN EC 325 MG TABLET PO SCH (08:43)
[2017-06-21] MEDS: CHOLECALCIFEROL 1,000 UNIT TABLET PO SCH (08:43)
[2017-06-21] MEDS: MAGNESIUM CHLORIDE 64 MG TABLET PO SCH ×2 (08:43→21:19)
[2017-06-21] MEDS: APIXABAN 2.5 MG TABLET PO SCH ×2 (08:44→21:19)
[2017-06-21] MEDS: NEOMYCIN/POLYMYXIN/BACITRACIN OINT 0.9 GM PACK TOP SCH (08:44)
[2017-06-21] MEDS: ASCORBIC ACID 500 MG TABLET PO SCH ×2 (08:44→21:19)
[2017-06-21] MEDS: METOPROLOL TARTRATE 50 MG TABLET PO SCH ×2 (08:44→21:19)
[2017-06-21] MEDS: DOCUSATE SODIUM 100 MG CAPSULE PO SCH ×2 (08:44→21:19)
[2017-06-21 09:36] LABS: Basophils % 0.3 % (0.0-0.8); Eosinophils # 0.2 10*3/uL (0.0-0.87); Eosinophils % 2.8 % (0.00-10.9); Hematocrit 34.2 VOL% (35.7-47.0); Immature Granulocytes % 0.2 %; Immature Granulocytes Absolute 0.01 #; Lymphocytes # 1.6 10*3/uL (1.4-4.0); Lymphocytes % 26.6 % (21.3-54.2); Mean Corpuscular HGB Conc 32.2 GM/DL (32-36); Mean Corpuscular Hemoglobin 30 PG (27-34); Mean Corpuscular Volume 93.7 FL (87-102); Monocytes # 0.5 10*3/uL (0.11-0.8); Monocytes % 7.5 % (1.7-12.7); Neutrophils # 3.9 10*3/uL (1.4-7.4); Neutrophils % 62.6 % (38.7-73.9); Platelet Count 168 T/CUMM (130-400); Red Blood Count 3.65 MC/CUMM (3.8-5.5); Red Cell Distribution Width 14.2 % (9.3-17.3); White Blood Count 6.2 T/CUMM (4-12)
--- NOTE | 2017-06-21 12:09 | Cardiology Progress Note ---
Assessment and Plan (1) Paroxysmal atrial fibrillation Status: Chronic Assessment and plan: See HPI. Her rate is now well controlled and she is on proper stroke prophylaxis. Continue current management. Current Visit: No (2) Pacemaker Status: Acute Assessment and plan: This is been interrogated and is functioning normally. Current Visit: Yes (3) Aspiration pneumonia Status: Acute Assessment and plan: Clinically she is much better. Current Visit: Yes (4) Elevated troponin Status: Acute Assessment and plan: See HPI. Cardiac catheterization did not show any significant coronary artery disease in need of revascularization. She had preserved left ventricular function. Continue current management. Current Visit: Yes (5) Alzheimer's type dementia Status: Chronic Current Visit: Yes (6) Debility Status: Chronic Current Visit: Yes (7) Hypertension Status: Chronic Current Visit: Yes Cardiology - PN: Subj Interval history: SUMMARY: Ms. Rice is a 81 y/o WF who was transferred to our emergency room on 06/17/2017 for shortness of breath and chest discomfort via EMS. It was thought she may have aspirated and is being treated for pneumonia. She was admitted to the floor and the evening of admission her heart rate elevated to the 140s-150s and we were consulted to see her. She was given a cardizem bolus and started on the infusion. Upon review of her property assessment monitor strips, it appears as if she had an episode of atrial fibrillation with rapid ventricular response. Upon admission, she had a mildly elevated troponin of 0.171 with normal CPK and CK-MB. Following her episode of A. fib with RVR, her troponin harris to 0.746 and has trended down since. Throughout her troponin rise and fall , she has maintained a normal CPK and CK-MB. 2016 UPDATE: This morning, Ms. Rice is feeling well, but she is noted to have some ST changes on her EKG with deepening of T-wave inversions anterolaterally. Dr. Esteban has discussed with Dr. Rice and they agree to proceed with left heart catheterization to rule out new coronary artery disease. We will hold her NPO and ask for Dr. Fortune's assistance in proceeding with [facility]. We will hold off on giving her Eliquis until we see what her cath shows. .3 2016 UPDATE: The patient is doing very well this morning. She is not having any sort of cardiac symptoms such as palpitations or chest pain. Her breathing is doing very well today. Her only complaint is of an ulcer on her left heel. This is a chronic problem which waxes and wanes in severity. Her rhythm is now well controlled. She has no problems or complications from her right radial artery cardiac catheterization site. Her laboratory tests today are stable. Overall she is much better and I think can be transferred to telemetry. June 21, 2017 UPDATE: The patient is up sitting in a chair today. She looks much better than when she arrived. She denies any cardiac symptoms today. She apparently had some mild transient chest and back discomfort earlier. As noted on her cardiac catheterization there is no significant obstructive disease in need of revascularization. Her rhythm remains atrial fib /flutter with controlled rate. Her blood pressure is normal today. She denies any palpitations, heart failure, or other cardiac symptoms today. Her breathing is steadily improving. ASSESSMENT/PLAN: 1. PAROXYSMAL ATRIAL FIBRILLATION -this is now well controlled on her current medications. We started her on low-dose Eliquis as well. Continue current management. 2. ASPIRATION PNEUMONIA - She has been started on IV antibiotics and breathing treatments. 3. ELEVATED TROPONIN -the patient had a slight bump in cardiac troponin which was probably secondary to the A. fib with RVR. She had new EKG changes yesterday suggestive of possible cardiac ischemia so we did a cardiac catheterization via the right radial artery. This did not reveal any significant obstructive coronary artery disease in need of intervention. She had preserved left ventricular function. At this point I suspect this was secondary to a transient spasm, transient thromboembolic event related to the atrial fibrillation, or perhaps simply supply demand mismatch. At any rate, she does not have any significant obstructive coronary disease in need of intervention and is doing well on her current management. 4. HYPERTENSION - Currently well controlled. Will continue to monitor and adjust medications as directed. 5. EARLY ONSET ALZHEIMER'S - She has chronic long-term dementia and is a resident of the memory care roman at [facility]. 6. TYPE 2 DIABETES MELLITUS - She has been started on sliding scale insulin. Family medicine is following. 7. DEBILITY - Chronic. 8. 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 Gonzalez on 12/27/13. Pacemaker was interrogated during previous admission and was found to be functioning appropriately. This was interrogated on 06/18/17 and she was noted to have 6 days with more than 6 hours of AT/AF. Exam (Progress Note) - Constitutional Vitals: Period Temp Pulse Resp BP Sys/Sykes Pulse Ox Last 24 Hr 98 F-100.5 F 67-96 15-24 111-147/63-76 80-100 Exam: General: Frail, elderly, she looks stronger today HEENT: Normocephalic, atraumatic Neck: Supple Neck, Midline Trachea Cardiac: Irregular rhythm, 2/6 systolic murmur, no gallop, no rub Lungs: Clear to Ascultation, No Wheeze, Rales, Rhonchi Neuro: Cranial Nerve 2-12 Intact, diffuse generalized weakness Abdomen: Soft, Active Bowel Sounds, No Masses, No Pulsations/Bruits Skin: Normal color, no rash Extremities: No Clubbing, No Cyanosis, No Edema, Normal Upper Extr. Pulses Radial artery: The right radial artery at the site of cardiac catheterization shows no significant problem or complication Musculoskeletal: No acute abnormality noted Psychiatric: The patient is alert and oriented. The patient has a flat affect but does not appear to be anxious or depressed. Result/EKG - Labs CBC & BMP: 06/21/17 07:11 06/21/17 07:08 Lab Results: I have reviewed the past 24 hour labs Labs: Laboratory Results - last 24 hr 06/20/17 06/20/17 06/21/17 17:27 19:40 07:08 WBC RBC Hgb Hct MCV MCH MCHC RDW Plt Count MPV Neut % (Auto) Lymph % (Auto) [place] % (Auto) Eos % (Auto) Baso % (Auto) Neut # (Auto) Lymph # (Auto) [place] # (Auto) Eos # (Auto) Baso # (Auto) Immature Gran % Nucleated RBC % Immature Gran # Nucleated RBCs # Immature Plt Fraction Sodium 142 Potassium 4.4 Chloride 111 H Carbon Dioxide 27 Anion Gap 8.4 BUN 13 Creatinine 0.80 GFR Calculation 62 BUN/Creatinine Ratio 16.00 Glucose 152 H POC Glucose 246 H 189 H Calculated Osmolality 285.1 Calcium 7.9 L Magnesium 1.9 06/21/17 06/21/17 06/21/17 07:11 07:16 11:47 WBC 6.2 RBC 3.65 L Hgb 11.0 L Hct 34.2 L MCV 93.7 MCH 30 MCHC 32.2 RDW 14.2 Plt Count 168 MPV 12.0 Neut % (Auto) 62.6 Lymph % (Auto) 26.6 [place] % (Auto) 7.5 Eos % (Auto) 2.8 Baso % (Auto) 0.3 Neut # (Auto) 3.9 Lymph # (Auto) 1.6 [place] # (Auto) 0.5 Eos # (Auto) 0.2 Baso # (Auto) 0.0 Immature Gran % 0.2 Nucleated RBC % 0.0 Immature Gran # 0.01 Nucleated RBCs # 0.00 Immature Plt Fraction 0.0 Sodium Potassium Chloride Carbon Dioxide Anion Gap BUN Creatinine GFR Calculation BUN/Creatinine Ratio Glucose POC Glucose 160 H 228 H Calculated Osmolality Calcium Magnesium - EKG EKG results: interpreted by me
[2017-06-21] MEDS: DIGOXIN 0.125 MG TABLET PO SCH (12:11)
--- NOTE | 2017-06-21 14:01 | XRay Report ---
2 view chest June 21, 2017 at 0730 hours Indication: Difficulty breathing, pneumonia Comparison images performed June 18, 2017 Findings: Cardiomediastinal contours are stable. 2-lead pacemaker is unchanged in position. Nodular partially calcified densities within the right midlung, likely granulomatous changes. Slight increase in the small bilateral pleural effusions, left greater than right with patchy consolidations again noted within the left lower lobe. No acute osseous abnormalities. Impression: Slight increase in the small bilateral pleural effusions, left greater than right with patchy parenchymal densities within the left lung base, likely infectious in etiology PROCEDURE INTERPRETED AT [facility] DEPARTMENT OF RADIOLOGY Final Report Signed by: Rocco Farrell
--- NOTE | 2017-06-21 14:34 | Family Practice Progress Note ---
Family Practice - PN: Subj Interval history: Patient has done well over the last 12 hrs. She denies any new problems. Cardiology has released patient to transfer to telemetry. Her a.m. lab studies are stable. Lung clarke are clear to auscultation, abdomen is soft. Patient is in normal sinus rhythm at present. No hematoma formation. Will transfer to telemetry and continue present treatment plan 06/21/17-patient denies any chest pain or dyspnea. She is still very weak. She is going to require extra assistance on discharge her. Family is trying to make arrangements for extra assistance. Her a.m. labs are stable. Physical exam is stable overall. We will have her try to increase activity today and hopefully can discharge in a.m. Exam (Progress Note) - Constitutional Vitals: Period Temp Pulse Resp BP Sys/Sykes Pulse Ox Last 24 Hr 98 F-100.5 F 74-96 15-20 124-147/63-78 80-96 Results - Labs CBC & BMP: 06/21/17 07:11 06/21/17 07:08
[2017-06-21] MEDS: clonazePAM 0.5 MG TABLET PO SCH (21:18)
[2017-06-21] MEDS: GABAPENTIN 300 MG CAPSULE PO SCH (21:19)
[2017-06-21] MEDS: SERTRALINE 100 MG TABLET PO SCH (21:19)
[2017-06-22 05:13] LABS: Basophils % 0.5 % (0.0-0.8); Eosinophils # 0.2 10*3/uL (0.0-0.87); Eosinophils % 3.4 % (0.00-10.9); Hematocrit 32.4 VOL% (35.7-47.0); Hemoglobin 10.6 GM/DL (12.0-16.0); Immature Granulocytes % 0.5 %; Immature Granulocytes Absolute 0.03 #; Lymphocytes # 1.9 10*3/uL (1.4-4.0); Lymphocytes % 33.6 % (21.3-54.2); Mean Corpuscular HGB Conc 32.7 GM/DL (32-36); Mean Corpuscular Hemoglobin 30 PG (27-34); Mean Corpuscular Volume 92.3 FL (87-102); Mean Platelet Volume 10.9 FL (9.6-12.0); Monocytes # 0.5 10*3/uL (0.11-0.8); Monocytes % 8.6 % (1.7-12.7); Neutrophils % 53.4 % (38.7-73.9); Platelet Count 203 T/CUMM (130-400); Red Blood Count 3.51 MC/CUMM (3.8-5.5); Red Cell Distribution Width 14.3 % (9.3-17.3); White Blood Count 5.6 T/CUMM (4-12)
[2017-06-22 05:44] LABS: Calcium 8.3 MG/DL (8.5-10.1); Magnesium 1.7 MG/DL (1.8-2.4); Osmolality,Calculated 284.3 MOS/KG (273-304); Potassium 4.3 MMOL/L (3.5-5.1)
[2017-06-22] MEDS: MAGNESIUM SULF RIDER 2 GM in PREMIX 1 EACH IV PRN (06:06)
[2017-06-22] MEDS: CYANOCOBALAMIN 500 MCG TABLET PO SCH (10:43)
[2017-06-22] MEDS: CHOLECALCIFEROL 1,000 UNIT TABLET PO SCH (10:44)
[2017-06-22] MEDS: ASPIRIN EC 325 MG TABLET PO SCH (10:44)
[2017-06-22] MEDS: DOCUSATE SODIUM 100 MG CAPSULE PO SCH (10:44)
[2017-06-22] MEDS: DILTIAZEM CD 180 MG CAPSULE PO SCH (10:45)
[2017-06-22] MEDS: MAGNESIUM CHLORIDE 64 MG TABLET PO SCH (10:45)
--- NOTE | 2017-06-22 10:45 | EKG Report ---
Stationary ECG Study 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
[2017-06-22] MEDS: PANTOPRAZOLE 40 MG TABLET PO SCH (10:47)
[2017-06-22] MEDS: CLINDAMYCIN 300 MG CAPSULE PO SCH (10:48)
[2017-06-22] MEDS: ASCORBIC ACID 500 MG TABLET PO SCH (10:49)
[2017-06-22] MEDS: LEVOFLOXACIN 500 MG TABLET PO SCH (10:50)
[2017-06-22] MEDS: APIXABAN 2.5 MG TABLET PO SCH (10:51)
[2017-06-22] MEDS: METOPROLOL TARTRATE 50 MG TABLET PO SCH (10:51)
[2017-06-22] MEDS: NEOMYCIN/POLYMYXIN/BACITRACIN OINT 0.9 GM PACK TOP SCH (11:08)
[2017-06-22] MEDS: INSULIN LISPRO 100 UNIT/ML SUBCUT SCH ×3 (11:08→16:35)
--- NOTE | 2017-06-22 13:07 | Cardiology Progress Note ---
Assessment and Plan (1) Paroxysmal atrial fibrillation Status: Chronic Assessment and plan: See HPI. Her rate is now well controlled and she is on proper stroke prophylaxis. Continue current management. From my standpoint it is okay for her to be discharged home. Current Visit: No (2) Pacemaker Status: Acute Assessment and plan: This is been interrogated and is functioning normally. Current Visit: Yes (3) Aspiration pneumonia Status: Acute Assessment and plan: Clinically she is much better and is now off of oxygen. Current Visit: Yes (4) Elevated troponin Status: Acute Assessment and plan: See HPI. Cardiac catheterization did not show any significant coronary artery disease in need of revascularization. She had preserved left ventricular function. Continue current management. Current Visit: Yes (5) Alzheimer's type dementia Status: Chronic Current Visit: Yes (6) Debility Status: Chronic Current Visit: Yes (7) Hypertension Status: Chronic Current Visit: Yes Cardiology - PN: Subj Interval history: SUMMARY: Ms. Rice is a 81 y/o WF who was transferred to our emergency room on 06/17/2017 for shortness of breath and chest discomfort via EMS. It was thought she may have aspirated and is being treated for pneumonia. She was admitted to the floor and the evening of admission her heart rate elevated to the 140s-150s and we were consulted to see her. She was given a cardizem bolus and started on the infusion. Upon review of her cardiac monitor technician strips, it appears as if she had an episode of atrial fibrillation with rapid ventricular response. Upon admission, she had a mildly elevated troponin of 0.171 with normal CPK and CK-MB. Following her episode of A. fib with RVR, her troponin harris to 0.746 and has trended down since. Throughout her troponin rise and fall , she has maintained a normal CPK and CK-MB. 2016 UPDATE: This morning, Ms. Rice is feeling well, but she is noted to have some ST changes on her EKG with deepening of T-wave inversions anterolaterally. Dr. Esteban has discussed with Dr. Rice and they agree to proceed with left heart catheterization to rule out new coronary artery disease. We will hold her NPO and ask for Dr. Fortune's assistance in proceeding with [facility]. We will hold off on giving her Eliquis until we see what her cath shows. .3 2016 UPDATE: The patient is doing very well this morning. She is not having any sort of cardiac symptoms such as palpitations or chest pain. Her breathing is doing very well today. Her only complaint is of an ulcer on her left heel. This is a chronic problem which waxes and wanes in severity. Her rhythm is now well controlled. She has no problems or complications from her right radial artery cardiac catheterization site. Her laboratory tests today are stable. Overall she is much better and I think can be transferred to telemetry. June 21, 2017 UPDATE: The patient is up sitting in a chair today. She looks much better than when she arrived. She denies any cardiac symptoms today. She apparently had some mild transient chest and back discomfort earlier. As noted on her cardiac catheterization there is no significant obstructive disease in need of revascularization. Her rhythm remains atrial fib /flutter with controlled rate. Her blood pressure is normal today. She denies any palpitations, heart failure, or other cardiac symptoms today. Her breathing is steadily improving. 2016 UPDATE: The patient is up in a chair eating today. She denies any new complaints. Apparently she had a good night. She does not have any cardiac symptoms such as chest pain, palpitations, or edema. She is off oxygen and seems to be breathing well. Her atrial fib/flutter rate control appears to be excellent. The patient and family are wondering if she could possibly go home, and from a cardiac standpoint I think that would be fine. I would continue current management as an outpatient. ASSESSMENT/PLAN: 1. PAROXYSMAL ATRIAL FIBRILLATION -this is now well controlled on her current medications. We started her on low-dose Eliquis as well. Continue current management. This is well controlled and I think she could be discharged home from a cardiac standpoint. 2. ASPIRATION PNEUMONIA -this seems much better after IV antibiotics. She is off of oxygen. 3. ELEVATED TROPONIN -the patient had a slight bump in cardiac troponin which was probably secondary to the A. fib with RVR. She had new EKG changes yesterday suggestive of possible cardiac ischemia so we did a cardiac catheterization via the right radial artery. This did not reveal any significant obstructive coronary artery disease in need of intervention. She had preserved left ventricular function. At this point I suspect this was secondary to a transient spasm, transient thromboembolic event related to the atrial fibrillation, or perhaps simply supply demand mismatch. At any rate, she does not have any significant obstructive coronary disease in need of intervention and is doing well on her current management. 4. HYPERTENSION - Currently well controlled. Will continue to monitor and adjust medications as directed. 5. EARLY ONSET ALZHEIMER'S - She has chronic long-term dementia and is a resident of the memory care [facility] at [facility]. 6. TYPE 2 DIABETES MELLITUS - She has been started on sliding scale insulin. Family medicine is following. 7. DEBILITY - Chronic. 8. 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 Gonzalez on 12/27/13. Pacemaker was interrogated during previous admission and was found to be functioning appropriately. This was interrogated on 06/18/17 and she was noted to have 6 days with more than 6 hours of AT/AF. Exam (Progress Note) - Constitutional Vitals: Period Temp Pulse Resp BP Sys/Sykes Pulse Ox Last 24 Hr 97.4 F-99.7 F 63-91 17-20 119-149/58-79 93-98 Exam: General: Frail, elderly, she looks stronger today HEENT: Normocephalic, atraumatic Neck: Supple Neck, Midline Trachea Cardiac: Irregular rhythm, 2/6 systolic murmur, no gallop, no rub Lungs: Clear to Ascultation, No Wheeze, Rales, Rhonchi Neuro: Cranial Nerve 2-12 Intact, diffuse generalized weakness Abdomen: Soft, Active Bowel Sounds, No Masses, No Pulsations/Bruits Skin: Normal color, no rash Extremities: No Clubbing, No Cyanosis, No Edema, Normal Upper Extr. Pulses Radial artery: The right radial artery at the site of cardiac catheterization shows no significant problem or complication Musculoskeletal: No acute abnormality noted Psychiatric: The patient is alert and oriented. The patient has a flat affect but does not appear to be anxious or depressed. Result/EKG - Labs CBC & BMP: 06/22/17 05:01 06/22/17 05:01 Lab Results: I have reviewed the past 24 hour labs Labs: Laboratory Results - last 24 hr 06/21/17 06/21/17 06/22/17 16:27 19:56 05:01 WBC 5.6 RBC 3.51 L Hgb 10.6 L Hct 32.4 L MCV 92.3 MCH 30 MCHC 32.7 RDW 14.3 Plt Count 203 D MPV 10.9 Neut % (Auto) 53.4 Lymph % (Auto) 33.6 [place] % (Auto) 8.6 Eos % (Auto) 3.4 Baso % (Auto) 0.5 Neut # (Auto) 3.0 Lymph # (Auto) 1.9 [place] # (Auto) 0.5 Eos # (Auto) 0.2 Baso # (Auto) 0.0 Immature Gran % 0.5 Nucleated RBC % 0.0 Immature Gran # 0.03 Nucleated RBCs # 0.00 Immature Plt Fraction 0.0 Sodium Potassium Chloride Carbon Dioxide Anion Gap BUN Creatinine GFR Calculation BUN/Creatinine Ratio Glucose POC Glucose 235 H 341 H Calculated Osmolality Calcium Magnesium 06/22/17 06/22/17 06/22/17 05:01 07:10 12:01 WBC RBC Hgb Hct MCV MCH MCHC RDW Plt Count MPV Neut % (Auto) Lymph % (Auto) [place] % (Auto) Eos % (Auto) Baso % (Auto) Neut # (Auto) Lymph # (Auto) [place] # (Auto) Eos # (Auto) Baso # (Auto) Immature Gran % Nucleated RBC % Immature Gran # Nucleated RBCs # Immature Plt Fraction Sodium 141 Potassium 4.3 Chloride 109 H Carbon Dioxide 28 Anion Gap 8.3 BUN 11 Creatinine 0.90 GFR Calculation 53 BUN/Creatinine Ratio 12.00 Glucose 191 H POC Glucose 220 H 273 H Calculated Osmolality 284.3 Calcium 8.3 L Magnesium 1.7 L - EKG EKG results: interpreted by me
[2017-06-22] MEDS: DIGOXIN 0.125 MG TABLET PO SCH (13:23)
--- NOTE | 2017-06-22 13:44 | Discharge Summary ---
Hospital Course - Hospital Course Hospital Course: Patient is an 81-year-old white female who was admitted to the emergency room with shortness of breath and some intermittent chest pain. Patient was noted to have a pneumonia in the emergency room. She has a history of atrial fibrillation and is has a permanent pacemaker for sick sinus syndrome. Patient has a history of dementia and difficult to obtain history. In view of history she was admitted for further evaluation and therapy HOSPITAL COURSE -patient was admitted hospital lab and x-ray studies obtained. Patient was noted to have a slight right lower lobe pneumonia. She was started on appropriate antibiotics and treatment. She was admitted to the telemetry floor. The patient developed atrial flutter fibrillation with rapid ventricular response. She was started on appropriate therapy and the rate was controlled. she was seen in consultation by Dr. Esteban a local weather forcaster. Patient is noted to have some ST-T wave changes. In view of this a cardiac catheterization was recommended. Patient underwent a cardiac catheterization which was normal. She tolerated procedure well and is had an uneventful hospital course. She is generally much improved at time of discharge and has no active symptoms. Most recent chest x-ray reveals some persistent bilateral lower lobe pneumonia but is improved overall. Patient and family are ready for discharge her. Will discharge patient back to assisted living and have family contact Dr. Estevez for follow-up. She will need a follow-up chest x-ray in 10 days. Have family call or return to emergency room condition worsening problems develop. Diagnosis - Discharge Diagnosis (1) Community acquired pneumonia Status: Acute (2) Paroxysmal atrial fibrillation Status: Chronic (3) Pacemaker Status: Chronic (4) Alzheimer's type dementia Status: Chronic (5) Hypertension Status: Chronic (6) Type 2 diabetes mellitus Status: Chronic Discharge Plan - Discharge Data Disposition: Disch/Xfer to Snf Condition at Discharge: Stable Discharge Diet: diabetic diet Activity: ambulate only with your walker Weight Bearing at Discharge: weight bear as tolerated Contact your physician if you experience:: fever over 101, Shortness of breath - Discharge Medications New Digoxin Tab [Lanoxin Tab] 0.125 mg PO DAILY@1300 #30 tablet Levofloxacin Tab [Levaquin Tab] 500 mg PO DAILY #10 tablet Apixaban [Eliquis] 2.5 mg PO BID #60 tablet Continue OLANZapine TAB [ZyPREXA Tab] 5 mg PO TID tablet Diltiazem Cd Cap [Cardizem CD] 180 mg PO DAILY #30 capsule Sotalol [Betapace] 80 mg PO BID #60 tablet Cholecalciferol (Vitamin D3) [Vitamin D3] 1,000 mg PO DAILY metFORMIN [Glucophage] 500 mg PO BID Cyanocobalamin (Vitamin B-12) [Vitamin B-12] 1,000 mcg PO DAILY Meloxicam [Mobic] 7.5 mg PO DAILY Estrogens(Conj) Tab [Premarin Tab] 0.625 mg PO DAILY Glimepiride [Amaryl] 2 mg PO BID Acetaminophen Tab [Tylenol Tab] 650 mg PO Q6H PRN #0 tablet PRN Reason: Pain Mild(1-3), MILLER, Temp>100.4 Gabapentin Cap/Tab [Neurontin Cap/Tab] 300 mg PO BEDTIME capsule Magnesium Chloride [Slow Mag] 64 mg PO BID tablet Sertraline [Zoloft] 100 mg PO BEDTIME tablet Zaleplon [Sonata] 5 mg PO BEDTIME PRN #15 capsule PRN Reason: Sleep cloNIDine TAB [Catapres Tab] 0.1 mg PO Q6H PRN #0 tablet PRN Reason: Hypertension clonazePAM TAB [KlonoPIN] 0.25 mg PO BEDTIME #15 tablet Aspirin EC Tab 325 mg PO DAILY #30 tablet - Follow Up or Referral Follow Up: Taiwo Estevez MD [Physician] - (Needs to call clinic and set up a 10 day follow-up with chest x-ray) - Forms/Instructions Exam - Constitutional Vitals: Period Temp Pulse Resp BP Sys/Sykes Pulse Ox Last 24 Hr 97.4 F-99.7 F 63-91 17-20 119-149/58-79 93-98 General appearance: no acute distress - Head Head exam: Present: normal inspection - Eye Pupils: Present: PAM - ENT ENT exam: Present: normal exam - Neck Neck exam: Present: normal inspection - Respiratory Respiratory exam: Present: clear to auscultation bilaterally - Cardiovascular Cardiovascular exam: Present: other (Irregular irregularity consistent with atrial fibrillation) - GI/Abdominal GI/Abdominal exam: Present: normal bowel sounds, soft - Extremities Exam Extremities exam: Present: normal inspection - Back Exam Back exam: Present: normal inspection - Neurological Exam Neurological exam: Present: altered, other (Patient has confusion and memory changes consistent with dementia) - Psychiatric Psychiatric exam: Present: other (Patient has signs and symptoms consistent with dementia) - Skin Skin exam: Present: normal color Discharge Results Procedures and tests throughout hospitalization: Pending Orders 06/17/17 14:06 Blood Culture Stat 06/19/17 09:06 CL heart Routine Labs on day of discharge: Labs from last 24 hours 06/22/17 06/22/17 06/22/17 12:01 07:10 05:01 WBC RBC Hgb Hct MCV MCH MCHC RDW Plt Count MPV Neut % (Auto) Lymph % (Auto) [place] % (Auto) Eos % (Auto) Baso % (Auto) Neut # (Auto) Lymph # (Auto) [place] # (Auto) Eos # (Auto) Baso # (Auto) Immature Gran % Nucleated RBC % Immature Gran # Nucleated RBCs # Immature Plt Fraction Sodium 141 Potassium 4.3 Chloride 109 H Carbon Dioxide 28 Anion Gap 8.3 BUN 11 Creatinine 0.90 GFR Calculation 53 BUN/Creatinine Ratio 12.00 Glucose 191 H POC Glucose 273 H 220 H Calculated Osmolality 284.3 Calcium 8.3 L Magnesium 1.7 L 06/22/17 06/21/17 06/21/17 05:01 19:56 16:27 WBC 5.6 RBC 3.51 L Hgb 10.6 L Hct 32.4 L MCV 92.3 MCH 30 MCHC 32.7 RDW 14.3 Plt Count 203 D MPV 10.9 Neut % (Auto) 53.4 Lymph % (Auto) 33.6 [place] % (Auto) 8.6 Eos % (Auto) 3.4 Baso % (Auto) 0.5 Neut # (Auto) 3.0 Lymph # (Auto) 1.9 [place] # (Auto) 0.5 Eos # (Auto) 0.2 Baso # (Auto) 0.0 Immature Gran % 0.5 Nucleated RBC % 0.0 Immature Gran # 0.03 Nucleated RBCs # 0.00 Immature Plt Fraction 0.0 Sodium Potassium Chloride Carbon Dioxide Anion Gap BUN Creatinine GFR Calculation BUN/Creatinine Ratio Glucose POC Glucose 341 H 235 H Calculated Osmolality Calcium Magnesium Preliminary micro results at discharge 06/17/17 14:06 Blood Culture - Preliminary Blood No growth at 3 days 06/17/17 14:06 Blood Culture - Preliminary Blood No growth at 3 days DS: Provider Date of admission: 06/17/17 15:11 Primary care physician: Zenobia Murry MD Attending physician on admission: Taiwo Estevez MD Consults: 06/17/17 17:33 Consult to Pastoral Services [CONS] Routine Comment: Pastoral Screen: Request Embedded Software Engineer Visit 06/17/17 17:34 Consult to Case Mgmt/Social Srvs [CONS] Routine Reason for Case Mgmt/Social Srvs: Discharge Planning 06/17/17 17:49 Consult to Speech Therapy [CONS] Routine Reason for Speech Therapy: Bedside Swallow Eval 06/17/17 18:12 Consult to Physician [CONS] Routine Comment: V-tach and afib Consulting Provider: Cardiology - [facility] Consulting Provider Notified: Yes Person Notified: Dr. Esteban Date Notified: 06/17/17 Time Notified: 18:16 06/18/17 09:09 Consult to Physical Therapy [CONS] Routine Reason for Physical Therapy: Evaluate and Treat Discharging clinician: Sky Linares DO
[2017-06-22 16:53] VITALS: BP 127/72
== END 2017-06-22 16:40 | disposition home or self-care (01) | DRG 178 ==
LOC: EDUNIT# → N.ED 12:52 → N.EDINP 15:11 → N.2E 16:53 → N.CC 18:38 → N.TELEN 06-20 14:27
PROVIDERS: ADMIT Internal Medicine; ATTEND Internal Medicine
PROC: CLCCHCL (ICD-10-PCS; 2017-06-19 10:15)